=== PATIENT | female | born 1940 | race Caucasian/White ===

== ENCOUNTER → 2020-03-17 15:41 | Outpatient (BNVA) | payer MEDICAID, SELFPAY | PROVIDERS: PCP Internal Medicine; Visit Provider Internal Medicine Gastroenterology ==

== ENCOUNTER 2020-06-11 10:07 | Outpatient (REF) | payer MEDICAID, SELFPAY ==
[2020-06-11 11:15] LABS: MANUAL DIFF FLAG NO
[2020-06-11 11:24] LABS: Basophils Percent Auto 0.3 % (0-2); Eosinophils Absolute Auto 0.1 X10*3/uL (0.0-0.4); Eosinophils Percent Auto 1.6 % (0-4); Hematocrit 31.9 % (37-47); Hemoglobin 9.8 g/dl (12.0-16.0); Imm Gran Abs Auto 0.01 X10*3/uL (0.00-0.03); Imm Gran Pct Auto 0.1 % (0.0-0.4); Lymphocytes Absolute Auto 4.4 X10*3/uL (1.2-4.9); Lymphocytes Percent Auto 49.2 % (20-40); Mean Corpuscular HGB Conc 30.7 g/dl (31.0-35.0); Mean Corpuscular Hemoglobin 23.7 pg (27.0-33.0); Mean Corpuscular Volume 77.1 fL (80-98); Mean Platelet Volume 9.9 fL (9.4-12.3); Monocytes Absolute Auto 0.7 X10*3/uL (0.1-1.2); Monocytes Percent Auto 7.4 % (2-11); Neutrophils Absolute Auto 3.7 X10*3/uL (2.0-8.3); Neutrophils Percent Auto 41.4 % (45-73); Platelet Count 498 X10*3/uL (160-400); Red Blood Count 4.14 X10*6/uL (4.20-5.50); Red Cell Distribution Width 16.4 % (11.0-16.0); White Blood Count 8.9 X10*3/uL (4.8-10.8)
[2020-06-11 11:32] LABS: Estimated Average Glucose 131 mg/dL; Hemoglobin A1c % 6.2 %
[2020-06-11 11:55] LABS: Creatinine Urine 31.32 mg/dL; Microalbum/Creatinine Ratio Ur 44.6 ug/mg cr
[2020-06-11 12:22] LABS: Folate 14.2 ng/mL (> or = 4.0); Vitamin B12 987 pg/mL (200-900)
[2020-06-11 12:26] LABS: Ferritin 4 ng/mL (10-250); TSH reflex Free T4 4.77 uIU/mL (0.32-4.0)
[2020-06-11 12:34] LABS: Anion Gap 15 (12-20); Blood Urea Nitrogen 9 mg/dL (9-16); Calcium 9.9 mg/dL (8.4-10.2); Carbon Dioxide 26 mmol/L (22-29); Chloride 97 mmol/L (96-108); Estimated Glomerular Filt Rate > 60; Glucose Random 138 mg/dL (60-115); Potassium 4.1 mmol/L (3.3-5.1); Sodium 134 mmol/L (135-145)
[2020-06-11 13:21] LABS: Free T4 (Free Thyroxine) 0.89 ng/dL (0.71-1.85)
[2020-06-12 03:11] LABS: LDL Cholesterol Direct 125 mg/dL (<100)
== END 2020-06-11 10:08 | disposition home or self-care (01) ==
LOC: HO.HMGCLDS 10:07
PROVIDERS: Internal Medicine Gastroenterology; PCP Internal Medicine; Visit Provider Internal Medicine
DX: D64.9 Anemia, unspecified (principal); E13.9 Other specified diabetes mellitus without complications; E61.1 Iron deficiency; F41.1 Generalized anxiety disorder; I10 Essential (primary) hypertension; K31.84 Gastroparesis; K59.01 Slow transit constipation; N32.9 Bladder disorder, unspecified; E53.8 Deficiency of other specified B group vitamins
CPT/HCPCS: 36415; 80048; 82043; 82607; 82728; 82746; 83036; 83721; 84439; 84443; 85025

== ENCOUNTER → 2020-07-07 10:46 | Outpatient (BNVA) | payer MEDICAID, SELFPAY | PROVIDERS: Visit Provider Internal Medicine Gastroenterology ==

== ENCOUNTER → 2020-07-09 09:16 | Outpatient (REF) | payer MEDICAID, SELFPAY ==
--- NOTE | 2020-07-09 09:22 | CA_ITS ---
Transthoracic Echocardiogram Patient (Last, First, Middle): Bimal Bower J Gender: Female Date of : 1940 Age: 80 Procedure Date: 07/09/2020 Procedure Type: Transthoracic Echocardiogram Location: OP Height: 165.1 cm Weight: 72.58 kg BSA: 1.80 m2 Heart Rate: bpm BP: 140 / 80 mmHg Systems Qa Analyst: DEISY Ventura MD: Lai Voss MD Tour Escort: Alistair Colin MD Symptoms: Intermittent palpitations. Study Quality: Fair ECG Rhythm: Sinus Conclusions: - 1. Normal LV systolic function with impaired relaxation filling pattern 2. Normal cardiac valvular Doppler 3. Normal RV systolic pressure 4. No pericardial effusion Findings Left Ventricle Normal left ventricular size, thickness, and systolic function. The visually estimated ejection fraction is between 60-65%. Spectral Doppler is indicative of an impaired relaxation filling pattern. E/E prime ratio is between 8 and 15 consistent with indeterminate filling pressures. Calculated peak global longitudinal strain is-16.9% which is marginally reduced Right Ventricle Normal right ventricular cavity size and systolic function. Atria Both atria are normal in size. There is lipomatous hypertrophy of the interatrial septum. There is no evidence of interatrial shunt. Aortic Valve The aortic valve structure and function is likely normal. There is no aortic valve stenosis. There is no aortic valve regurgitation. Mitral Valve Likely normal mitral valve structure and function. There is trace mitral valve regurgitation. There is no mitral valve stenosis. Pulmonic Valve The pulmonic valve was not well visualized. Tricuspid Valve Likely normal tricuspid valve structure and function. There is trace tricuspid valve regurgitation. The right ventricular systolic pressure is normal. The right ventricular systolic pressure is 19 mmHg. Normal right atrial pressure. There is no evidence of pulmonary hypertension. Great Vessels All visible segments of the aorta are normal in size. The pulmonary artery was not well visualized. Venous The inferior vena cava is normal in size and collapses greater than 50% with inspiration. Pericardium/Pleural There is no evidence of pericardial effusion. Prior Study Comparison No significant change compared to prior study dated: 09/06/2017. Measurements 2D Linear Measurements IVSd: 1.12 0.6-0.9/0.6-1.0 cm LVIDd: 3.58 3.9-5.3/4.2-5.9 cm LVIDd Index: 1.99 2.4-3.2/2.2-3.1 cm/m2 LVIDs: 2.75 2.0-3.6 cm LVPWd: 1.12 0.7-1.1 cm Ao Root: 3.10 2.1-3.5 cm LA Diam: 3.30 2.7-3.8/3.0-4.0 cm LAIDs Index: 1.83 1.5-2.3 cm/m2 LV Mass: 157.30 67-162/88-224 g LV Mass Index: 87.39 43-95/49-115 g/m2 LVOT Diam: 2.00 3.0+(-)1.3 cm 2D Systolic Function EF 4C: 63.70 >55% EF 2C: 59.50 >55% EF BiP: 62.20 >55% Mitral Valve MV Pk E: 0.83 MV PK A: 1.13 MV Decel Time: 114.00 E/A: 0.70 E'Lateral: 6.74 E'Medial: 6.96 E/E' Med: 12.00 E/E' Lat: 12.30 PHT: 33.00 MVA PHT: 6.67 Decel Red [place]ow: 7.33 Aortic Valve AoV Pk Toney: 1.46 AoV Mn Toney: 1.02 AoV VTI: 0.30 AoV Pk Grad: 9.00 Aov Mn Grad: 5.00 MARY Cont.VTI: 1.88 LVOT LVOT Pk Toney: 0.78 LVOT Mn Toney: 0.51 LVOT VTI: 0.18 LVOT Pk Grad: 2.00 LVOT Mn Grad: 1.00 LVOT Diam: 2.00 LVOT Area: 3.14 Diastolic Function MV Pk E: 0.83 MV Pk A: 1.13 E/A: 0.70 E'Medial: 6.96 E/E' Med: 12.00 E' Laterial: 6.74 E/E' Lat: 12.30 Tricuspid Valve TR Pk Toney: 2.01 TR Pk Grad: 16.00 RA Press: 3.00 RVSP: 19.00 Great Vessels Aorta Ao Root-2D: 3.10 2.0-3.7 cm Ao Asc: 3.00 2.1-3.4 cm Updated in Other Vendor System with Status of Final Alistair Colin MD electronically signed on 07/09/2020 12:57:43 PM with status of Final
== END ==
LOC: HO.CARD 09:16
PROVIDERS: Visit Provider Internal Medicine Medical Oncology
DX: R00.2 Palpitations (principal); D50.9 Iron deficiency anemia, unspecified
CPT/HCPCS: 93306; 93356

== ENCOUNTER 2020-07-11 13:06 | Outpatient (REF) | payer MEDICAID, SELFPAY | END 2020-07-11 13:07 | disposition home or self-care (01) | LOC: HO.MDS 13:06 | PROVIDERS: PCP Internal Medicine; Visit Provider Internal Medicine Medical Oncology | DX: D50.9 Iron deficiency anemia, unspecified (principal) | CPT/HCPCS: 96365; J1439 ==

== ENCOUNTER 2020-07-18 15:41 | Outpatient (REF) | payer MEDICAID, SELFPAY | END 2020-07-18 15:42 | disposition home or self-care (01) | LOC: HO.MDS 15:41 | PROVIDERS: PCP Internal Medicine; Visit Provider Internal Medicine Medical Oncology | DX: D50.9 Iron deficiency anemia, unspecified (principal) | CPT/HCPCS: 96365; J1439 ==

== ENCOUNTER → 2020-07-24 14:15 | Outpatient (BNVA) | payer MEDICAID, SELFPAY | PROVIDERS: PCP Internal Medicine; Visit Provider Internal Medicine Cardiovascular Disease | DX: R00.2 Palpitations (principal); I10 Essential (primary) hypertension | CPT/HCPCS: 93005; 99212 ==

== ENCOUNTER 2020-08-22 11:49 | Outpatient (REF) | payer MEDICAID, SELFPAY ==
[2020-08-22 14:00] LABS: MANUAL DIFF FLAG NO
[2020-08-22 14:16] LABS: Basophils Percent Auto 0.6 % (0-2); Eosinophils Absolute Auto 0.2 X10*3/uL (0.0-0.4); Eosinophils Percent Auto 2.6 % (0-4); Hematocrit 37.2 % (37-47); Hemoglobin 12.2 g/dl (12.0-16.0); Imm Gran Abs Auto 0.02 X10*3/uL (0.00-0.03); Imm Gran Pct Auto 0.3 % (0.0-0.4); Lymphocytes Absolute Auto 2.8 X10*3/uL (1.2-4.9); Lymphocytes Percent Auto 40.7 % (20-40); Mean Corpuscular HGB Conc 32.8 g/dl (31.0-35.0); Mean Corpuscular Hemoglobin 27.6 pg (27.0-33.0); Mean Corpuscular Volume 84.2 fL (80-98); Mean Platelet Volume 10.7 fL (9.4-12.3); Monocytes Absolute Auto 0.6 X10*3/uL (0.1-1.2); Monocytes Percent Auto 8.5 % (2-11); Neutrophils Absolute Auto 3.2 X10*3/uL (2.0-8.3); Neutrophils Percent Auto 47.3 % (45-73); Platelet Count 402 X10*3/uL (160-400); Red Blood Count 4.42 X10*6/uL (4.20-5.50); Red Cell Distribution Width 20.3 % (11.0-16.0); White Blood Count 6.8 X10*3/uL (4.8-10.8)
[2020-08-22 14:23] LABS: Estimated Average Glucose 126 mg/dL
[2020-08-22 14:27] LABS: Alanine Aminotransferase 12 U/L (0-31); Albumin Level 4.1 g/dL (3.5-5.0); Alkaline Phosphatase 70 U/L (39-117); Anion Gap 17 (12-20); Aspartate Amino Transferase 11 U/L (5-31); Bilirubin Total 0.8 mg/dL (0.0-1.0); Blood Urea Nitrogen 8 mg/dL (9-16); Carbon Dioxide 23 mmol/L (22-29); Chloride 97 mmol/L (96-108); Estimated Glomerular Filt Rate > 60; Glucose Random 195 mg/dL (60-115); Potassium 3.8 mmol/L (3.3-5.1); Sodium 133 mmol/L (135-145); Total Protein 7.9 g/dL (6.5-8.0)
[2020-08-22 14:44] LABS: Ferritin 499 ng/mL (10-250)
[2020-08-22 14:50] LABS: TSH reflex Free T4 2.47 uIU/mL (0.32-4.0)
== END 2020-08-22 11:50 | disposition home or self-care (01) ==
LOC: HO.HMGCLDS 11:49
PROVIDERS: Internal Medicine Gastroenterology; PCP Internal Medicine; Visit Provider Internal Medicine
DX: E13.9 Other specified diabetes mellitus without complications (principal); F41.1 Generalized anxiety disorder; I10 Essential (primary) hypertension; K59.01 Slow transit constipation; N32.9 Bladder disorder, unspecified; E61.1 Iron deficiency
CPT/HCPCS: 36415; 80053; 82728; 83036; 84443; 85025

== ENCOUNTER 2020-10-15 17:49 | Emergency (ER) | payer MEDICAID, SELFPAY | END 2020-10-15 20:07 | disposition left against medical advice (07) | LOC: HO.ED 20:05 | PROVIDERS: Emergency Provider Emergency Medicine; PCP Internal Medicine | DX: R10.9 Unspecified abdominal pain (principal) ==

== ENCOUNTER 2021-01-02 16:02 | Outpatient (REF) | payer MEDICAID, SELFPAY ==
[2021-01-02 16:18] LABS: MANUAL DIFF FLAG NO
[2021-01-02 16:41] LABS: Basophils Percent Auto 0.4 % (0-2); Eosinophils Absolute Auto 0.3 X10*3/uL (0.0-0.4); Eosinophils Percent Auto 3.2 % (0-4); Hematocrit 37.7 % (37.0-47.0); Hemoglobin 12.5 g/dl (12.0-16.0); Imm Gran Abs Auto 0.02 X10*3/uL (0.00-0.03); Imm Gran Pct Auto 0.2 % (0.0-0.4); Lymphocytes Absolute Auto 3.3 X10*3/uL (1.2-4.9); Lymphocytes Percent Auto 35.5 % (20-40); Mean Corpuscular HGB Conc 33.2 g/dl (31.0-35.0); Mean Corpuscular Hemoglobin 29.2 pg (27.0-33.0); Mean Corpuscular Volume 88.1 fL (80.0-98.0); Mean Platelet Volume 10.5 fL (9.4-12.3); Monocytes Absolute Auto 0.8 X10*3/uL (0.1-1.2); Monocytes Percent Auto 8.4 % (2-11); Neutrophils Absolute Auto 4.9 x10*3/uL (2.0-8.3); Neutrophils Percent Auto 52.3 % (45-73); Platelet Count 372 X10*3/uL (160-400); Red Blood Count 4.28 X10*6/uL (4.20-5.50); Red Cell Distribution Width 13.7 % (11.0-16.0); White Blood Count 9.3 X10*3/uL (4.8-10.8)
[2021-01-02 16:43] LABS: Estimated Average Glucose 137 mg/dL; Hemoglobin A1C 148.8286 umol/L; Hemoglobin A1c % 6.4 %
[2021-01-02 17:07] LABS: Alanine Aminotransferase 13 U/L (0-31); Alkaline Phosphatase 69 U/L (39-117); Anion Gap 15 (12-20); Aspartate Amino Transferase 11 U/L (5-31); Blood Urea Nitrogen 9 mg/dL (9-16); Calcium 10.1 mg/dL (8.4-10.2); Carbon Dioxide 26 mmol/L (22-29); Chloride 96 mmol/L (96-108); Estimated Glomerular Filt Rate > 60; Glucose Random 167 mg/dL (60-115); Potassium 4.1 mmol/L (3.3-5.1); Sodium 133 mmol/L (135-145); Total Protein 7.9 g/dL (6.5-8.0)
[2021-01-02 17:30] LABS: Vitamin B12 354 pg/mL (200-900)
[2021-01-02 17:32] LABS: Ferritin 234 ng/mL (10-250); TSH reflex Free T4 3.37 uIU/mL (0.32-4.0)
[2021-01-08 14:11] LABS: Vitamin D 25-OH, D2 <4 ng/mL; Vitamin D 25-OH, D3 43 ng/mL; Vitamin D 25-OH, Total 43 ng/mL (30-100)
== END 2021-01-02 16:03 | disposition home or self-care (01) ==
LOC: HO.LAB 16:02
PROVIDERS: PCP Internal Medicine; Visit Provider Internal Medicine
DX: R26.2 Difficulty in walking, not elsewhere classified (principal); E61.1 Iron deficiency; N32.9 Bladder disorder, unspecified; F41.1 Generalized anxiety disorder; I10 Essential (primary) hypertension; E13.9 Other specified diabetes mellitus without complications; R53.1 Weakness
CPT/HCPCS: 36415; 80053; 82306; 82607; 82728; 83036; 84443; 85025

== ENCOUNTER 2021-05-15 13:07 | Outpatient (REF) | payer MEDICAID, SELFPAY ==
[2021-05-15 13:47] LABS: MANUAL DIFF FLAG NO
[2021-05-15 13:53] LABS: Basophils Percent Auto 0.5 % (0-2); Eosinophils Absolute Auto 0.1 X10*3/uL (0.0-0.4); Eosinophils Percent Auto 1.4 % (0-4); Hematocrit 39.1 % (37.0-47.0); Hemoglobin 12.6 g/dl (12.0-16.0); Imm Gran Abs Auto 0.03 X10*3/uL (0.00-0.03); Imm Gran Pct Auto 0.4 % (0.0-0.4); Mean Corpuscular HGB Conc 32.2 g/dl (31.0-35.0); Mean Corpuscular Hemoglobin 28.3 pg (27.0-33.0); Mean Corpuscular Volume 87.7 fL (80.0-98.0); Mean Platelet Volume 10.5 fL (9.4-12.3); Monocytes Absolute Auto 0.6 X10*3/uL (0.1-1.2); Neutrophils Absolute Auto 4.6 x10*3/uL (2.0-8.3); Neutrophils Percent Auto 54.7 % (45-73); Platelet Count 388 X10*3/uL (160-400); Red Blood Count 4.46 X10*6/uL (4.20-5.50); Red Cell Distribution Width 14.1 % (11.0-16.0); White Blood Count 8.3 X10*3/uL (4.8-10.8)
[2021-05-15 14:06] LABS: Estimated Average Glucose 128 mg/dL; Hemoglobin A1c % 6.1 %
[2021-05-15 14:21] LABS: Alanine Aminotransferase 15 U/L (0-31); Albumin Level 3.9 g/dL (3.5-5.0); Alkaline Phosphatase 60 U/L (39-117); Anion Gap 14 (12-20); Aspartate Amino Transferase 11 U/L (5-31); Bilirubin Total 1.2 mg/dL (0.0-1.0); Blood Urea Nitrogen 10 mg/dL (9-16); Calcium 10.3 mg/dL (8.4-10.2); Carbon Dioxide 28 mmol/L (22-29); Chloride 97 mmol/L (96-108); Estimated Glomerular Filt Rate > 60; Glucose Random 172 mg/dL (60-115); Potassium 4.2 mmol/L (3.3-5.1); Sodium 135 mmol/L (135-145); Total Protein 7.7 g/dL (6.5-8.0)
[2021-05-15 14:41] LABS: TSH reflex Free T4 2.86 uIU/mL (0.32-4.0)
== END 2021-05-15 13:08 | disposition home or self-care (01) ==
LOC: HO.HMGCLDS 13:07
PROVIDERS: Visit Provider Internal Medicine
DX: R79.89 Other specified abnormal findings of blood chemistry (principal); E13.9 Other specified diabetes mellitus without complications; E66.09 Other obesity due to excess calories; F41.1 Generalized anxiety disorder; I10 Essential (primary) hypertension; N32.9 Bladder disorder, unspecified
CPT/HCPCS: 36415; 80053; 83036; 84443; 85025

== ENCOUNTER 2021-10-03 11:57 | Outpatient (REF) | payer MEDICAID, SELFPAY ==
[2021-10-03 14:00] LABS: Basophils Percent Auto 0.5 % (0-2); Eosinophils Absolute Auto 0.2 X10*3/uL (0.0-0.4); Hematocrit 36.9 % (37.0-47.0); Hemoglobin 12.4 g/dl (12.0-16.0); Imm Gran Abs Auto 0.03 X10*3/uL (0.00-0.03); Imm Gran Pct Auto 0.4 % (0.0-0.4); Lymphocytes Percent Auto 36.6 % (20-40); MANUAL DIFF FLAG NO; Mean Corpuscular HGB Conc 33.6 g/dl (31.0-35.0); Mean Corpuscular Hemoglobin 29.4 pg (27.0-33.0); Mean Corpuscular Volume 87.4 fL (80.0-98.0); Mean Platelet Volume 10.9 fL (9.4-12.3); Monocytes Absolute Auto 0.6 X10*3/uL (0.1-1.2); Monocytes Percent Auto 7.1 % (2-11); Neutrophils Absolute Auto 4.4 x10*3/uL (2.0-8.3); Neutrophils Percent Auto 53.4 % (45-73); Platelet Count 353 X10*3/uL (160-400); Red Blood Count 4.22 X10*6/uL (4.20-5.50); Red Cell Distribution Width 13.9 % (11.0-16.0); White Blood Count 8.2 X10*3/uL (4.8-10.8)
[2021-10-03 14:11] LABS: Estimated Average Glucose 131 mg/dL; Hemoglobin A1c % 6.2 %
[2021-10-03 14:13] LABS: Alanine Aminotransferase 12 U/L (0-31); Albumin Level 3.9 g/dL (3.5-5.0); Alkaline Phosphatase 56 U/L (39-117); Anion Gap 16 (12-20); Aspartate Amino Transferase 10 U/L (5-31); Bilirubin Total 1.4 mg/dL (0.0-1.0); Blood Urea Nitrogen 11 mg/dL (9-16); Calcium 9.4 mg/dL (8.4-10.2); Carbon Dioxide 26 mmol/L (22-29); Chloride 97 mmol/L (96-108); Estimated Glomerular Filt Rate > 60; Glucose Random 157 mg/dL (60-115); Potassium 3.6 mmol/L (3.3-5.1); Sodium 135 mmol/L (135-145); Total Protein 7.6 g/dL (6.5-8.0)
[2021-10-03 14:34] LABS: TSH reflex Free T4 2.95 uIU/mL (0.32-4.0)
[2021-10-04 09:02] LABS: LDL Cholesterol Direct 138 mg/dL (<100)
[2021-10-05 08:32] LABS: Vitamin B12 227 pg/mL (200-900)
[2021-10-07 15:17] LABS: Vitamin D 25-OH, D2 <4 ng/mL; Vitamin D 25-OH, D3 38 ng/mL; Vitamin D 25-OH, Total 38 ng/mL (30-100)
== END 2021-10-03 11:58 | disposition home or self-care (01) ==
LOC: HO.HMGCLDS 11:57
PROVIDERS: PCP Internal Medicine; Visit Provider Internal Medicine
DX: D64.9 Anemia, unspecified (principal); E13.9 Other specified diabetes mellitus without complications; E66.09 Other obesity due to excess calories; F41.1 Generalized anxiety disorder; I10 Essential (primary) hypertension; K31.84 Gastroparesis; M17.10 Unilateral primary osteoarthritis, unspecified knee; N32.9 Bladder disorder, unspecified; R29.6 Repeated falls; R53.1 Weakness; R79.89 Other specified abnormal findings of blood chemistry
CPT/HCPCS: 36415; 80053; 82306; 82607; 83036; 83721; 84443; 85025

== ENCOUNTER 2022-06-30 12:27 | Outpatient (REF) | payer MEDICAID, SELFPAY ==
[2022-06-30 14:01] LABS: MANUAL DIFF FLAG NO
[2022-06-30 14:19] LABS: Estimated Average Glucose 146 mg/dL; Hemoglobin A1c % 6.7 %
[2022-06-30 14:26] LABS: Basophils Absolute Auto 0.1 X10*3/uL (0.0-0.2); Basophils Percent Auto 0.8 % (0-2); Eosinophils Absolute Auto 0.2 X10*3/uL (0.0-0.4); Eosinophils Percent Auto 2.8 % (0-4); Hematocrit 36.2 % (37.0-47.0); Hemoglobin 11.4 g/dl (12.0-16.0); Imm Gran Abs Auto 0.02 X10*3/uL (0.00-0.03); Imm Gran Pct Auto 0.3 % (0.0-0.4); Mean Corpuscular HGB Conc 31.5 g/dl (31.0-35.0); Mean Corpuscular Hemoglobin 26.8 pg (27.0-33.0); Mean Platelet Volume 10.9 fL (9.4-12.3); Monocytes Absolute Auto 0.6 X10*3/uL (0.1-1.2); Monocytes Percent Auto 8.2 % (2-11); Neutrophils Absolute Auto 3.4 x10*3/uL (2.0-8.3); Neutrophils Percent Auto 46.9 % (45-73); Platelet Count 412 X10*3/uL (160-400); Red Blood Count 4.26 X10*6/uL (4.20-5.50); Red Cell Distribution Width 15.4 % (11.0-16.0); White Blood Count 7.2 X10*3/uL (4.8-10.8)
[2022-06-30 14:26] LABS: Appearance Urine Clear; Color Urine Yellow; Glucose Urine UA Negative (Negative); Leukocyte Esterase Urine Negative (Negative); Nitrite Urine Negative (Negative); PH 7.5 (5.0-9.0); Specific Gravity - Urine 1.015 (1.005-1.025); Urine Blood Negative (Negative); Urine Ketones Negative (Negative); Urine Protein Negative (Neg-Trace)
[2022-06-30 14:31] LABS: Alanine Aminotransferase 12 U/L (0-31); Albumin Level 3.7 g/dL (3.5-5.0); Alkaline Phosphatase 55 U/L (39-117); Anion Gap 9 (12-20); Aspartate Amino Transferase 11 U/L (5-31); Bilirubin Total 0.9 mg/dL (0.0-1.0); Blood Urea Nitrogen 13 mg/dL (9-16); Calcium 9.9 mg/dL (8.4-10.2); Carbon Dioxide 33 mmol/L (22-29); Chloride 100 mmol/L (96-108); Cholesterol 209 mg/dL; Estimated Glomerular Filt Rate > 60; Glucose Fasting 148 mg/dL (60-99); HDL Cholesterol 48 mg/dL; LDL Cholesterol Calculated 119 mg/dl; Potassium 4.4 mmol/L (3.3-5.1); Sodium 138 mmol/L (135-145); Total Protein 7.2 g/dL (6.5-8.0); Triglycerides 210 mg/dL
[2022-06-30 14:46] LABS: Ferritin 16 ng/mL (10-250); Vitamin B12 575 pg/mL (200-900)
[2022-07-05 15:18] LABS: Vitamin D 25-OH, D2 <4 ng/mL; Vitamin D 25-OH, D3 40 ng/mL; Vitamin D 25-OH, Total 40 ng/mL (30-100)
== END 2022-06-30 12:28 | disposition home or self-care (01) ==
LOC: HO.HMGCLDS 12:27
PROVIDERS: PCP Internal Medicine; Visit Provider Internal Medicine
DX: D64.9 Anemia, unspecified (principal); E13.9 Other specified diabetes mellitus without complications; E66.09 Other obesity due to excess calories; F41.1 Generalized anxiety disorder; I10 Essential (primary) hypertension; K31.84 Gastroparesis; N32.9 Bladder disorder, unspecified; R79.89 Other specified abnormal findings of blood chemistry; R35.89 Other polyuria; R53.1 Weakness
CPT/HCPCS: 36415; 80053; 80061; 81003; 82306; 82607; 82728; 83036; 84443; 85025

== ENCOUNTER 2022-10-20 12:07 | Outpatient (AMB) | payer MEDICAID, SELFPAY ==
[2022-10-20 12:08] VITALS: BP 158/82; PULSE 80; O2SAT 95; BMI 29.3
--- NOTE | 2022-10-20 12:08 | MHC.PC.OV ---
Vital Signs 10/20/22 12:08 Height 5 ft Weight 150 lb 4 oz BMI 29.3 BP 158/82 H Blood Pressure Location Lt brachial Position Sitting Pulse 80 Pulse Source Pulse Oximeter Pulse Oximetry (%) 95 Oxygen Delivery Method Room Air Intake Visit Reasons: HDF ~ Post hospital discharge FU Allergies simvastatin Allergy (Unknown, Verified 10/20/22 12:09) shortness of breath Medication List - Last Reconciled 10/20/22 by Josse Robles MD alprazolam 0.25 mg PO ONCE PRN 30 days aspirin (Adult Aspirin Regimen) 81 mg PO DAILY 90 days atenolol 50 mg PO BID blood sugar diagnostic (FreeStyle Lite Strips) Use to test blood sugar twice daily. cholecalciferol (vitamin D3) 25 mcg PO DAILY clonidine HCl 0.2 mg PO BEDTIME 90 days commode 3-in-1 commode chair cyanocobalamin (vitamin B-12) 1,000 mcg PO DAILY 90 days docusate sodium (DOK) 100 mg PO DAILY PRN 90 days escitalopram oxalate 10 mg PO DAILY 90 days glipizide 5 mg PO BID 90 days levothyroxine 25 mcg PO DAILY 90 days losartan 50 mg PO BID metformin 1,000 mg PO BID 90 days metoclopramide HCl 5 mg PO ONCE PRN omeprazole 20 mg PO DAILY polyethylene glycol 3350 (Miralax) 17 grams PO DAILY sennosides (Natural Senna Laxative) 8.6 mg PO BEDTIME simethicone (Gas Relief (simethicone)) 0.6 mL PO QID PRN 90 days tolterodine ER 2 mg PO DAILY 90 days [tub transfer bench As directed] Tobacco use date assessed: 10/20/22 Fall risk assessment: 2 + Falls in past year Last assessed Fall Risk: 10/20/22 Dental Screening Dental Screen Date: 10/20/22 Did you have a dental visit in the last 12 months?: No Did you have a dental problem in the last 6 months where you did not have access to dental care?: No Was dental information given to patient?: No HPI HDF ~ Post hospital discharge FU HPI Details Patient is 82-year-old female this is a hospital discharge follow-up from October 15 to October 18. Patient presented with increasing shortness of breath up day before patient was seen in urgent care prednisone and antibiotic was started in chest x-ray was ordered Patient presented with increasing shortness of breath up day before patient was seen in urgent care prednisone and antibiotic was started in chest x-ray was ordered But patient never had a chance to do a chest x-ray as she has started having left arm weakness which progressively got worse. Patient have a history of mediastinal mass that she declined workup 12 years ago. In emergency room her left hand strength was 3 x 4 Patient has hypertension and she is taking number of medications to control the hypertension by Nephrology. She is also on Lipitor 40 mg for lipid control She is diabetic and is on glipizide 5 mg and metformin 1 g daily Other medications are omeprazole and bladder medication for overactive bladder. 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 Patient was supposed to be discharged to rehab but family took her home. Left anterior mediastinal mass has been change in size and is now measuring 8.6 x 5.4 cm compared to approximately 5.3 x 4.2 cm on September of 2020 Patient has a visiting nurse come over she is going through physical therapy at home However her Xanax was held because patient was having difficulty with the physical therapy and she got anxious and her blood pressure shot up I have discussed with the family member that we need to make certain decisions at this time whether to keep patient comfortable and give her Xanax and control blood pressure or to try to get her stronger. However considering the findings of MRI and chest x-ray there is increase risk of future strokes. At this point it is highly important for the family to be aware of possibility of recurrent hospitalizations I have discussed the MOLST form with the family member and handed to them they will discuss it further at home with the patient and other family members and make that decision. Patient has appointment early next month we can address that then. [facility] Medical History Anxiety, generalized Bladder disorder Constipation by delayed colonic transit CVA (cerebral vascular accident) Diabetes 1.5, managed as type 2 Gastroparesis Hypertension, essential Iron deficiency Low hemoglobin Surgical History No pertinent past surgical history Family History Father No problems noted. Mother No problems noted. Brother Diabetes Sister Diabetes Social History Household Members: Children Housing: House Are you a primary customer care coordinator to a significant other at home: No Do you presently have visiting nurse or other home services: Yes (physical therapy) Alcohol intake: never Patient Tobacco Use Status: Never used Tobacco e-Cigarette/Vaping Use: Never Used service: No Current occupational status: retired Cognitive needs: No Hearing needs: No Vision needs: Yes Questionnaire Thrive Questionnaire Date Thrive assessed: 06/30/22 AUDIT C Alcohol Use Questionnaire (AUDIT-C) 1. How often do you have a drink containing alcohol?: Never 3. How often do you have six or more drinks on one occasion?: Never Total Score: 0 Score Reviewed/Action Taken: Yes Review of Systems Const Denies chills and Denies fever(s) ENT Denies epistaxis and Denies nasal discharge Card Denies chest pain Resp Denies chest congestion, Denies cough and Denies hemoptysis GI Denies diarrhea and Denies nausea Skin/Breast Denies rash Neuro Reports no additional complaints Psych Reports no additional complaints Endo Reports no additional complaints Physical exam (Primary Care) Vital Signs: Last Vital Signs Pulse 80 10/20/22 12:08 BP 158/82 H 10/20/22 12:08 Pulse Ox 95 10/20/22 12:08 Oxygen Delivery Method Room Air 10/20/22 12:08 BMI result Body Mass Index 29.3 Tobacco/Smoking Status: Tobacco use Status Tobacco use date assessed 10/20/22 10/20/22 12:09 Patient Tobacco Use Status Never used Tobacco 10/20/22 12:09 e-Cigarette/Vaping Use Never Used 10/20/22 12:09 Thrive Assessment: Date of Thrive Assessment Date Thrive assessed 05/03/23 08/23/23 12:09 Forms completed: Health Care Proxy and MOLST Actual minutes spent: 17 Const General: cooperative, comfortable and no acute distress Orientation/consciousness: patient oriented x3 HENMT Head: Yes normocephalic Eyes General: appearance normal, both eyes and all related structures Neck Neck: Yes supple Resp Effort & Inspection: normal respiratory effort, no cough and no stridor Cardio Rhythm: regular rhythm Heart sounds: S1 normal heart sound present and S2 normal heart sound present Skin General skin exam: turgor normal Neuro Other: Wheelchair dependent left hand weaker than right lower extremity strand 4 x 4 left leg 4 x 4 right leg General: patient oriented x3, tone normal and moves all extremities Extrem Right lower extremity: no edema Left lower extremity: no edema Assessment and Plan Assessment & Plan (1) Hospital discharge follow-up: Code(s): Z09 - Encounter for follow-up examination after completed treatment for conditions other than malignant neoplasm (2) Mediastinal mass: Code(s): J98.59 - Other diseases of mediastinum, not elsewhere classified (3) Recurrent strokes: Code(s): I63.9 - Cerebral infarction, unspecified (4) Recurrent falls: Code(s): R29.6 - Repeated falls (5) Uncontrolled hypertension: Code(s): I10 - Essential (primary) hypertension (6) Diabetes 1.5, managed as type 2: Code(s): E13.9 - Other specified diabetes mellitus without complications (7) Anxiety, generalized: Code(s): F41.1 - Generalized anxiety disorder (8) Bladder disorder: Code(s): N32.9 - Bladder disorder, unspecified (9) Gastroparesis: Code(s): K31.84 - Gastroparesis (10) Frail elderly: Code(s): R54 - Age-related physical debility (11) Wheelchair dependence: Code(s): Z99.3 - Dependence on wheelchair Plan Patient is 82-year-old female this is a hospital discharge follow-up from October 15 to October 18. Patient presented with increasing shortness of breath up day before patient was seen in urgent care prednisone and antibiotic was started in chest x-ray was ordered Patient presented with increasing shortness of breath up day before patient was seen in urgent care prednisone and antibiotic was started in chest x-ray was ordered But patient never had a chance to do a chest x-ray as she has started having left arm weakness which progressively got worse. Patient have a history of mediastinal mass that she declined workup 12 years ago. In emergency room her left hand strength was 3 x 4 Patient has hypertension and she is taking number of medications to control the hypertension by Nephrology. She is also on Lipitor 40 mg for lipid control She is diabetic and is on glipizide 5 mg and metformin 1 g daily Other medications are omeprazole and bladder medication for overactive bladder. 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 Patient was supposed to be discharged to rehab but family took her home. Left anterior mediastinal mass has been change in size and is now measuring 8.6 x 5.4 cm compared to approximately 5.3 x 4.2 cm on September of 2020 Patient has a visiting nurse come over she is going through physical therapy at home However her Xanax was held because patient was having difficulty with the physical therapy and she got anxious and her blood pressure shot up I have discussed with the family member that we need to make certain decisions at this time whether to keep patient comfortable and give her Xanax and control blood pressure or to try to get her stronger. However considering the findings of MRI and chest x-ray there is increase risk of future strokes. At this point it is highly important for the family to be aware of possibility of recurrent hospitalizations I have discussed the MOLST form with the family member and handed to them they will discuss it further at home with the patient and other family members and make that decision. Patient has appointment early next month we can address that then. Medications: New sennosides (Natural Senna Laxative) take 1-2 tablets by mouth every night at bedtimes PRN for constipation 8.6 mg PO BEDTIME 90 tabs 0RF omeprazole 20 mg PO DAILY 90 caps 0RF Epigastric pain/dyspepsia Refilled alprazolam 0.25 mg PO ONCE PRN 30 tabs 1RF anxiety 30 days F41.1 - Generalized anxiety disorder aspirin (Adult Aspirin Regimen) 81 mg PO DAILY 90 tabs 3RF 90 days cyanocobalamin (vitamin B-12) 1,000 mcg PO DAILY 90 tabs 3RF 90 days docusate sodium (DOK) 1-2 capsules by mouth every night at bedtimes PRN 100 mg PO DAILY PRN 90 caps 8RF constipation 90 days escitalopram oxalate 10 mg PO DAILY 90 tabs 1RF Anxiety 90 days glipizide 5 mg PO BID 180 tabs 3RF Diabetes 90 days levothyroxine 25 mcg PO DAILY 90 caps 3RF Thyroid 90 days R79.89 - Other specified abnormal findings of blood chemistry metformin 1,000 mg PO BID 180 tabs 1RF Diabetes 90 days metoclopramide HCl 5 mg PO ONCE PRN 90 tabs 0RF for nausea/vomiting tolterodine ER take one tablet by mouth every morning 2 mg PO DAILY 90 caps 3RF Urinary incontinence 90 days Coding Level of Care Code Est Pt Level 5 (72194) Diagnoses Hospital discharge follow-up Z09 Mediastinal mass J98.59 Recurrent strokes I63.9 Recurrent falls R29.6 Uncontrolled hypertension I10 Diabetes 1.5, managed as type 2 E13.9 Anxiety, generalized F41.1 Bladder disorder N32.9 Gastroparesis K31.84 Frail elderly R54 Wheelchair dependence Z99.3 Time Spent (min) 46 Comment hospital notes, discussion with family, coordination of care, charting
== END 2022-10-20 13:04 | disposition home or self-care (01) ==
PROVIDERS: PCP Internal Medicine; Visit Provider Internal Medicine
DX: I10 Essential (primary) hypertension (principal); E13.9 Other specified diabetes mellitus without complications; I63.9 Cerebral infarction, unspecified; Z09 Encounter for follow-up examination after completed treatment for conditions other than malignant neoplasm; J98.59 Other diseases of mediastinum, not elsewhere classified; R29.6 Repeated falls; F41.1 Generalized anxiety disorder; N32.9 Bladder disorder, unspecified; K31.84 Gastroparesis; R54 Age-related physical debility; Z99.3 Dependence on wheelchair
CPT/HCPCS: 99215

== ENCOUNTER 2023-03-14 14:45 | Outpatient (AMB) | payer MEDICAID, SELFPAY ==
--- NOTE | 2023-03-14 14:47 | HO.NEPHOV_ITS ---
HPI HPI Comments History of Present Illness Details Elderly woman with a history of resistant hypertension Recently hospitalized at [facility]. She probably had a TIA. During workup she was found to have a mediastinal mass. According to her son she has had this mass for almost 10-15 years however the recent scan shows an increase in the size. The mediastinal mass measures about 9 cm. The family does not want to proceed with any further workup. FORMERLY [facility], [facility]–1983 Medical History Anxiety, generalized Bladder disorder Constipation by delayed colonic transit CVA (cerebral vascular accident) Diabetes 1.5, managed as type 2 Gastroparesis Hypertension, essential Iron deficiency Low hemoglobin Surgical History No pertinent past surgical history Family History Father No problems noted. Mother No problems noted. Brother Diabetes Sister Diabetes Social History Household Members: Children Housing: House Are you a primary hospice home care coordinator to a significant other at home: No Do you presently have visiting nurse or other home services: Yes (physical therapy) Alcohol intake: never Patient Tobacco Use Status: Never used Tobacco e-Cigarette/Vaping Use: Never Used service: No Current occupational status: retired Cognitive needs: No Hearing needs: No Vision needs: Yes Vital Signs 03/14/23 14:47 03/14/23 14:48 Height 5 ft 5 ft Weight 150 lb 2 oz BMI 29.3 BP 160/82 H Blood Pressure Location Lt brachial Position Sitting Pulse 80 Pulse Source Pulse Oximeter Pulse Oximetry (%) 94 Oxygen Delivery Method Room Air Physical Exam Vital Signs: Last Vital Signs Pulse 80 03/14/23 14:48 BP 160/82 H 03/14/23 14:48 Pulse Ox 94 03/14/23 14:48 Oxygen Delivery Method Room Air 03/14/23 14:48 BMI result Body Mass Index 29.3 Const Other: Appears comfortable. Not in distress neck supple. Lungs are air entry equal. Heart S1-S2 heard no gallop. Abdomen soft nontender. Neuro alert and awake. Extremities trace edema. Assessment & Plan Assessment & Plan (1) Hypertension, essential: Code(s): I10 - Essential (primary) hypertension Plan Elderly woman with resistant hypertension. At present blood pressure has been better controlled with the current regimen. She has not taking the diltiazem for the last few days and office readings elevated today. I will restart the diltiazem along with other medications. We had a lengthy discussion with her son and we will continue to manage her conservatively. Encouraged to stand low-sodium diet. Continue overt nephrotoxic agents and will monitor renal function periodically. Orders: Orders Blood Urea Nitrogen Today I10 - Essential (primary) hypertension Calcium Today I10 - Essential (primary) hypertension Complete Blood Count no Diff Today I10 - Essential (primary) hypertension Electrolytes Today I10 - Essential (primary) hypertension Creatinine Today I10 - Essential (primary) hypertension Medications: New diltiazem HCl 180 mg PO DAILY 30 caps 5RF Coding Level of Care Code Est Pt Level 4 (90728) Diagnoses Hypertension, essential I10 Results Reviewed Nephrology Results: Hgb 11.4 g/dl (12.0-16.0) L 06/30/22 WBC 7.2 X10*3/uL (4.8-10.8) 06/30/22 Plt Count 412 X10*3/uL (160-400) H 06/30/22 Sodium 138 mmol/L (135-145) 06/30/22 Potassium 4.4 mmol/L (3.3-5.1) 06/30/22 Chloride 100 mmol/L (96-108) 06/30/22 Carbon Dioxide 33 mmol/L (22-29) H 06/30/22 BUN 13 mg/dL (9-16) 06/30/22 Creatinine 0.64 mg/dL (0.5-1.4) 06/30/22 Calcium 9.9 mg/dL (8.4-10.2) 06/30/22 Urine Protein Negative mg/dL (Neg-Trace) 06/30/22
[2023-03-14 14:48] VITALS: BP 160/82; PULSE 80; O2SAT 94; BMI 29.3
== END 2023-03-14 15:18 | disposition home or self-care (01) ==
PROVIDERS: PCP Internal Medicine; Visit Provider Internal Medicine Hypertension Specialist
DX: I10 Essential (primary) hypertension (principal)
CPT/HCPCS: 99214

== ENCOUNTER → 2023-03-14 14:45 | Outpatient (BNVA) | payer MEDICAID, SELFPAY | PROVIDERS: PCP Internal Medicine; Visit Provider Internal Medicine Hypertension Specialist | DX: I10 Essential (primary) hypertension (principal) | CPT/HCPCS: 99212 ==

== ENCOUNTER 2023-07-20 12:05 | Outpatient (AMB) | payer MEDICAID, SELFPAY ==
[2023-07-20 12:09] VITALS: BP 164/78; PULSE 86; O2SAT 94
--- NOTE | 2023-07-20 12:09 | MHC.PC.OV ---
Vital Signs 07/20/23 12:09 Height 5 ft BMI Reason not done Patient refused/unable BP 164/78 H Blood Pressure Location Rt brachial Position Sitting Pulse 86 Pulse Source Pulse Oximeter Pulse Oximetry (%) 94 Oxygen Delivery Method Room Air Intake Visit Reasons: HTN fatigue Allergies simvastatin Allergy (Unknown, Verified 07/20/23 12:17) shortness of breath Medication List - Last Reconciled 07/20/23 by Josse Robles MD alprazolam 0.25 mg PO ONCE PRN 30 days aspirin (Adult Aspirin Regimen) 81 mg PO DAILY 90 days atenolol 50 mg PO BID blood sugar diagnostic (FreeStyle Lite Strips) Use to test blood sugar twice daily. cholecalciferol (vitamin D3) 25 mcg PO DAILY clonidine HCl 0.2 mg PO BEDTIME 90 days commode 3-in-1 commode chair cyanocobalamin (vitamin B-12) 1,000 mcg PO DAILY 90 days diltiazem HCl CD 180 mg PO DAILY docusate sodium (DOK) 100 mg PO DAILY PRN 90 days escitalopram oxalate 10 mg PO DAILY PRN glipizide 5 mg PO BID 90 days hydrochlorothiazide 12.5 mg PO DAILY losartan 50 mg PO BID metformin 1,000 mg PO BID 90 days metoclopramide HCl 5 mg PO ONCE PRN omeprazole 20 mg PO DAILY polyethylene glycol 3350 (Miralax) 17 grams PO DAILY sennosides (Natural Senna Laxative) 8.6 mg PO BEDTIME simethicone (Gas Relief (simethicone)) 0.6 mL PO QID PRN 90 days [tub transfer bench As directed] Tobacco use date assessed: 07/20/23 Fall risk assessment: No Falls in past year Last assessed Fall Risk: 07/20/23 Dental Screening Dental Screen Date: 07/20/23 Did you have a dental visit in the last 12 months?: Yes Did you have a dental problem in the last 6 months where you did not have access to dental care?: No Was dental information given to patient?: Patient has dentist HPI HTN fatigue HPI Details Patient is 83-year-old female Patient was last seen September of last year, she had a follow-up appointment in October which she no showed She developed diarrhea for the past few days but now it has subsided Patient is having difficulty with ambulation, at home she is using walker She is requesting physical therapy at home which I have ordered for She has a history of recurrent falls Patient has hypertension blood pressure continued to be high she is seeing Nephrology Last visit was February of this year her blood pressure was high at that time as well all blood pressure medications through Nephrology office She is also on Lipitor 40 mg for lipid control She is diabetic and is on glipizide 5 mg and metformin 1 g daily Other medications are omeprazole and bladder medication for overactive bladder. She have a history of stroke in the past 7 years ago History of mediastinal mass which patient continued to decline the workup when the treatment for, Last year in emergency room she had imaging done which showed, Left anterior mediastinal mass has been change in size and is now measuring 8.6 x 5.4 cm compared to approximately 5.3 x 4.2 cm on September of 2020 Anxiety: Patient take alprazolam as needed, refill sent Medication list reviewed [facility] Medical History CVA (cerebral vascular accident) Iron deficiency Low hemoglobin Constipation by delayed colonic transit Gastroparesis Bladder disorder Anxiety, generalized Hypertension, essential Diabetes 1.5, managed as type 2 Surgical History No pertinent past surgical history Family History Father No problems noted. Mother No problems noted. Brother Diabetes Sister Diabetes Social History Household Members: Children Housing: House Are you a primary healthcare financial analyst to a significant other at home: No Do you presently have visiting nurse or other home services: Yes (physical therapy) Alcohol intake: never Patient Tobacco Use Status: Never used Tobacco e-Cigarette/Vaping Use: Never Used service: No Current occupational status: retired Cognitive needs: No Hearing needs: No Vision needs: Yes Questionnaire Thrive Questionnaire Date Thrive assessed: 06/30/22 AUDIT C Alcohol Use Questionnaire (AUDIT-C) 1. How often do you have a drink containing alcohol?: Never 3. How often do you have six or more drinks on one occasion?: Never Total Score: 0 Score Reviewed/Action Taken: Yes Review of Systems Const Denies chills and Denies fever(s) ENT Denies epistaxis and Denies nasal discharge Card Denies chest pain Resp Denies chest congestion, Denies cough and Denies hemoptysis Skin/Breast Denies rash Neuro Reports no additional complaints Psych Reports no additional complaints Endo Reports no additional complaints Physical exam (Primary Care) Vital Signs: Last Vital Signs Pulse 86 07/20/23 12:09 BP 164/78 H 07/20/23 12:09 Pulse Ox 94 07/20/23 12:09 Oxygen Delivery Method Room Air 07/20/23 12:09 Tobacco/Smoking Status: Tobacco use Status Tobacco use date assessed 07/20/23 07/20/23 12:19 Patient Tobacco Use Status Never used Tobacco 07/20/23 12:19 e-Cigarette/Vaping Use Never Used 07/20/23 12:19 Thrive Assessment: Date of Thrive Assessment Date Thrive assessed 06/30/22 07/20/23 12:19 Const General: cooperative, comfortable and no acute distress Orientation/consciousness: patient oriented x3 HENMT Head: Yes normocephalic Eyes General: appearance normal, both eyes and all related structures Neck Neck: Yes supple Resp Effort & Inspection: normal respiratory effort, no cough and no stridor Cardio Rhythm: regular rhythm Heart sounds: S1 normal heart sound present and S2 normal heart sound present Skin General skin exam: turgor normal Neuro Other: Wheelchair dependent left hand weaker than right lower extremity strand 4 x 4 left leg 4 x 4 right leg General: patient oriented x3, tone normal and moves all extremities Extrem Right lower extremity: no edema Left lower extremity: no edema Assessment and Plan Assessment & Plan (1) Uncontrolled hypertension: Code(s): I10 - Essential (primary) hypertension (2) Recurrent falls: Code(s): R29.6 - Repeated falls (3) Diabetes 1.5, managed as type 2: Code(s): E13.9 - Other specified diabetes mellitus without complications (4) Anxiety, generalized: Code(s): F41.1 - Generalized anxiety disorder (5) Bladder disorder: Code(s): N32.9 - Bladder disorder, unspecified (6) Gastroparesis: Code(s): K31.84 - Gastroparesis (7) Low hemoglobin: Code(s): D64.9 - Anemia, unspecified (8) Microcytic hypochromic anemia: Code(s): D50.9 - Iron deficiency anemia, unspecified (9) Vitamin B12 deficiency: Comment: Vitamin B 12 Deficiency can be due to atrophic gastritis or celiac sprue. Of note celiac ab panel was negative 2 years ago. Code(s): E53.8 - Deficiency of other specified B group vitamins (10) Difficulty walking: Code(s): R26.2 - Difficulty in walking, not elsewhere classified (11) Weakness: Code(s): R53.1 - Weakness (12) Obesity due to excess calories: Code(s): E66.09 - Other obesity due to excess calories Qualifiers: Body mass index: BMI 30.0-30.9 Obesity classification: adult class 1 (BMI 30 - 34.9) Serious obesity comorbidity presence: with serious comorbidity Qualified Code(s): E66.09 - Other obesity due to excess calories; Z68.30 - Body mass index [BMI] 30.0-30.9, adult (13) Mediastinal mass: Code(s): J98.59 - Other diseases of mediastinum, not elsewhere classified (14) Recurrent strokes: Code(s): I63.9 - Cerebral infarction, unspecified (15) Frail elderly: Code(s): R54 - Age-related physical debility (16) Wheelchair dependence: Code(s): Z99.3 - Dependence on wheelchair Plan Patient is 83-year-old female Patient was last seen September of last year, she had a follow-up appointment in October which she no showed She developed diarrhea for the past few days but now it has subsided Patient is having difficulty with ambulation, at home she is using walker She is requesting physical therapy at home which I have ordered for She has a history of recurrent falls Patient has hypertension blood pressure continued to be high she is seeing Nephrology Last visit was February of this year her blood pressure was high at that time as well all blood pressure medications through Nephrology office She is also on Lipitor 40 mg for lipid control She is diabetic and is on glipizide 5 mg and metformin 1 g daily Other medications are omeprazole and bladder medication for overactive bladder. She have a history of stroke in the past 7 years ago History of mediastinal mass which patient continued to decline the workup when the treatment for, Last year in emergency room she had imaging done which showed, Left anterior mediastinal mass has been change in size and is now measuring 8.6 x 5.4 cm compared to approximately 5.3 x 4.2 cm on September of 2020 Anxiety: Patient take alprazolam as needed, refill sent Medication list reviewed 60 minute spent in care of this patient including [id number] with the patient and family member Coordination of care, charting, reviewing notes Orders: Orders Comprehensive Met. Panel Today D50.9 - Iron deficiency anemia, unspecified, D64.9 - Anemia, unspecified, E13.9 - Other specified diabetes mellitus without complications, E53.8 - Deficiency of other specified B group vitamins, E66.09 - Other obesity due to excess calories, F41.1 - Generalized anxiety disorder, I10 - Essential (primary) hypertension, I63.9 - Cerebral infarction, unspecified, J98.59 - Other diseases of mediastinum, not elsewhere classified, K31.84 - Gastroparesis, K59.01 - Slow transit constipation, N32.9 - Bladder disorder, unspecified, R26.2 - Difficulty in walking, not elsewhere classified, R53.1 - Weakness, R54 - Age-related physical debility, R79.89 - Other specified abnormal findings of blood chemistry, Z99.3 - Dependence on wheelchair Microalbumin, Random (w Creat) Today D50.9 - Iron deficiency anemia, unspecified, D64.9 - Anemia, unspecified, E13.9 - Other specified diabetes mellitus without complications, E53.8 - Deficiency of other specified B group vitamins, E66.09 - Other obesity due to excess calories, F41.1 - Generalized anxiety disorder, I10 - Essential (primary) hypertension, I63.9 - Cerebral infarction, unspecified, J98.59 - Other diseases of mediastinum, not elsewhere classified, K31.84 - Gastroparesis, K59.01 - Slow transit constipation, N32.9 - Bladder disorder, unspecified, R26.2 - Difficulty in walking, not elsewhere classified, R53.1 - Weakness, R54 - Age-related physical debility, R79.89 - Other specified abnormal findings of blood chemistry, Z99.3 - Dependence on wheelchair LDL Cholesterol Direct Today D50.9 - Iron deficiency anemia, unspecified, D64.9 - Anemia, unspecified, E13.9 - Other specified diabetes mellitus without complications, E53.8 - Deficiency of other specified B group vitamins, E66.09 - Other obesity due to excess calories, F41.1 - Generalized anxiety disorder, I10 - Essential (primary) hypertension, I63.9 - Cerebral infarction, unspecified, J98.59 - Other diseases of mediastinum, not elsewhere classified, K31.84 - Gastroparesis, K59.01 - Slow transit constipation, N32.9 - Bladder disorder, unspecified, R26.2 - Difficulty in walking, not elsewhere classified, R53.1 - Weakness, R54 - Age-related physical debility, R79.89 - Other specified abnormal findings of blood chemistry, Z99.3 - Dependence on wheelchair Vitamin B12 Today D50.9 - Iron deficiency anemia, unspecified, D64.9 - Anemia, unspecified, E13.9 - Other specified diabetes mellitus without complications, E53.8 - Deficiency of other specified B group vitamins, E66.09 - Other obesity due to excess calories, F41.1 - Generalized anxiety disorder, I10 - Essential (primary) hypertension, I63.9 - Cerebral infarction, unspecified, J98.59 - Other diseases of mediastinum, not elsewhere classified, K31.84 - Gastroparesis, K59.01 - Slow transit constipation, N32.9 - Bladder disorder, unspecified, R26.2 - Difficulty in walking, not elsewhere classified, R53.1 - Weakness, R54 - Age-related physical debility, R79.89 - Other specified abnormal findings of blood chemistry, Z99.3 - Dependence on wheelchair Complete Blood Count Auto Diff Today D50.9 - Iron deficiency anemia, unspecified, D64.9 - Anemia, unspecified, E13.9 - Other specified diabetes mellitus without complications, E53.8 - Deficiency of other specified B group vitamins, E66.09 - Other obesity due to excess calories, F41.1 - Generalized anxiety disorder, I10 - Essential (primary) hypertension, I63.9 - Cerebral infarction, unspecified, J98.59 - Other diseases of mediastinum, not elsewhere classified, K31.84 - Gastroparesis, K59.01 - Slow transit constipation, N32.9 - Bladder disorder, unspecified, R26.2 - Difficulty in walking, not elsewhere classified, R53.1 - Weakness, R54 - Age-related physical debility, R79.89 - Other specified abnormal findings of blood chemistry, Z99.3 - Dependence on wheelchair Hemoglobin A1c Today D50.9 - Iron deficiency anemia, unspecified, D64.9 - Anemia, unspecified, E13.9 - Other specified diabetes mellitus without complications, E53.8 - Deficiency of other specified B group vitamins, E66.09 - Other obesity due to excess calories, F41.1 - Generalized anxiety disorder, I10 - Essential (primary) hypertension, I63.9 - Cerebral infarction, unspecified, J98.59 - Other diseases of mediastinum, not elsewhere classified, K31.84 - Gastroparesis, K59.01 - Slow transit constipation, N32.9 - Bladder disorder, unspecified, R26.2 - Difficulty in walking, not elsewhere classified, R53.1 - Weakness, R54 - Age-related physical debility, R79.89 - Other specified abnormal findings of blood chemistry, Z99.3 - Dependence on wheelchair TSH reflex Free T4 Today D50.9 - Iron deficiency anemia, unspecified, D64.9 - Anemia, unspecified, E13.9 - Other specified diabetes mellitus without complications, E53.8 - Deficiency of other specified B group vitamins, E66.09 - Other obesity due to excess calories, F41.1 - Generalized anxiety disorder, I10 - Essential (primary) hypertension, I63.9 - Cerebral infarction, unspecified, J98.59 - Other diseases of mediastinum, not elsewhere classified, K31.84 - Gastroparesis, K59.01 - Slow transit constipation, N32.9 - Bladder disorder, unspecified, R26.2 - Difficulty in walking, not elsewhere classified, R53.1 - Weakness, R54 - Age-related physical debility, R79.89 - Other specified abnormal findings of blood chemistry, Z99.3 - Dependence on wheelchair Vitamin D 25-OH (D2 and D3) Today D50.9 - Iron deficiency anemia, unspecified, D64.9 - Anemia, unspecified, E13.9 - Other specified diabetes mellitus without complications, E53.8 - Deficiency of other specified B group vitamins, E66.09 - Other obesity due to excess calories, F41.1 - Generalized anxiety disorder, I10 - Essential (primary) hypertension, I63.9 - Cerebral infarction, unspecified, J98.59 - Other diseases of mediastinum, not elsewhere classified, K31.84 - Gastroparesis, K59.01 - Slow transit constipation, N32.9 - Bladder disorder, unspecified, R26.2 - Difficulty in walking, not elsewhere classified, R53.1 - Weakness, R54 - Age-related physical debility, R79.89 - Other specified abnormal findings of blood chemistry, Z99.3 - Dependence on wheelchair [facility]errals [facility] Referral I63.9 - Cerebral infarction, unspecified, 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, unspecified knee, R26.2 - Difficulty in walking, not elsewhere classified, R54 - Age-related physical debility, Z99.3 - Dependence on wheelchair Medications: Changed From simethicone (Gas Relief (simethicone)) 0.6 mL PO QID 90 days PRN 30 mL 3RF Gas To simethicone 0.6 mL PO QID PRN 30 mL 3RF Gas 90 days Refilled alprazolam 0.25 mg PO ONCE PRN 30 tabs 2RF anxiety 30 days F41.1 - Generalized anxiety disorder cyanocobalamin (vitamin B-12) 1,000 mcg PO DAILY 90 tabs 3RF 90 days aspirin (Adult Aspirin Regimen) 81 mg PO DAILY 90 tabs 3RF 90 days cholecalciferol (vitamin D3) 25 mcg PO DAILY 90 caps 3RF glipizide 5 mg PO BID 180 tabs 3RF Diabetes 90 days metformin 1,000 mg PO BID 180 tabs 1RF Diabetes 90 days metoclopramide HCl 5 mg PO ONCE PRN 90 tabs 3RF for nausea/vomiting omeprazole 20 mg PO DAILY 90 caps 3RF Epigastric pain/dyspepsia sennosides (Natural Senna Laxative) take 1-2 tablets by mouth every night at bedtimes PRN for constipation 8.6 mg PO BEDTIME 90 tabs 3RF Coding Level of Care Code Est Pt Level 5 (64167) Diagnoses Uncontrolled hypertension I10 Recurrent falls R29.6 Diabetes 1.5, managed as type 2 E13.9 Anxiety, generalized F41.1 Bladder disorder N32.9 Gastroparesis K31.84 Low hemoglobin D64.9 Microcytic hypochromic anemia D50.9 Vitamin B12 deficiency E53.8 Difficulty walking R26.2 Weakness R53.1 Class 1 obesity due to excess calories with serious comorbidity and body mass index (BMI) of 30.0 to 30.9 in adult E66.09; Z68.30 Body mass index: BMI 30.0-30.9 Obesity classification: adult class 1 (BMI 30 - 34.9) Serious obesity comorbidity presence: with serious comorbidity Mediastinal mass J98.59 Recurrent strokes I63.9 Frail elderly R54 Wheelchair dependence Z99.3
== END 2023-07-20 12:41 | disposition home or self-care (01) ==
PROVIDERS: PCP Internal Medicine; Visit Provider Internal Medicine
DX: I10 Essential (primary) hypertension (principal); E13.9 Other specified diabetes mellitus without complications; Z86.73 Personal history of transient ischemic attack (TIA), and cerebral infarction without residual deficits; R29.6 Repeated falls; F41.1 Generalized anxiety disorder; N32.9 Bladder disorder, unspecified; K31.84 Gastroparesis; D64.9 Anemia, unspecified; D50.9 Iron deficiency anemia, unspecified; E53.8 Deficiency of other specified B group vitamins; R26.2 Difficulty in walking, not elsewhere classified; Z99.3 Dependence on wheelchair
CPT/HCPCS: 99215; 99417

== ENCOUNTER 2023-07-20 12:36 | Outpatient (REF) | payer MEDICAID, SELFPAY ==
[2023-07-20 16:21] LABS: MANUAL DIFF FLAG NO
[2023-07-20 18:03] LABS: Basophils Absolute Auto 0.1 X10*3/uL (0.0-0.2); Basophils Percent Auto 0.7 % (0-2); Eosinophils Absolute Auto 0.1 X10*3/uL (0.0-0.4); Eosinophils Percent Auto 1.4 % (0-4); Hematocrit 32.7 % (37.0-47.0); Hemoglobin 10.2 g/dl (12.0-16.0); Imm Gran Abs Auto 0.01 X10*3/uL (0.00-0.03); Imm Gran Pct Auto 0.1 % (0.0-0.4); Lymphocytes Absolute Auto 2.2 X10*3/uL (1.2-4.9); Mean Corpuscular HGB Conc 31.2 g/dl (31.0-35.0); Mean Corpuscular Hemoglobin 24.2 pg (27.0-33.0); Mean Corpuscular Volume 77.5 fL (80.0-98.0); Mean Platelet Volume 10.1 fL (9.4-12.3); Monocytes Absolute Auto 0.6 X10*3/uL (0.1-1.2); Monocytes Percent Auto 7.8 % (2-11); Neutrophils Absolute Auto 4.3 x10*3/uL (2.0-8.3); Platelet Count 491 X10*3/uL (160-400); Red Blood Count 4.22 X10*6/uL (4.20-5.50); Red Cell Distribution Width 16.6 % (11.0-16.0); White Blood Count 7.2 X10*3/uL (4.8-10.8)
[2023-07-20 18:55] LABS: Estimated Average Glucose 140 mg/dL; Hemoglobin A1c % 6.5 % (<6.0)
[2023-07-20 18:56] LABS: Creatinine Urine 24.18 mg/dL; Microalbum/Creatinine Ratio Ur 264.6 ug/mg cr (<30)
[2023-07-20 19:06] LABS: Alanine Aminotransferase 9 U/L (0-31); Albumin Level 3.7 g/dL (3.5-5.0); Alkaline Phosphatase 60 U/L (39-117); Anion Gap 20 (12-20); Aspartate Amino Transferase 11 U/L (5-31); Bilirubin Total 0.8 mg/dL (0.0-1.0); Blood Urea Nitrogen 10 mg/dL (9-16); Calcium 9.9 mg/dL (8.4-10.2); Carbon Dioxide 22 mmol/L (22-29); Chloride 96 mmol/L (96-108); Estimated Glomerular Filt Rate > 60; Glucose Random 242 mg/dL (60-115); Potassium 3.8 mmol/L (3.3-5.1); Sodium 134 mmol/L (135-145); Total Protein 7.8 g/dL (6.5-8.0)
[2023-07-20 19:12] LABS: TSH reflex Free T4 1.17 uIU/mL (0.32-4.0)
[2023-07-20 19:26] LABS: Vitamin B12 > 2000 pg/mL (200-900)
[2023-07-21 14:24] LABS: LDL Cholesterol Direct 131 mg/dL (<100)
[2023-07-24 16:09] LABS: Vitamin D 25-OH, D2 <4 ng/mL; Vitamin D 25-OH, D3 47 ng/mL; Vitamin D 25-OH, Total 47 ng/mL (30-100)
== END 2023-07-20 12:37 | disposition home or self-care (01) ==
LOC: HO.HMGCLDS 12:36
PROVIDERS: PCP Internal Medicine; Visit Provider Internal Medicine
DX: E13.9 Other specified diabetes mellitus without complications (principal); I10 Essential (primary) hypertension; F41.1 Generalized anxiety disorder; N32.9 Bladder disorder, unspecified; K31.84 Gastroparesis; K59.01 Slow transit constipation; D64.9 Anemia, unspecified; D50.9 Iron deficiency anemia, unspecified; R79.89 Other specified abnormal findings of blood chemistry; E53.8 Deficiency of other specified B group vitamins; R26.2 Difficulty in walking, not elsewhere classified; R53.1 Weakness; E66.09 Other obesity due to excess calories; J98.59 Other diseases of mediastinum, not elsewhere classified; I63.9 Cerebral infarction, unspecified; Z99.3 Dependence on wheelchair
CPT/HCPCS: 36415; 80053; 82043; 82306; 82570; 82607; 83036; 83721; 84443; 85025

== ENCOUNTER 2023-07-28 07:35 | Outpatient (AMB) | payer MEDICAID, SELFPAY ==
--- NOTE | 2023-07-28 08:58 | MHC.PC.OV ---
Intake Visit Reasons: Discuss Results~ [phone] Allergies simvastatin Allergy (Unknown, Verified 07/28/23 08:59) shortness of breath Medication List - Last Reconciled 07/28/23 by Josse Robles MD alprazolam 0.25 mg PO ONCE PRN 30 days aspirin (Adult Aspirin Regimen) 81 mg PO DAILY 90 days atenolol 50 mg PO BID blood sugar diagnostic (FreeStyle Lite Strips) Use to test blood sugar twice daily. cholecalciferol (vitamin D3) 25 mcg PO DAILY clonidine HCl 0.2 mg PO BEDTIME 90 days commode 3-in-1 commode chair cyanocobalamin (vitamin B-12) 1,000 mcg PO DAILY 90 days diltiazem HCl CD 180 mg PO DAILY docusate sodium (DOK) 100 mg PO DAILY PRN 90 days escitalopram oxalate 10 mg PO DAILY PRN glipizide 5 mg PO BID 90 days hydrochlorothiazide 12.5 mg PO DAILY losartan 50 mg PO BID metformin 1,000 mg PO BID 90 days metoclopramide HCl 5 mg PO ONCE PRN omeprazole 20 mg PO DAILY polyethylene glycol 3350 (Miralax) 17 grams PO DAILY sennosides (Natural Senna Laxative) 8.6 mg PO BEDTIME simethicone 0.6 mL PO QID PRN 90 days [tub transfer bench As directed] Tobacco use date assessed: 07/28/23 Fall risk assessment: No Falls in past year Last assessed Fall Risk: 07/28/23 Dental Screening Dental Screen Date: 07/28/23 Did you have a dental visit in the last 12 months?: No Did you have a dental problem in the last 6 months where you did not have access to dental care?: No Was dental information given to patient?: No HPI Discuss Results~ [phone] HPI Details This is a telemedicine visit to go over lab report Patient had hemoglobin of 11.4 last year at this time and now it is 10.2 With microcytic indices, patient says that she has difficulty tolerating iron supplement as it causes bloating sensation I have told family to get [id number] iron drops that we give it to pediatric patients and see if she can tolerate that. B12 level came back very high, we will need to hold B12 vitamin for now. Patient is diabetic as well, hemoglobin A1c is 6.5 Kidney functions are intact liver functions are intact. PFSH Medical History CVA (cerebral vascular accident) Iron deficiency Low hemoglobin Constipation by delayed colonic transit Gastroparesis Bladder disorder Anxiety, generalized Hypertension, essential Diabetes 1.5, managed as type 2 Surgical History No pertinent past surgical history Family History Father No problems noted. Mother No problems noted. Brother Diabetes Sister Diabetes Social History Household Members: Children Housing: House Are you a primary child care centre manager to a significant other at home: No Do you presently have visiting nurse or other home services: Yes (physical therapy) Alcohol intake: never Patient Tobacco Use Status: Never used Tobacco e-Cigarette/Vaping Use: Never Used service: No Current occupational status: retired Cognitive needs: No Hearing needs: No Vision needs: Yes Questionnaire Thrive Questionnaire Date Thrive assessed: 06/30/22 AUDIT C Alcohol Use Questionnaire (AUDIT-C) 1. How often do you have a drink containing alcohol?: Never 3. How often do you have six or more drinks on one occasion?: Never Total Score: 0 Score Reviewed/Action Taken: Yes Review of Systems Const Denies chills and Denies fever(s) ENT Denies epistaxis and Denies nasal discharge Card Denies chest pain Resp Denies chest congestion, Denies cough and Denies hemoptysis GI Denies diarrhea Skin/Breast Denies rash Neuro Reports no additional complaints Psych Reports no additional complaints Endo Reports no additional complaints Physical exam (Primary Care) Tobacco/Smoking Status: Tobacco use Status Tobacco use date assessed 07/28/23 07/28/23 08:59 Patient Tobacco Use Status Never used Tobacco 07/28/23 08:59 e-Cigarette/Vaping Use Never Used 07/28/23 08:59 Thrive Assessment: Date of Thrive Assessment Date Thrive assessed 06/30/22 07/28/23 08:59 Telehealth Telehealth Telehealth Platform: [facility] Location of provider rendering services: practice address Location of patient: address on file Patient Identification confirmed using: Name, : Yes Telehealth method: voice only Patient verbally consented to treatment: Yes Patient verbally consented to billing insurance company: Yes Patient informed of any privacy concerns related to visit: Yes Minutes spent on Phone/Video with Pt.: 13 Assessment and Plan Assessment & Plan (1) Iron deficiency: Comment: Taking ferrous sulfate once daily Code(s): E61.1 - Iron deficiency (2) Low hemoglobin: Code(s): D64.9 - Anemia, unspecified (3) Diabetes 1.5, managed as type 2: Code(s): E13.9 - Other specified diabetes mellitus without complications Plan This is a telemedicine visit to go over lab report Patient had hemoglobin of 11.4 last year at this time and now it is 10.2 With microcytic indices, patient says that she has difficulty tolerating iron supplement as it causes bloating sensation I have told family to get [id number]-axygvee iron drops that we give it to pediatric patients and see if she can tolerate that. B12 level came back very high, we will need to hold B12 vitamin for now. Patient is diabetic as well, hemoglobin A1c is 6.5 Kidney functions are intact liver functions are intact. Orders: Orders Complete Blood Count Auto Diff 2 Months D64.9 - Anemia, unspecified, E13.9 - Other specified diabetes mellitus without complications, E61.1 - Iron deficiency Ferritin 2 Months D64.9 - Anemia, unspecified, E13.9 - Other specified diabetes mellitus without complications, E61.1 - Iron deficiency Vitamin B12 2 Months D64.9 - Anemia, unspecified, E13.9 - Other specified diabetes mellitus without complications, E61.1 - Iron deficiency Comprehensive Met. Panel 2 Months D64.9 - Anemia, unspecified, E13.9 - Other specified diabetes mellitus without complications, E61.1 - Iron deficiency Medications: On Hold cyanocobalamin (vitamin B-12) Hold Comment: Doctor's Order 1,000 mcg PO DAILY 90 days 90 tabs 3RF Coding Level of Care Code Tele Est Pt Level 3 (68761) Diagnoses Iron deficiency E61.1 Low hemoglobin D64.9 Diabetes 1.5, managed as type 2 E13.9
== END 2023-07-28 10:40 | disposition home or self-care (01) ==
PROVIDERS: PCP Internal Medicine; Visit Provider Internal Medicine
DX: E61.1 Iron deficiency (principal); D64.9 Anemia, unspecified; E13.9 Other specified diabetes mellitus without complications
CPT/HCPCS: 99213

== ENCOUNTER 2023-10-20 13:59 | Outpatient (AMB) | payer MEDICAID, SELFPAY ==
[2023-10-20 14:02] VITALS: BMI 26.4
--- NOTE | 2023-10-20 14:02 | HO.NEPHOV ---
Vital Signs 10/20/23 14:02 Height 5 ft Weight 135 lb BMI 26.4 Intake Visit Reasons: HTN 6 mo fu/ Conf Radiosonde Operator Required: Yes Radiosonde Operator Name: Son is shoshana Bob Accompanied by: Son Allergies simvastatin Allergy (Unknown, Verified 10/20/23 14:03) shortness of breath Medication List - Last Reconciled 10/20/23 by Darius Alexander MD alprazolam 0.25 mg PO ONCE PRN 30 days aspirin (Adult Aspirin Regimen) 81 mg PO DAILY 90 days atenolol 50 mg PO BID [bed rails as ordered As directed] blood sugar diagnostic (FreeStyle Lite Strips) Use to test blood sugar twice daily. cholecalciferol (vitamin D3) 25 mcg PO DAILY clonidine HCl 0.1 mg PO BID commode (bedside commode) Extra large bedside commode use As directed commode 3-in-1 commode chair cyanocobalamin (vitamin B-12) 1,000 mcg PO DAILY 90 days diaper,brief,adult,disposable (Select Disposable Briefs) Uses 3 per day As directed, Extra Large diltiazem HCl CD 180 mg PO DAILY [Disposable bed pads-uses 3/day As directed] [disposable body wipes Use As directed] disposable gloves Use As directed docusate sodium (DOK) 100 mg PO DAILY PRN 90 days escitalopram oxalate 10 mg PO DAILY PRN ezetimibe 10 mg PO DAILY glipizide 5 mg PO BID 90 days hydrochlorothiazide 12.5 mg PO DAILY losartan 50 mg PO BID metformin 1,000 mg PO BID 90 days metoclopramide HCl 5 mg PO DAILY omeprazole 20 mg PO DAILY polyethylene glycol 3350 (Miralax) 17 grams PO DAILY sennosides (Natural Senna Laxative) 8.6 mg PO BEDTIME simethicone 0.6 mL PO QID PRN 90 days [standard wheelchair-extra Lg Use As directed] [tub transfer bench As directed] HPI Comments Details: 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 She probably had a TIA. During workup she was found to have a mediastinal mass. According to her son she has had this mass for almost 10-15 years however the recent scan shows an increase in the size. The mediastinal mass measures about 9 cm. The family does not want to proceed with any further workup. 10/20/2023. Recently had a stroke. Antihypertensive medication has been readjusted. Spoke to her son in detail [facility] Medical History CVA (cerebral vascular accident) Iron deficiency Low hemoglobin Constipation by delayed colonic transit Gastroparesis Bladder disorder Anxiety, generalized Hypertension, essential Diabetes 1.5, managed as type 2 Surgical History No pertinent past surgical history Family History Father No problems noted. Mother No problems noted. Brother Diabetes Sister Diabetes Social History Household Members: Children Housing: House Are you a primary pharmacy care coordinator to a significant other at home: No Do you presently have visiting nurse or other home services: Yes (physical therapy) Alcohol intake: never Patient Tobacco Use Status: Never used Tobacco e-Cigarette/Vaping Use: Never Used service: No Current occupational status: retired Cognitive needs: No Hearing needs: No Vision needs: Yes Physical Exam Vital Signs: BMI result Body Mass Index 26.4 Telehealth Telehealth Telehealth Platform: Telephone Telehealth method: voice only Patient verbally consented to billing insurance company: Yes Patient informed of any privacy concerns related to visit: Yes Minutes spent on Phone/Video with Pt.: 15 Results Reviewed Nephrology Results: Hgb 10.2 g/dl (12.0-16.0) L 07/20/23 WBC 7.2 X10*3/uL (4.8-10.8) 07/20/23 Plt Count 491 X10*3/uL (160-400) H 07/20/23 Sodium 134 mmol/L (135-145) L 07/20/23 Potassium 3.8 mmol/L (3.3-5.1) 07/20/23 Chloride 96 mmol/L (96-108) 07/20/23 Carbon Dioxide 22 mmol/L (22-29) 07/20/23 BUN 10 mg/dL (9-16) 07/20/23 Creatinine 0.64 mg/dL (0.5-1.4) 07/20/23 Calcium 9.9 mg/dL (8.4-10.2) 07/20/23 Urine Protein Negative mg/dL (Neg-Trace) 06/30/22 Urine Creatinine 24.18 mg/dL 07/20/23 Assessment & Plan Assessment & Plan (1) Uncontrolled hypertension: Code(s): I10 - Essential (primary) hypertension Category: Medical (2) Hypertension, essential: Code(s): I10 - Essential (primary) hypertension Category: Medical Plan Elderly woman with resistant hypertension. Recent CVA. We will keep her on current regimen. Avoid hypotensive episodes. For now I would be happy to maintain systolic blood pressure between 130 and 150 mm Hg. Coding Level of Care Code Tele Est Pt Level 3 (24919) Diagnoses Uncontrolled hypertension I10 Hypertension, essential I10
== END 2023-10-20 14:53 | disposition home or self-care (01) ==
LOC: HO.HKA 13:59
PROVIDERS: PCP Internal Medicine; Visit Provider Internal Medicine Hypertension Specialist
DX: I10 Essential (primary) hypertension (principal)
CPT/HCPCS: 99213

== ENCOUNTER → 2023-10-20 13:59 | Outpatient (BNVA) | payer MEDICAID, SELFPAY | PROVIDERS: PCP Internal Medicine; Visit Provider Internal Medicine Hypertension Specialist ==

== ENCOUNTER → 2023-10-27 14:37 | Outpatient (RCR) | payer MEDICAID, SELFPAY ==
--- NOTE | 2020-07-08 | ECG_ITS ---
Test Reason : PALPITATIONS Blood Pressure : / mmHG Vent. Rate : 081 BPM Atrial Rate : 081 BPM P-R Int : 204 ms QRS Dur : 098 ms QT Int : 390 ms P-R-T Axes : -02 010 051 degrees QTc Int : 453 ms Normal sinus rhythm Normal ECG When compared with ECG of 09-JUL-2013 14:31, No significant change was found Referred By: Lai Voss Electronically Signed By:Humphrey Carcamo
[2020-07-08 10:09] VITALS: BP 159/74; PULSE 86; RESP 12; TEMP 36.4; O2SAT 96; BMI 28.5
--- NOTE | 2020-07-08 10:23 | PM.HEMONCCN ---
Subjective - Subjective Chief complaint: Consultation for microcytic anemia. Patient: new to practice Consult date: 07/08/20 Requesting Physician: Travsi. Primary Care Provider: Josse Robles MD Medical Summary: DIAGNOSIS: MICROCYTIC ANEMIA. HPI - Consult Narrative Reason for consult: Consult for: Microcytic anemia. Narrative: Bimal Bower is a pleasant 80 year old lady, who has been noted to be anemic. Her CBC from 06/11/2020: WBC 8.9, HGB 9.8, HCT 31.9, MCV 77, PLT 498. Her ferritin was: 4. B12 987. Folate 14.2. ROS: Lately she has been very fatigued and weak. She denies fever nor chills. Appetite is not that good. She has lost weight. She complains of headaches but no dizziness. She complains of palpitations if she walks a distance she gets short of breath. She complains of swelling of her abdomen with gas. She denies heartburn but does get nauseous at times. She gets these episodes where she develops palpitations. Subsequently she has a lot of belching. She gets GI upset. She denies diarrhea. She gets constipated on occasion. She denies any gross blood in the stools. Sometimes the urine is difficult to pass in the morning. She has bilateral knee pain. She had a stroke 5 years ago. She still has residual left-sided weakness. She still has difficulty with swallowing. Sometimes she coughs at night. Sometimes she gets choked on her food. She does feel rather depressed. Denies rashes nor pruritus. Family history: This no known family history of a blood disorder nor cancer. Social history: She does not work. 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 She had 7 children. Four girls 3 boys. She denies smoking nor alcohol use. Review of Systems - Constitutional Reports no additional constitutional complaints, Reports lack of energy, Reports weight loss - Eyes Reports no additional eye complaints - ENT Reports no additional ear, nose, mouth, and throat complaints - Cardiovascular Reports no additional cardiovascular complaints, Reports shortness of breath Comments: Palpitations. - Respiratory Reports no additional respiratory complaints - Gastrointestinal Reports no additional gastrointestinal complaints, Reports belching, Reports bloating, Reports change in bowel habits, Reports constipation, Reports nausea - Genitourinary Reports no additional female genitourinary complaints - Musculoskeletal Reports no additional musculoskeletal complaints, Reports joint pain - Integumentary/Breasts Skin/Breast: Reports no additional skin complaints - Neurologic Reports no additional neurologic complaints, Reports weakness Comments: Left leg weakness. Intermittent Dysphagia. - Psychiatric Reports no additional psychiatric complaints - Endocrine Reports no additional endocrine complaints - Hematologic/Lymphatic Reports no additional hematologic/lymphatic complaints - Allergic/Immunologic Reports no additional allergic/immunologic complaints [facility] Medical History: Medical History (Last Reviewed 07/08/20 @ 10:14 by Jyoti Byrd) Anxiety, generalized Bladder disorder Constipation by delayed colonic transit CVA (cerebral vascular accident) Diabetes 1.5, managed as type 2 Gastroparesis Hypertension, essential Iron deficiency Low hemoglobin Family History: Family History (Last Updated 07/08/20 @ 10:15 by Jyoti Byrd) Father No problems noted. Mother No problems noted. Brother Diabetes Sister Diabetes Surgical History: Surgical History (Last Reviewed 07/08/20 @ 10:14 by Jyoti Byrd) No pertinent past surgical history Social History: Social History (Last Updated 07/08/20 @ 10:16 by Jyoti Byrd) Living Situation History: Household Members: Children Housing: House Are you a primary care connector to a significant other at home: No Do you presently have visiting nurse or other home services: Yes Do you presently have visiting nurse or other home services comment: physical therapy Alcohol History: Alcohol intake: never Alcohol History Details: Alcohol intake frequency: does not drink Tobacco History: Smoking Status: Never smoker Smoking status: Never smoker Home Medications and Allergies Home Medications Medication Instructions Recorded Confirmed Type acetaminophen 650 mg 650 mg PO ONCE tab 01/02/20 07/08/20 History tablet,extended release amlodipine 10 mg tablet 10 mg PO DAILY 01/02/20 07/08/20 History atenolol 50 mg tablet 50 mg PO BID 01/02/20 07/08/20 History ferrous sulfate 325 mg (65 mg 325 mg PO DAILY 01/02/20 07/08/20 History iron) tablet glipizide 5 mg tablet 5 mg PO BID 01/02/20 07/08/20 History losartan 50 mg tablet 50 mg PO BID 01/02/20 07/08/20 History omeprazole 20 mg capsule,delayed 20 mg PO DAILY 01/02/20 07/08/20 History release ondansetron HCl 8 mg tablet 8 mg PO DAILY tab 01/02/20 07/08/20 History polyethylene glycol 3350 17 gram 17 g PO DAILY 01/02/20 07/08/20 History oral powder packet sennosides 8.6 mg tablet 8.6 mg PO BEDTIME 01/02/20 07/08/20 History simethicone 40 mg/0.6 mL oral 0.6 ml PO QID PRN ml 01/02/20 07/08/20 History drops,suspension tolterodine 2 mg capsule,extended 2 mg PO DAILY 01/02/20 07/08/20 History release 24 hr Allergies Allergy/AdvReac Type Severity Reaction Status Date / Time simvastatin Allergy Unknown shortness Verified 07/07/20 10:47 of breath Physical Exam Vital signs: Vital Signs Temp 97.6 F 07/08/20 10:09 Pulse 86 07/08/20 10:09 Resp 12 07/08/20 10:09 BP 159/74 H 07/08/20 10:09 Pulse Ox 96 07/08/20 10:09 Intake & Output 07/07/20 07/08/20 07/08/20 18:59 06:59 18:59 Other: Weight 66.3 kg [place] Weight in Grams 93848 Weight 66.3 kg Hem/Onc Consult Result - Labs CBC & Chem 7: 07/08/20 10:53 07/08/20 10:53 Assessment and Plan (1) Microcytic hypochromic anemia Status: Acute CMP: LFTs: 0.9//12/10. Coleman 10.1. Alb 3.9 This is a pleasant 80-year-old lady with a previous history of stroke. Lately she has been noted to be rather Anemic. Iron studies from today: 85/4 for . She has tried oral iron however she is not able to tolerated. She gets GI affect nausea and can not digest it. DIFFERENTIAL DIAGNOSIS: 1. IRON DEFICIENCY ANEMIA: Her iron profile is consistent with it. This could also be related to celiac disease. She has had low B12 in the past. However she is not able to tolerate oral iron. 2. ACD: Is in the differential given her host of medical issues. 3. HEMOLYTIC ANEMIA: doubt. PLAN: Will proceed with further evaluation. Will check transgluteal IgA to look for celiac disease. Will arrange for IV iron. Injectofer 750 mg IV x2, 1 week apart. She will be referred to GI on account of her intermittent choking/ dysphagia, gas nausea and constipation. She has not had a colonoscopy in the past. She has not agree to it previously. Given her palpitations, an EKG was done. That showed normal sinus rhythm. With heart rate of 80. Will arrange for an echocardiogram. Will refer to Cardiology for event monitoring. All her and her son's questions were answered to their satisfaction. She will return in 3 months for a follow-up visit. Thank you, CC: Dr. Robles. Dr. Carcamo. Dr. Walls.
[2020-07-08 10:57] LABS: MANUAL DIFF FLAG NO
[2020-07-08 11:01] LABS: Basophils Absolute Auto 0.1 X10*3/uL (0.0-0.2); Basophils Percent Auto 0.8 % (0-2); Eosinophils Absolute Auto 0.3 X10*3/uL (0.0-0.4); Eosinophils Percent Auto 3.1 % (0-4); Hematocrit 33.4 % (37-47); Hemoglobin 10.4 g/dl (12.0-16.0); Imm Gran Abs Auto 0.02 X10*3/uL (0.00-0.03); Imm Gran Pct Auto 0.3 % (0.0-0.4); Lymphocytes Absolute Auto 3.2 X10*3/uL (1.2-4.9); Lymphocytes Percent Auto 40.1 % (20-40); Mean Corpuscular HGB Conc 31.1 g/dl (31.0-35.0); Mean Corpuscular Hemoglobin 24.4 pg (27.0-33.0); Mean Corpuscular Volume 78.2 fL (80-98); Mean Platelet Volume 9.5 fL (9.4-12.3); Monocytes Absolute Auto 0.7 X10*3/uL (0.1-1.2); Monocytes Percent Auto 9.1 % (2-11); Neutrophils Absolute Auto 3.7 X10*3/uL (2.0-8.3); Neutrophils Percent Auto 46.6 % (45-73); Platelet Count 457 X10*3/uL (160-400); Red Blood Count 4.27 X10*6/uL (4.20-5.50); Red Cell Distribution Width 18.5 % (11.0-16.0)
[2020-07-08 11:25] LABS: Alanine Aminotransferase 13 U/L (0-31); Albumin Level 3.9 g/dL (3.5-5.0); Alkaline Phosphatase 61 U/L (39-117); Anion Gap 14 (12-20); Aspartate Amino Transferase 10 U/L (5-31); Bilirubin Total 0.9 mg/dL (0.0-1.0); Blood Urea Nitrogen 14 mg/dL (9-16); Calcium 10.1 mg/dL (8.4-10.2); Carbon Dioxide 28 mmol/L (22-29); Chloride 94 mmol/L (96-108); Creatinine Clr Calc Pharmacy 58.6; Estimated Glomerular Filt Rate > 60; Glucose Random 219 mg/dL (60-115); Iron 85 mcg/dL (30-160); Percent Iron Saturation 19 % (15-50); Potassium 4.3 mmol/L (3.3-5.1); Sodium 132 mmol/L (135-145); Total Iron Binding Capacity 444 mcg/dL (228-428); Total Protein 7.8 g/dL (6.5-8.0); Unsaturated Iron Binding 359 ug/dL
[2020-07-08 11:46] LABS: Ferritin 8 ng/mL (10-250)
--- NOTE | 2020-07-08 12:18 | MHC.HEMONCMA ---
Addendum entered by Jyoti Byrd 07/08/20 14:28: Cardiology appt was made but not convenient for pt so they will call and reschedule. Original Note: Pt presents for consult on anemia. History reviewed with son. Referral to notch grinder. Pt scheduled for injectofer on 07/11/20 @ 1pm. Pt to return in 3 months.
[2020-07-09 10:52] LABS: OBS2 NEGATIVE (NEGATIVE)
[2020-07-09 10:53] LABS: OBS Int Ctl Valid YES; OBS3 NEGATIVE (NEGATIVE)
[2020-07-09 10:54] LABS: OBS1 NEGATIVE (NEGATIVE)
[2020-07-10 23:27] LABS: Transglutaminase IgA 1 U/mL
== END | disposition home or self-care (01) ==
LOC: HO.ONC 07-08 10:06
PROVIDERS: Internal Medicine Gastroenterology; PCP Internal Medicine; Visit Provider Internal Medicine Medical Oncology
DX: D50.9 Iron deficiency anemia, unspecified (principal); R13.10 Dysphagia, unspecified; K59.00 Constipation, unspecified; R00.2 Palpitations; Z86.73 Personal history of transient ischemic attack (TIA), and cerebral infarction without residual deficits
CPT/HCPCS: 36415; 80053; 82270; 82728; 83516; 83540; 85025; 93005; 99204

== ENCOUNTER 2023-11-03 08:19 | Outpatient (AMB) | payer MEDICAID, SELFPAY ==
--- NOTE | 2023-11-03 08:34 | MHC.PC.OV ---
Intake Visit Reasons: Missed appt/ F/u Allergies simvastatin Allergy (Unknown, Verified 11/03/23 08:34) shortness of breath Medication List - Last Reconciled 11/03/23 by Josse Robles MD alprazolam 0.25 mg PO ONCE PRN 30 days aspirin (Adult Aspirin Regimen) 81 mg PO DAILY 90 days atenolol 50 mg PO BID [bed rails as ordered As directed] blood sugar diagnostic (FreeStyle Lite Strips) Use to test blood sugar twice daily. cholecalciferol (vitamin D3) 25 mcg PO DAILY clonidine HCl 0.1 mg PO BID commode (bedside commode) Extra large bedside commode use As directed commode 3-in-1 commode chair cyanocobalamin (vitamin B-12) 1,000 mcg PO DAILY 90 days diaper,brief,adult,disposable (Select Disposable Briefs) Uses 3 per day As directed, Extra Large diltiazem HCl CD 180 mg PO DAILY [Disposable bed pads-uses 3/day As directed] [disposable body wipes Use As directed] disposable gloves Use As directed docusate sodium (DOK) 100 mg PO DAILY PRN 90 days escitalopram oxalate 10 mg PO DAILY PRN ezetimibe 10 mg PO DAILY glipizide 5 mg PO BID 90 days hospital bed Full electric hospital bed with bilateral half rails hydrochlorothiazide 12.5 mg PO DAILY losartan 50 mg PO BID metformin 1,000 mg PO BID 90 days metoclopramide HCl 5 mg PO DAILY omeprazole 20 mg PO DAILY polyethylene glycol 3350 (Miralax) 17 grams PO DAILY sennosides (Natural Senna Laxative) 8.6 mg PO BEDTIME simethicone 0.6 mL PO QID PRN 90 days [standard wheelchair-extra Lg Use As directed] [tub transfer bench As directed] Tobacco use date assessed: 11/03/23 Fall risk assessment: No Falls in past year Last assessed Fall Risk: 11/03/23 Dental Screening Dental Screen Date: 11/03/23 Did you have a dental visit in the last 12 months?: No Did you have a dental problem in the last 6 months where you did not have access to dental care?: No Was dental information given to patient?: No HPI Missed appt/ F/u HPI Details This is a telemedicine hospital discharge follow-up Patient is 83-year-old female she was admitted in [facility] September 29 2023 Patient have a previous history of stroke with residual left-sided weakness Patient was brought in by family through ambulance with chief complaint of possible stroke In emergency room examination revealed slurred speech slight left nasolabial fold flattening, diminished light touch sensation over left upper and lower extremity, 4/5 strength in upper extremity and 3 x 5 strength in lower extremity Magnesium was low at 1.4 which was repleted Chest x-ray revealed increase in the size of anterior mediastinal mass since 09/16/2022, and poor inspiratory effort. CT head revealed severe chronic white matter changes and previous lacunar and right superior thalamic infarcts, posterior limb of right internal capsule. CTA head and neck showed moderate to severe stenosis of the supraclinoid right ICA and moderate to severe stenosis of the supraclinoid left ICA. New moderate stenosis of the origin of the right middle cerebral artery. Severe stenosis of the proximal right MCA branch No new hemodynamically significant stenosis of the extracranial internal carotid and vertebral arteries Anterior mediastinal mass which is incompletely within the field of view After workup and management patient was discharged home She was brought back again next day with the same complaint of altered mental status and severe weakness In emergency room she was found to have a clonidine patch on and the family has been giving her oral clonidine as well Not aware that patient is having a patch on. That dropped her blood pressure and changed her mental status There were no new other findings, other than difficulty swallowing liquids EKG showed no ischemic changes, heart rate of 57 normal sinus rhythm, with first-degree AV block She was supposed to go to rehab facility, but family refused and took her home. No family is struggling with the care of the patient even though patient has VNA coming over through [facility] And physical therapy at home is also continued Most of the history taken by the patient's son Who verbalize that patient is not able to even change her position in the bed She is also complaining of leg cramps, family is able to transfer her to so for and wheelchair during the day Patient is having difficulty sleeping at night Also having difficulty with the bowel movements Difficulty swallowing liquids and for that reason she is been given Thick-it to thicken the liquids Medications are being crushed and mixed with applesauce or pudding. Some of the medications are very better so patient usually end up throwing them up like Tylenol Her discharge medications are Clonidine 0.3 mg b.i.d. But family is giving her half a tablet b.i.d. Hydralazine 25 mg 2 tablets t.i.d. but family is not giving it to her as they feel patient's blood pressure drops Zetia discontinue Aldactone 100 QT which is also on hold Losartan 50 mg b.i.d. Diltiazem 180 mg Q a.m. Glipizide 5 mg q.d. Metformin b.i.d. Family says that the blood pressure is running around 140 systolic which is normal for the patient so they have held some medications Her blood pressure is managed through Nephrology they will communicate with them For the difficulty of bowel movement patient is already on Senokot S and MiraLax, family was instructed to use fleets enema as needed We are already working on a hospital bed to facilitate family care of patient Difficulty sleeping will be addressed with Xanax 0.5 mg rather than 0.25 at night. I have changed Tylenol told he quit She is having speech therapy at home as well Patient already have a bedside commode at home We will set up another telephone visit in 2 weeks 60 minutes spent in care of this patient [facility] Medical History CVA (cerebral vascular accident) Iron deficiency Low hemoglobin Constipation by delayed colonic transit Gastroparesis Bladder disorder Anxiety, generalized Hypertension, essential Diabetes 1.5, managed as type 2 Surgical History No pertinent past surgical history Family History Father No problems noted. Mother No problems noted. Brother Diabetes Sister Diabetes Social History Household Members: Children Housing: House Are you a primary personal care service provider to a significant other at home: No Do you presently have visiting nurse or other home services: Yes (physical therapy) Alcohol intake: never Patient Tobacco Use Status: Never used Tobacco e-Cigarette/Vaping Use: Never Used service: No Current occupational status: retired Cognitive needs: No Hearing needs: No Vision needs: Yes Questionnaire PHQ-9 Over the last 2 weeks, how often have you been bothered by any of the following problems? 1. Little interest or pleasure in doing things: not at all 2. Feeling down, depressed, or hopeless: not at all 3. Trouble falling or staying asleep, or sleeping too much: not at all 4. Feeling tired or having little energy: not at all 5. Poor appetite or overeating: not at all 6. Feeling bad about yourself - or that you are a failure or have let yourself or your family down: not at all 7. Trouble concentrating on things, such as reading the newspaper or watching television: not at all 8. Moving or speaking so slowly that other people could have noticed. Or the opposite - being so fidgety or restless that you have been moving around a lot more than usual: not at all 9. Thoughts that you would be better off or of hurting yourself in some way: not at all Total score: 0 Depression Screening Interpretation: Negative Depression Screening Done: Yes 25220 - PHQ-9 Billing: Yes Source: Developed by Drs. Familia Weaver, Sheri Munoz, Medhat Loza and colleagues, with an educational kyung from [employer]. Thrive Questionnaire Date Thrive assessed: 11/03/23 I am a: Patient What is your living situation today?: I have a steady place to live Within the past 12 months, did the food you bought not last and you didn't have the money to get more?: Never true Within the past 12 months, did you worry whether your food would run out before you got money to buy more?: Never true Do you have trouble paying for medicines?: No Do you have trouble getting transportation to medical appointments?: No Do you have trouble paying your heating and electricity bill?: No Do you have trouble taking care of your child, family member or friend?: No Do you have trouble with day-to-day activities such as bathing, preparing meals, shopping, managing finances, etc.?: No Are you currently unemployed and looking for a job?: No Are you interested in more education?: No Please select the resources that you would like help with: None Currently or been in a relationship where the following occur: No concerns reported THRIVE Score: 0 AUDIT C Alcohol Use Questionnaire (AUDIT-C) 1. How often do you have a drink containing alcohol?: Never 3. How often do you have six or more drinks on one occasion?: Never Total Score: 0 Score Reviewed/Action Taken: Yes RICHARD-7 AMB Questionnaire RICHARD-7 Date RICHARD - 7 assessed: 11/03/23 Feeling nervous, anxious, or on edge: 0 = Not at all Not being able to stop or control worryin = Not at all Worrying too much about different things: 0 = Not at all Trouble relaxin = Not at all Being so restless that it is hard to sit still: 0 = Not at all Becoming easily annoyed or irritable: 0 = Not at all Feeling afraid as if something awful might happen: 0 = Not at all Total RICHARD-7 score (0-4 normal; 5-9 mild; 10-14 moderate; 15-21 severe): 0 Source: Developed by Drs. Familia Weaver, Sheri Munoz, Medhat Loza and colleagues, with an educational kyung from [employer]. RICHARD-7 Assessment Billing RICHARD-7 Assessment Tool: RICHARD-7 Assessment 33356 Review of Systems Const Denies chills and Denies fever(s) ENT Denies epistaxis and Denies nasal discharge Card Denies chest pain Resp Denies hemoptysis GI Denies diarrhea and Denies nausea Skin/Breast Denies rash Neuro Reports no additional complaints Psych Reports no additional complaints Endo Reports no additional complaints Physical exam (Primary Care) Tobacco/Smoking Status: Tobacco use Status Tobacco use date assessed 11/03/23 11/03/23 08:36 Patient Tobacco Use Status Never used Tobacco 11/03/23 08:36 e-Cigarette/Vaping Use Never Used 11/03/23 08:36 PHQ-9: PHQ-9 Score PHQ-9: Total score 0 11/03/23 10:20 Depression Screening Interpretation: Negative Thrive Assessment: Date of Thrive Assessment Date Thrive assessed 11/03/23 11/03/23 08:36 Currently or been in a relationship where the following occur: No concerns reported Telehealth Telehealth Telehealth Platform: D[employer] Location of provider rendering services: practice address Location of patient: address on file Patient Identification confirmed using: Name, : Yes Telehealth method: video Patient verbally consented to treatment: Yes Patient verbally consented to billing insurance company: Yes Patient informed of any privacy concerns related to visit: Yes Assessment and Plan Assessment & Plan (1) Hospital discharge follow-up: Code(s): Z09 - Encounter for follow-up examination after completed treatment for conditions other than malignant neoplasm (2) Acute stroke due to ischemia: Code(s): I63.9 - Cerebral infarction, unspecified (3) Bedridden: Code(s): Z74.01 - Bed confinement status (4) Difficulty swallowing pills: Code(s): R13.10 - Dysphagia, unspecified (5) Slurred speech: Code(s): R47.81 - Slurred speech (6) Leg cramps: Code(s): R25.2 - Cramp and spasm (7) Constipation by delayed colonic transit: Comment: Continue Colace daily and add MiraLax 2 to 3 times a week Code(s): K59.01 - Slow transit constipation (8) Anxiety, generalized: Code(s): F41.1 - Generalized anxiety disorder (9) Diabetes 1.5, managed as type 2: Code(s): E13.9 - Other specified diabetes mellitus without complications (10) Hypertension, essential: Code(s): I10 - Essential (primary) hypertension (11) Low hemoglobin: Code(s): D64.9 - Anemia, unspecified (12) Wheelchair dependence: Code(s): Z99.3 - Dependence on wheelchair Plan This is a telemedicine hospital discharge follow-up Patient is 83-year-old female she was admitted in [facility] September 29 2023 Patient have a previous history of stroke with residual left-sided weakness Patient was brought in by family through ambulance with chief complaint of possible stroke In emergency room examination revealed slurred speech slight left nasolabial fold flattening, diminished light touch sensation over left upper and lower extremity, 4/5 strength in upper extremity and 3 x 5 strength in lower extremity Magnesium was low at 1.4 which was repleted Chest x-ray revealed increase in the size of anterior mediastinal mass since 09/16/2022, and poor inspiratory effort. CT head revealed severe chronic white matter changes and previous lacunar and right superior thalamic infarcts, posterior limb of right internal capsule. CTA head and neck showed moderate to severe stenosis of the supraclinoid right ICA and moderate to severe stenosis of the supraclinoid left ICA. New moderate stenosis of the origin of the right middle cerebral artery. Severe stenosis of the proximal right MCA branch No new hemodynamically significant stenosis of the extracranial internal carotid and vertebral arteries Anterior mediastinal mass which is incompletely within the field of view After workup and management patient was discharged home She was brought back again next day with the same complaint of altered mental status and severe weakness In emergency room she was found to have a clonidine patch on and the family has been giving her oral clonidine as well Not aware that patient is having a patch on. That dropped her blood pressure and changed her mental status There were no new other findings, other than difficulty swallowing liquids EKG showed no ischemic changes, heart rate of 57 normal sinus rhythm, with first-degree AV block She was supposed to go to rehab facility, but family refused and took her home. No family is struggling with the care of the patient even though patient has VNA coming over through [facility] And physical therapy at home is also continued Most of the history taken by the patient's son Who verbalize that patient is not able to even change her position in the bed She is also complaining of leg cramps, family is able to transfer her to so for and wheelchair during the day Patient is having difficulty sleeping at night Also having difficulty with the bowel movements Difficulty swallowing liquids and for that reason she is been given Thick-it to thicken the liquids Medications are being crushed and mixed with applesauce or pudding. Some of the medications are very better so patient usually end up throwing them up like Tylenol Her discharge medications are Clonidine 0.3 mg b.i.d. But family is giving her half a tablet b.i.d. Hydralazine 25 mg 2 tablets t.i.d. but family is not giving it to her as they feel patient's blood pressure drops Zetia discontinue Aldactone 100 QT which is also on hold Losartan 50 mg b.i.d. Diltiazem 180 mg Q a.m. Glipizide 5 mg q.d. Metformin b.i.d. Family says that the blood pressure is running around 140 systolic which is normal for the patient so they have held some medications Her blood pressure is managed through Nephrology they will communicate with them For the difficulty of bowel movement patient is already on Senokot S and MiraLax, family was instructed to use fleets enema as needed We are already working on a hospital bed to facilitate family care of patient Difficulty sleeping will be addressed with Xanax 0.5 mg rather than 0.25 at night. I have changed Tylenol told he quit She is having speech therapy at home as well Patient already have a bedside commode at home We will set up another telephone visit in 2 weeks 60 minutes spent in care of this patient Medications: New [Thickit] use as directed 3 packets 3RF acetaminophen 650 mg (20.3 mL) PO TID 30 days PRN 609 mL 2RF pain Changed From alprazolam 0.25 mg PO ONCE 30 days PRN 30 tabs 2RF anxiety F41.1 - Generalized anxiety disorder To alprazolam 0.5 mg PO ONCE 30 days PRN 30 tabs 2RF anxiety F41.1 - Generalized anxiety disorder On Hold metoclopramide HCl Hold Comment: Doctor's Order 5 mg PO DAILY 90 tabs 3RF for nausea/vomiting E53.8 - Deficiency of other specified B group vitamins Coding Level of Care Code Tele Est Pt Level 5 (93645) Diagnoses Hospital discharge follow-up Z09 Acute stroke due to ischemia I63.9 Bedridden Z74.01 Difficulty swallowing pills R13.10 Slurred speech R47.81 Leg cramps R25.2 Constipation by delayed colonic transit K59.01 Anxiety, generalized F41.1 Diabetes 1.5, managed as type 2 E13.9 Hypertension, essential I10 Low hemoglobin D64.9 Wheelchair dependence Z99.3 Additional Codes RICHARD-7 Assessment Billing - RICHARD-7 Assessment Tool: RICHARD-7 Assessment [id number] ([id number])
== END 2023-11-03 10:31 | disposition home or self-care (01) ==
LOC: HO.HMGC 08:19
PROVIDERS: PCP Internal Medicine; Visit Provider Internal Medicine
DX: E13.9 Other specified diabetes mellitus without complications (principal); R13.10 Dysphagia, unspecified; Z74.01 Bed confinement status; R25.2 Cramp and spasm; Z09 Encounter for follow-up examination after completed treatment for conditions other than malignant neoplasm; K59.01 Slow transit constipation; F41.1 Generalized anxiety disorder; I10 Essential (primary) hypertension; D64.9 Anemia, unspecified; R47.81 Slurred speech; Z99.3 Dependence on wheelchair
CPT/HCPCS: 99215

== ENCOUNTER 2023-11-15 13:55 | Outpatient (AMB) | payer MEDICAID, SELFPAY ==
--- NOTE | 2023-11-15 13:51 | HO.NEPHOV ---
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 cholecalciferol (vitamin D3) 25 mcg PO DAILY clonidine HCl 0.1 mg PO BID commode (bedside commode) Extra large bedside commode use As directed commode 3-in-1 commode chair cyanocobalamin (vitamin B-12) 1,000 mcg PO DAILY 90 days diaper,brief,adult,disposable (Select Disposable Briefs) Uses 3 per day As directed, Extra Large diltiazem HCl CD 180 mg PO DAILY [Disposable bed pads-uses 3/day As directed] [disposable body wipes Use As directed] disposable gloves Use As directed docusate sodium (DOK) 100 mg PO DAILY PRN 90 days escitalopram oxalate 10 mg PO DAILY PRN ezetimibe 10 mg PO DAILY glipizide 5 mg PO BID 90 days hospital bed Full electric hospital bed with bilateral half rails hydralazine 50 mg PO TID hydrochlorothiazide 12.5 mg PO DAILY losartan 50 mg PO BID metformin 1,000 mg PO BID 90 days metoclopramide HCl 5 mg PO DAILY omeprazole 20 mg PO DAILY polyethylene glycol 3350 (Miralax) 17 grams PO DAILY sennosides (Natural Senna Laxative) 8.6 mg PO BEDTIME simethicone 0.6 mL PO QID PRN 90 days [standard wheelchair-extra Lg Use As directed] [Thickit use as directed] [tub transfer bench As directed] HPI Comments Details: 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 She probably had a TIA. During workup she was found to have a mediastinal mass. According to her son she has had this mass for almost 10-15 years however the recent scan shows an increase in the size. The mediastinal mass measures about 9 cm. The family does not want to proceed with any further workup. 10/20/2023. Recently had a stroke. Antihypertensive medication has been readjusted. Spoke to her son in detail 11/15/23 Home BP is creeping up Meds reviewed [facility] Medical History CVA (cerebral vascular accident) Iron deficiency Low hemoglobin Constipation by delayed colonic transit Gastroparesis Bladder disorder Anxiety, generalized Hypertension, essential Diabetes 1.5, managed as type 2 Surgical History No pertinent past surgical history Family History Father No problems noted. Mother No problems noted. Brother Diabetes Sister Diabetes Social History Household Members: Children Housing: House Are you a primary assistant child care teacher to a significant other at home: No Do you presently have visiting nurse or other home services: Yes (physical therapy) Alcohol intake: never Patient Tobacco Use Status: Never used Tobacco e-Cigarette/Vaping Use: Never Used service: No Current occupational status: retired Cognitive needs: No Hearing needs: No Vision needs: Yes Telehealth Telehealth Telehealth Platform: Telephone Location of provider rendering services: practice address Location of patient: address on file Patient Identification confirmed using: Name, : Yes Telehealth method: voice only Patient verbally consented to treatment: Yes Patient verbally consented to billing insurance company: Yes Patient informed of any privacy concerns related to visit: Yes Results Reviewed Nephrology Results: Hgb 10.2 g/dl (12.0-16.0) L 07/20/23 WBC 7.2 X10*3/uL (4.8-10.8) 07/20/23 Plt Count 491 X10*3/uL (160-400) H 07/20/23 Sodium 134 mmol/L (135-145) L 07/20/23 Potassium 3.8 mmol/L (3.3-5.1) 07/20/23 Chloride 96 mmol/L (96-108) 07/20/23 Carbon Dioxide 22 mmol/L (22-29) 07/20/23 BUN 10 mg/dL (9-16) 07/20/23 Creatinine 0.64 mg/dL (0.5-1.4) 07/20/23 Calcium 9.9 mg/dL (8.4-10.2) 07/20/23 Urine Creatinine 24.18 mg/dL 07/20/23 Assessment & Plan Assessment & Plan (1) Uncontrolled hypertension: Code(s): I10 - Essential (primary) hypertension Category: Medical (2) Hypertension, essential: Code(s): I10 - Essential (primary) hypertension Category: Medical Plan Elderly woman with resistant hypertension. Recent CVA. We will keep her on current regimen. Avoid hypotensive episodes. For now I would be happy to maintain systolic blood pressure between 130 and 150 mm Hg. Increase Hydralazine 50 mg TID Continue Atenolol BID and other meds Discussed in detail with son Medications: New hydralazine 50 mg PO TID Coding Level of Care Code Tele New Pt Level 3 (59099) Diagnoses Uncontrolled hypertension I10 Hypertension, essential I10
== END 2023-11-15 15:42 | disposition home or self-care (01) ==
PROVIDERS: PCP Internal Medicine; Visit Provider Internal Medicine Hypertension Specialist
DX: I1A.0 Resistant hypertension (principal)
CPT/HCPCS: 99213

== ENCOUNTER → 2023-11-15 13:55 | Outpatient (BNVA) | payer MEDICAID, SELFPAY | PROVIDERS: PCP Internal Medicine; Visit Provider Internal Medicine Hypertension Specialist ==

== ENCOUNTER 2023-11-18 12:42 | Outpatient (AMB) | payer MEDICAID, SELFPAY ==
[2023-11-18 12:49] VITALS: BP 130/76; PULSE 88; O2SAT 96
--- NOTE | 2023-11-18 12:49 | MHC.PC.OV ---
Vital Signs 11/18/23 12:49 Height 5 ft BMI Reason not done Patient refused/unable BP 130/76 Blood Pressure Location Lt brachial Position Sitting Pulse 88 Pulse Source Pulse Oximeter Pulse Oximetry (%) 96 Oxygen Delivery Method Room Air Intake Visit Reasons: Leg Pain below knee both legs Allergies simvastatin Allergy (Unknown, Verified 11/18/23 12:52) shortness of breath Medication List - Last Reconciled 11/18/23 by Josse Robles MD acetaminophen 650 mg (20.3 mL) PO TID PRN 30 days alprazolam 0.5 mg PO ONCE PRN 30 days aspirin (Adult Aspirin Regimen) 81 mg PO DAILY 90 days atenolol 50 mg PO BID [bed rails as ordered As directed] blood sugar diagnostic (FreeStyle Lite Strips) Use to test blood sugar twice daily. cholecalciferol (vitamin D3) 25 mcg PO DAILY clonidine HCl 0.1 mg PO BID commode (bedside commode) Extra large bedside commode use As directed commode 3-in-1 commode chair cyanocobalamin (vitamin B-12) 1,000 mcg PO DAILY 90 days diaper,brief,adult,disposable (Select Disposable Briefs) Uses 3 per day As directed, Extra Large diltiazem HCl CD 180 mg PO DAILY [Disposable bed pads-uses 3/day As directed] [disposable body wipes Use As directed] disposable gloves Use As directed docusate sodium (DOK) 100 mg PO DAILY PRN 90 days escitalopram oxalate 10 mg PO DAILY PRN ezetimibe 10 mg PO DAILY glipizide 5 mg PO BID 90 days hospital bed Full electric hospital bed with bilateral half rails hydralazine 50 mg PO TID hydrochlorothiazide 12.5 mg PO DAILY losartan 50 mg PO BID metformin 1,000 mg PO BID 90 days metoclopramide HCl 5 mg PO DAILY omeprazole 20 mg PO DAILY polyethylene glycol 3350 (Miralax) 17 grams PO DAILY sennosides (Natural Senna Laxative) 8.6 mg PO BEDTIME simethicone 0.6 mL PO QID PRN 90 days [standard wheelchair-extra Lg Use As directed] [Thickit use as directed] [tub transfer bench As directed] Tobacco use date assessed: 11/18/23 Dental Screening Dental Screen Date: 11/03/23 HPI Leg Pain below knee both legs HPI Details Patient came in today with the family with a chief complaint of pain left leg Which is causing excruciating discomfort especially at night and she is not able to sleep Xanax is also not working for the patient she continued to feel anxious She has appointment coming up with a neurologist I have advised family to talk about sleeping difficulty with the Neurology Meanwhile I am changing his Xanax to lorazepam 0.5 mg once a day at night Constipation is better, however patient is now having frequent bowel movements Family was not able to give her fleets enema In the like neurology appointment set up with Dr. Chung, referral placed Continued to have bloating sensation and phlegm after eating Patient have chronic GERD Patient is on 3 medication for abdominal discomfort Simethicone, omeprazole and metoclopramide Family has not been giving her omeprazole, I would recommend to start doing that. Blood pressure is stable today, patient son was not giving her a lot of blood pressure medications at last visit And her blood pressure shot up, they had appointment with Nephrology and medications were restarted again After recent stroke patient is having increasing weakness in her left arm and leg She has a very limited range of motion in her left arm which is also slightly swollen compared to right due not been able to use [facility] Medical History CVA (cerebral vascular accident) Iron deficiency Low hemoglobin Constipation by delayed colonic transit Gastroparesis Bladder disorder Anxiety, generalized Hypertension, essential Diabetes 1.5, managed as type 2 Surgical History No pertinent past surgical history Family History Father No problems noted. Mother No problems noted. Brother Diabetes Sister Diabetes Social History Household Members: Children Housing: House Are you a primary health care coordinator to a significant other at home: No Do you presently have visiting nurse or other home services: Yes (physical therapy) Alcohol intake: never Patient Tobacco Use Status: Never used Tobacco e-Cigarette/Vaping Use: Never Used service: No Current occupational status: retired Cognitive needs: No Hearing needs: No Vision needs: Yes Questionnaire PHQ-9 Over the last 2 weeks, how often have you been bothered by any of the following problems? 1. Little interest or pleasure in doing things: several days 2. Feeling down, depressed, or hopeless: several days 3. Trouble falling or staying asleep, or sleeping too much: several days 4. Feeling tired or having little energy: nearly every day 5. Poor appetite or overeating: more than half the days 6. Feeling bad about yourself - or that you are a failure or have let yourself or your family down: not at all 7. Trouble concentrating on things, such as reading the newspaper or watching television: nearly every day 8. Moving or speaking so slowly that other people could have noticed. Or the opposite - being so fidgety or restless that you have been moving around a lot more than usual: nearly every day 9. Thoughts that you would be better off or of hurting yourself in some way: not at all Total score: 14 Depression Screening Interpretation: Positive Depression Screening Follow-up: Existing condition and In treatment Depression Screening Done: Yes 72251 - PHQ-9 Billing: Yes Source: Developed by Drs. Familia Weaevr, Sheri Munoz, Medhat Loza and colleagues, with an educational kyung from [employer]. Thrive Questionnaire Date Thrive assessed: 11/03/23 I am a: Parent/Caregiver What is your living situation today?: I have a steady place to live Within the past 12 months, did the food you bought not last and you didn't have the money to get more?: Never true Within the past 12 months, did you worry whether your food would run out before you got money to buy more?: Never true Do you have trouble paying for medicines?: No Do you have trouble getting transportation to medical appointments?: I choose not to answer this question Do you have trouble paying your heating and electricity bill?: No Do you have trouble taking care of your child, family member or friend?: No Do you have trouble with day-to-day activities such as bathing, preparing meals, shopping, managing finances, etc.?: Yes Are you interested in more education?: No Please select the resources that you would like help with: Transportation and Care for elder or disabled Currently or been in a relationship where the following occur: I choose not to answer THRIVE Score: 0 AUDIT C Alcohol Use Questionnaire (AUDIT-C) 1. How often do you have a drink containing alcohol?: Never Total Score: 0 RICHARD-7 AMB Questionnaire RICHARD-7 Date RICHARD - 7 assessed: 11/03/23 Feeling nervous, anxious, or on edge: 1 = Several days Not being able to stop or control worryin = Several days Worrying too much about different things: 1 = Several days Trouble relaxin = More than half the days Being so restless that it is hard to sit still: 1 = Several days Becoming easily annoyed or irritable: 2 = More than half the days Feeling afraid as if something awful might happen: 0 = Not at all Total RICHARD-7 score (0-4 normal; 5-9 mild; 10-14 moderate; 15-21 severe): 8 Source: Developed by Drs. Familia Weaver, Sheri Munoz, Medhat Loza and colleagues, with an educational kyung from [employer]. Review of Systems Const Denies chills and Denies fever(s) ENT Denies epistaxis and Denies nasal discharge Card Denies chest pain Resp Denies hemoptysis GI Denies diarrhea and Denies nausea Skin/Breast Denies rash Neuro Reports no additional complaints Psych Reports no additional complaints Endo Reports no additional complaints Physical exam (Primary Care) Vital Signs: Last Vital Signs Pulse 88 11/18/23 12:49 BP 130/76 11/18/23 12:49 Pulse Ox 96 11/18/23 12:49 Oxygen Delivery Method Room Air 11/18/23 12:49 Tobacco/Smoking Status: Tobacco use Status Tobacco use date assessed 11/18/23 11/18/23 12:53 Patient Tobacco Use Status Never used Tobacco 11/18/23 12:53 e-Cigarette/Vaping Use Never Used 11/18/23 12:53 PHQ-9: PHQ-9 Score PHQ-9: Total score 14 11/18/23 13:47 Depression Screening Interpretation: Positive Depression Screening Follow-up: Existing condition and In treatment Thrive Assessment: Date of Thrive Assessment Date Thrive assessed 11/03/23 11/18/23 12:53 Currently or been in a relationship where the following occur: I choose not to answer Const Other: Elderly female sitting in a wheelchair, speech is slurred General: cooperative, comfortable and no acute distress Orientation/consciousness: patient oriented x3 HENMT Head: Yes normocephalic Eyes General: appearance normal, both eyes and all related structures Neck Neck: Yes supple Resp Effort & Inspection: normal respiratory effort, no cough and no stridor Cardio Rhythm: regular rhythm Heart sounds: S1 normal heart sound present and S2 normal heart sound present Skin General skin exam: turgor normal Neuro General: patient oriented x3 and tone normal Extrem Right lower extremity: no edema Left lower extremity: no edema Assessment and Plan Assessment & Plan (1) Pain in left lower leg: Code(s): M79.662 - Pain in left lower leg (2) Acute stroke due to ischemia: Code(s): I63.9 - Cerebral infarction, unspecified (3) Left hemiparesis: Code(s): G81.94 - Hemiplegia, unspecified affecting left nondominant side Plan Patient came in today with the family with a chief complaint of pain left leg Which is causing excruciating discomfort especially at night and she is not able to sleep Xanax is also not working for the patient she continued to feel anxious She has appointment coming up with a neurologist I have advised family to talk about sleeping difficulty with the Neurology Meanwhile I am changing his Xanax to lorazepam 0.5 mg once a day at night Constipation is better, however patient is now having frequent bowel movements Family was not able to give her fleets enema Family would like to have neurology appointment set up with Dr. Chung, referral placed Continued to have bloating sensation and phlegm after eating Patient have chronic GERD Patient is on 3 medication for abdominal discomfort Simethicone, omeprazole and metoclopramide Family has not been giving her omeprazole, I would recommend to start doing that. Blood pressure is stable today, patient son was not giving her a lot of blood pressure medications at last visit And her blood pressure shot up, they had appointment with Nephrology and medications were restarted again After recent stroke patient is having increasing weakness in her left arm and leg She has a very limited range of motion in her left arm which is also slightly swollen compared to right due not been able to use Stat ultrasound of left lower extremity was ordered to rule out DVT as a source of pain Orders: Orders US venous duplex LE LT Today M79.662 - Pain in left lower leg Referrals Neurology Referral G81.94 - Hemiplegia, unspecified affecting left nondominant side, I63.9 - Cerebral infarction, unspecified Medications: New lorazepam 0.5 mg PO BEDTIME PRN 30 tabs 0RF anxiety Discontinued alprazolam Discontinued Reason: Doctor's Order 0.5 mg PO ONCE 30 days PRN 30 tabs 2RF anxiety F41.1 - Generalized anxiety disorder Coding Level of Care Code Est Pt Level 4 (76058) Complex EM visit Add On G2211 Diagnoses Pain in left lower leg M79.662 Acute stroke due to ischemia I63.9 Left hemiparesis G81.94
== END 2023-11-18 13:46 | disposition home or self-care (01) ==
PROVIDERS: PCP Internal Medicine; Visit Provider Internal Medicine
DX: M79.662 Pain in left lower leg (principal); I63.9 Cerebral infarction, unspecified; G81.94 Hemiplegia, unspecified affecting left nondominant side

== ENCOUNTER → 2023-11-18 12:42 | Outpatient (BNVA) | payer MEDICAID, SELFPAY | PROVIDERS: PCP Internal Medicine; Visit Provider Internal Medicine ==

== ENCOUNTER 2023-11-18 13:23 | Outpatient (REF) | payer MEDICAID, SELFPAY ==
--- NOTE | ~2023-11-18 | US_ITS ---
EXAMINATION: US TRIPLEX LOWER EXTREMITY, LEFT CLINICAL INFORMATION: Left leg pain. COMPARISON: None available. TECHNIQUE: Color-flow triplex imaging with spectral analysis and compression Doppler were performed on the left lower extremity. FINDINGS: Respiratory variation, normal compression and augmented flow are noted throughout the left lower extremity. The visualized common femoral vein, superficial femoral vein, profunda femoral vein, popliteal vein and midcalf peroneal and posterior tibial venous segments show no evidence of deep venous thrombosis. There is no Fernandes's cyst. US/US venous duplex LE LT IMPRESSION: No evidence of deep venous thrombosis involving the left lower extremity. Electronically signed by: Peter Cano MD 11/18/2023 03:25 PM EDT
== END 2023-11-18 13:24 | disposition home or self-care (01) ==
LOC: HO.HMGCX 13:23
PROVIDERS: PCP Internal Medicine; Visit Provider Internal Medicine
DX: M79.662 Pain in left lower leg (principal)
CPT/HCPCS: 93971; 99212

== ENCOUNTER 2023-12-01 08:44 | Outpatient (AMB) | payer MEDICAID, SELFPAY ==
--- NOTE | 2023-12-01 09:17 | MHC.PC.OV ---
Intake Visit Reasons: Discuss Medication~ [phone] Allergies simvastatin Allergy (Unknown, Verified 12/01/23 09:17) shortness of breath Medication List - Last Reconciled 12/01/23 by Josse Robles MD acetaminophen 650 mg (20.3 mL) PO TID PRN 30 days aspirin (Adult Aspirin Regimen) 81 mg PO DAILY 90 days atenolol 50 mg PO BID [bed rails as ordered As directed] blood sugar diagnostic (FreeStyle Lite Strips) Use to test blood sugar twice daily. cholecalciferol (vitamin D3) 25 mcg PO DAILY clonidine HCl 0.1 mg PO BID commode (bedside commode) Extra large bedside commode use As directed commode 3-in-1 commode chair cyanocobalamin (vitamin B-12) 1,000 mcg PO DAILY 90 days diaper,brief,adult,disposable (Select Disposable Briefs) Uses 3 per day As directed, Extra Large diltiazem HCl CD 180 mg PO DAILY [Disposable bed pads-uses 3/day As directed] [disposable body wipes Use As directed] disposable gloves Use As directed docusate sodium (DOK) 100 mg PO DAILY PRN 90 days escitalopram oxalate 10 mg PO DAILY PRN glipizide 5 mg PO BID 90 days hospital bed Full electric hospital bed with bilateral half rails hydralazine 50 mg PO TID hydrochlorothiazide 12.5 mg PO DAILY lorazepam 0.5 mg PO BEDTIME PRN losartan 50 mg PO BID metformin 1,000 mg PO BID 90 days metoclopramide HCl 5 mg PO DAILY omeprazole 20 mg PO DAILY polyethylene glycol 3350 (Miralax) 17 grams PO DAILY sennosides (Natural Senna Laxative) 8.6 mg PO BEDTIME simethicone 0.6 mL PO QID PRN 90 days [standard wheelchair-extra Lg Use As directed] [Thickit use as directed] [tub transfer bench As directed] Tobacco use date assessed: 12/01/23 Fall risk assessment: No Falls in past year Last assessed Fall Risk: 12/01/23 Dental Screening Dental Screen Date: 12/01/23 Did you have a dental visit in the last 12 months?: Yes Did you have a dental problem in the last 6 months where you did not have access to dental care?: No Was dental information given to patient?: Patient has dentist HPI Discuss Medication~ [phone] HPI Details Patient was evaluated by Neuro trazodon was recommeded for sleep spoke to family, we need to stop Lorazepam as per Neuro instructions if Trazodon to be started I have sent 30 tabs of Trazodone , family is to get back to me in a week to update me patient continue to complain of bloating and pain in left leg, after the stroke she has seen Gastro in 2020, EGD was recommended which patient declined she has apt for rehab Dec 20, Occupational therapy and speach therapy need to ordered as well family is now checking her sugar three times a day and is requesting more strips [facility] Medical History CVA (cerebral vascular accident) Iron deficiency Low hemoglobin Constipation by delayed colonic transit Gastroparesis Bladder disorder Anxiety, generalized Hypertension, essential Diabetes 1.5, managed as type 2 Surgical History No pertinent past surgical history Family History Father No problems noted. Mother No problems noted. Brother Diabetes Sister Diabetes Social History Household Members: Children Housing: House Are you a primary residential child care counselor to a significant other at home: No Do you presently have visiting nurse or other home services: Yes (physical therapy) Alcohol intake: never Patient Tobacco Use Status: Never used Tobacco e-Cigarette/Vaping Use: Never Used service: No Current occupational status: retired Cognitive needs: No Hearing needs: No Vision needs: Yes Questionnaire Thrive Questionnaire Date Thrive assessed: 11/03/23 AUDIT C Alcohol Use Questionnaire (AUDIT-C) 1. How often do you have a drink containing alcohol?: Never 3. How often do you have six or more drinks on one occasion?: Never Total Score: 0 Score Reviewed/Action Taken: Yes RICHARD-7 AMB Questionnaire RICHARD-7 Date RICHARD - 7 assessed: 11/03/23 Source: Developed by Drs. Familia Weaver, Sheri Munoz, Medhat Loza and colleagues, with an educational kyung from [employer]. Review of Systems Const Denies chills and Denies fever(s) ENT Denies epistaxis and Denies nasal discharge Card Denies chest pain Resp Denies hemoptysis GI Denies diarrhea Skin/Breast Denies rash Neuro Reports no additional complaints Psych Reports no additional complaints Endo Reports no additional complaints Physical exam (Primary Care) Tobacco/Smoking Status: Tobacco use Status Tobacco use date assessed 12/01/23 12/01/23 09:18 Patient Tobacco Use Status Never used Tobacco 12/01/23 09:18 e-Cigarette/Vaping Use Never Used 12/01/23 09:18 Thrive Assessment: Date of Thrive Assessment Date Thrive assessed 11/03/23 12/01/23 09:18 Telehealth Telehealth Telehealth Platform: [employer] Location of provider rendering services: practice address Location of patient: address on file Patient Identification confirmed using: Name, : Yes Telehealth method: voice only Patient verbally consented to treatment: Yes Patient verbally consented to billing insurance company: Yes Patient informed of any privacy concerns related to visit: Yes Minutes spent on Phone/Video with Pt.: 16 Coding Level of Care Code Tele Est Pt Level 4 (63558) Diagnoses Difficulty sleeping G47.9 Pain in left lower leg M79.662 Leg cramps R25.2 Slurred speech R47.81 Difficulty swallowing pills R13.10 Diabetes 1.5, 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 elderly R54 Difficulty walking R26.2 Assessment & Plan Assessment & Plan (1) Difficulty sleeping: Code(s): G47.9 - Sleep disorder, unspecified Category: Medical (2) Pain in left lower leg: Code(s): M79.662 - Pain in left lower leg Category: Medical (3) Leg cramps: Code(s): R25.2 - Cramp and spasm Category: Medical (4) Slurred speech: Code(s): R47.81 - Slurred speech Category: Medical (5) Difficulty swallowing pills: Code(s): R13.10 - Dysphagia, unspecified Category: Medical (6) Diabetes 1.5, managed as type 2: Code(s): E13.9 - Other specified diabetes mellitus without complications Category: Medical (7) Wheelchair dependence: Code(s): Z99.3 - Dependence on wheelchair Category: Medical (8) Frail elderly: Code(s): R54 - Age-related physical debility Category: Medical (9) Difficulty walking: Code(s): R26.2 - Difficulty in walking, not elsewhere classified Category: Medical Plan Patient was evaluated by Neuro trazodon was recommeded for sleep spoke to family, we need to stop Lorazepam as per Neuro instructions if Trazodon to be started I have sent 30 tabs of Trazodone , family is to get back to me in a week to update me patient continue to complain of bloating and pain in left leg, after the stroke she has seen Gastro in 2020, EGD was recommended which patient declined she has apt for rehab Dec 20, Occupational therapy and speach therapy need to ordered as well family is now checking her sugar three times a day and is requesting more strips 30 min spent in care of this patient Orders: Orders OT Evaluation and Treatment Today R26.2 - Difficulty in walking, not elsewhere classified, Z99.3 - Dependence on wheelchair Referrals Speech and Hearing Referral R13.10 - Dysphagia, unspecified, R47.81 - Slurred speech Medications: New trazodone 50 mg PO BEDTIME PRN 30 tabs 0RF sleep 30 days Changed From blood sugar diagnostic (FreeStyle Lite Strips) Use to test blood sugar twice daily. 100 ea 3RF E13.9 - Other specified diabetes mellitus without complications To blood sugar diagnostic (FreeStyle Lite Strips) test blood sugar three times a day 200 ea 3RF E13.9 - Other specified diabetes mellitus without complications Discontinued lorazepam Discontinued Reason: Doctor's Order 0.5 mg PO BEDTIME PRN 30 tabs 0RF anxiety
== END 2023-12-01 11:41 | disposition home or self-care (01) ==
LOC: HO.HMCC 08:44
PROVIDERS: PCP Internal Medicine; Visit Provider Internal Medicine
DX: G47.9 Sleep disorder, unspecified (principal); E13.9 Other specified diabetes mellitus without complications; M79.662 Pain in left lower leg; R25.2 Cramp and spasm; R47.81 Slurred speech; R13.10 Dysphagia, unspecified; Z99.3 Dependence on wheelchair; R54 Age-related physical debility; R26.2 Difficulty in walking, not elsewhere classified

== ENCOUNTER → 2023-12-01 08:44 | Outpatient (BNVA) | payer MEDICAID, SELFPAY | PROVIDERS: PCP Internal Medicine; Visit Provider Internal Medicine ==

== ENCOUNTER 2024-01-11 12:18 | Outpatient (AMB) | payer MEDICAID, SELFPAY ==
[2024-01-11 12:17] VITALS: BP 174/82; PULSE 84; O2SAT 96
--- NOTE | 2024-01-11 12:17 | HO.NEPHOV ---
Vital Signs 01/11/24 12:17 Height 5 ft BP 174/82 H Blood Pressure Location Lt brachial Position Sitting Pulse 84 Pulse Source Pulse Oximeter Pulse Oximetry (%) 96 Oxygen Delivery Method Room Air Intake Visit Reasons: Hypertension/ [phone]/ Conf Deicer Inspector Electric Required: No Accompanied by: Family/Other Allergies simvastatin Allergy (Unknown, Verified 01/11/24 12:18) shortness of breath Medication List - Last Reconciled 01/11/24 by Darius Alexander MD acetaminophen 650 mg (20.3 mL) PO TID PRN 30 days aspirin (Adult Aspirin Regimen) 81 mg PO DAILY 90 days atenolol 50 mg PO BID [bed rails as ordered As directed] blood sugar diagnostic (FreeStyle Lite Strips) test blood sugar three times a day cholecalciferol (vitamin D3) 25 mcg PO DAILY clonidine HCl 0.1 mg PO BID commode (bedside commode) Extra large bedside commode use As directed commode 3-in-1 commode chair cyanocobalamin (vitamin B-12) 1,000 mcg PO DAILY 90 days diaper,brief,adult,disposable (Select Disposable Briefs) Uses 3 per day As directed, Extra Large diltiazem HCl CD 180 mg PO DAILY [Disposable bed pads-uses 3/day As directed] [disposable body wipes Use As directed] disposable gloves Use As directed docusate sodium (DOK) 100 mg PO DAILY PRN 90 days escitalopram oxalate 10 mg PO DAILY PRN glipizide 5 mg PO BID 90 days hospital bed Full electric hospital bed with bilateral half rails hydralazine 50 mg (2 x 25 mg) PO TID 90 days losartan 50 mg PO BID metformin 1,000 mg PO BID 90 days metoclopramide HCl 5 mg PO DAILY omeprazole 20 mg PO DAILY polyethylene glycol 3350 (Miralax) 17 grams PO DAILY sennosides (Natural Senna Laxative) 8.6 mg PO BEDTIME simethicone 0.6 mL PO QID PRN 90 days spironolacton-hydrochlorothiaz 25-25 mg 0.5 tabs PO DAILY [standard wheelchair-extra Lg Use As directed] [Thickit use as directed] trazodone 50 mg PO BEDTIME PRN 30 days [tub transfer bench As directed] HPI Comments Details: Elderly woman with a history of resistant hypertension Recently hospitalized at [facility]. She probably had a TIA. During workup she was found to have a mediastinal mass. According to her son she has had this mass for almost 10-15 years however the recent scan shows an increase in the size. The mediastinal mass measures about 9 cm. The family does not want to proceed with any further workup. 01/11/2024. Here for follow-up. Accompanied by family members. Home blood pressure readings have been elevated. [facility] Medical History CVA (cerebral vascular accident) Iron deficiency Low hemoglobin Constipation by delayed colonic transit Gastroparesis Bladder disorder Anxiety, generalized Hypertension, essential Diabetes 1.5, managed as type 2 Surgical History No pertinent past surgical history Family History Father No problems noted. Mother No problems noted. Brother Diabetes Sister Diabetes Social History Household Members: Children Housing: House Are you a primary career and technology education teacher to a significant other at home: No Do you presently have visiting nurse or other home services: Yes (physical therapy) Alcohol intake: never Patient Tobacco Use Status: Never used Tobacco e-Cigarette/Vaping Use: Never Used service: No Current occupational status: retired Cognitive needs: No Hearing needs: No Vision needs: Yes Physical Exam Vital Signs: Last Vital Signs Pulse 84 01/11/24 12:17 BP 174/82 H 01/11/24 12:17 Pulse Ox 96 01/11/24 12:17 Oxygen Delivery Method Room Air 01/11/24 12:17 Neck Neck: Yes supple Resp Auscultation: clear to auscultation bilaterally Cardio Palpation: no palpable S3 Heart sounds: no rubs GI Palpation (GI): Soft to palpation Auscultation: normal bowel sounds Neuro Motor exam (neuro): no asterixis Results Reviewed Nephrology Results: No Data to Display Assessment & Plan Assessment & Plan (1) Hypertension, essential: Code(s): I10 - Essential (primary) hypertension Category: Medical (2) Uncontrolled hypertension: Code(s): I10 - Essential (primary) hypertension Category: Medical Plan Elderly woman with resistant hypertension. h/o Recent CVA. We will keep her on current regimen. Avoid hypotensive episodes. Keep current medications. Add Aldactazide 25/25 half tablet today and watch blood pressure. Can increase dosage based on home blood pressure readings. For now I would be happy to maintain systolic blood pressure between 130 and 150 mm Hg. I will check renal function and electrolytes along with hemoglobin prior to next visit. Orders: Orders Basic Metabolic Panel 2 Weeks Darius Alexander MD I10 - Essential (primary) hypertension Complete Blood Count no Diff 2 Weeks Darius Alexander MD I10 - Essential (primary) hypertension Medications: New spironolacton-hydrochlorothiaz 25-25 mg 0.5 tabs PO DAILY 90 tabs 0RF Darius Alexander MD Changed From clonidine HCl 0.3 mg (3 x 0.1 mg) PO BID 30 days 180 tabs 3RF To clonidine HCl 0.1 mg PO BID Tray Wood MD Coding Level of Care Code Est Pt Level 5 (91538) Diagnoses Hypertension, essential I10 Uncontrolled hypertension I10
== END 2024-01-11 12:41 | disposition home or self-care (01) ==
PROVIDERS: PCP Internal Medicine; Visit Provider Internal Medicine Hypertension Specialist
DX: I10 Essential (primary) hypertension (principal)
CPT/HCPCS: 99214

== ENCOUNTER → 2024-01-11 12:18 | Outpatient (BNVA) | payer MEDICAID, SELFPAY | PROVIDERS: PCP Internal Medicine; Visit Provider Internal Medicine Hypertension Specialist | DX: I1A.0 Resistant hypertension (principal); Z86.73 Personal history of transient ischemic attack (TIA), and cerebral infarction without residual deficits | CPT/HCPCS: 99212 ==

== ENCOUNTER 2024-03-01 09:05 | Outpatient (AMB) | payer MEDICAID, SELFPAY ==
--- NOTE | 2024-03-01 09:06 | MHC.PC.OV ---
Intake Visit Reasons: PT Allergies simvastatin Allergy (Unknown, Verified 01/11/24 12:18) shortness of breath Medication List - Last Reconciled 03/01/24 by Josse Robles MD acetaminophen 650 mg (20.3 mL) PO TID PRN 30 days aspirin (Adult Aspirin Regimen) 81 mg PO DAILY 90 days atenolol 50 mg PO BID [bed rails as ordered As directed] blood sugar diagnostic (FreeStyle Lite Strips) test blood sugar three times a day cholecalciferol (vitamin D3) 25 mcg PO DAILY clonidine HCl 0.1 mg PO BID commode (bedside commode) Extra large bedside commode use As directed commode 3-in-1 commode chair cyanocobalamin (vitamin B-12) 1,000 mcg PO DAILY 90 days diaper,brief,adult,disposable (Select Disposable Briefs) Uses 3 per day As directed, Extra Large diltiazem HCl CD 180 mg PO DAILY [Disposable bed pads-uses 3/day As directed] [disposable body wipes Use As directed] disposable gloves Use As directed docusate sodium (DOK) 100 mg PO DAILY PRN 90 days escitalopram oxalate 10 mg PO DAILY PRN glipizide 5 mg PO BID 90 days hospital bed Full electric hospital bed with bilateral half rails hydralazine 50 mg (2 x 25 mg) PO TID 90 days losartan 50 mg PO BID metformin 1,000 mg PO BID 90 days metoclopramide HCl 5 mg PO DAILY omeprazole 20 mg PO DAILY polyethylene glycol 3350 (Miralax) 17 grams PO DAILY sennosides (Natural Senna Laxative) 8.6 mg PO BEDTIME simethicone 0.6 mL PO QID PRN 90 days spironolacton-hydrochlorothiaz 25-25 mg 0.5 tabs PO DAILY [standard wheelchair-extra Lg Use As directed] [Thickit use as directed] trazodone 50 mg PO BEDTIME PRN 90 days [tub transfer bench As directed] Tobacco use date assessed: 12/01/23 Dental Screening Dental Screen Date: 12/01/23 HPI PT HPI Details History of Present Illness - The patient is an 83-year-old female presenting with generalized weakness. - Reports persisting weakness with recent rehabilitation for stroke. - Continuation of leg weakness impacting ambulation despite prior therapy. - Occasional abdominal discomfort noted, previously frequent but now improved. - Management for GERD includes Omeprazole. - She experiences disrupted sleep with prolonged wakefulness after plow and boring machine tender awakenings. - Daytime napping might affect night-time sleep patterns. Review of Systems - Neurological: Reports sleep disturbances with night awakenings. - Gastrointestinal: Reports occasional abdominal discomfort. Plan I will prescribe in-home physiotherapy to help address the patient's generalized weakness, with emphasis on functional and gait training. This home therapy is expected to somewhat assist with her mobility issues, especially during the winter. Omeprazole is being reordered to manage her GERD symptoms effectively. Attention to her sleep patterns was discussed, including the impact of daytime napping on night-time sleep quality. Fasting blood glucose levels are within target range, continuing monitoring is recommended. Patient was informed and verbally consented to the use of an ambient scribe for clinic note documentation during this visit. Discussion Notes In discussion with the patient, I explained the potential benefits and limitations of in-home physiotherapy, emphasizing that while beneficial, it might not provide the same level of improvement as therapy conducted in a rehab center due to resource limitations. I confirmed the reorder of Omeprazole for her GERD management and clarified general inquiries about her prescription refills and pharmacy options. Sleep disturbances were reviewed, noting that addressing daytime activity and routine could improve her sleep quality at night. We renewed the current management discussion about monitoring blood glucose levels, and reinforced lifestyle adjustments relevant to managing her condition. Patient Instructions - Begin in-home physiotherapy sessions for strength training and mobility. - Continue Omeprazole as prescribed for GERD management. - Monitor fasting blood sugar levels regularly. - Try to limit daytime napping to improve nighttime sleep quality. - Report any significant changes or worsening of symptoms. [facility] Medical History CVA (cerebral vascular accident) Iron deficiency Low hemoglobin Constipation by delayed colonic transit Gastroparesis Bladder disorder Anxiety, generalized Hypertension, essential Diabetes 1.5, managed as type 2 Surgical History No pertinent past surgical history Family History Father No problems noted. Mother No problems noted. Brother Diabetes Sister Diabetes Social History Household Members: Children Housing: House Are you a primary healthcare corporate account director to a significant other at home: No Do you presently have visiting nurse or other home services: Yes (physical therapy) Alcohol intake: never Patient Tobacco Use Status: Never used Tobacco e-Cigarette/Vaping Use: Never Used service: No Current occupational status: retired Cognitive needs: No Hearing needs: No Vision needs: Yes Questionnaire Thrive Questionnaire Date Thrive assessed: 11/18/23 RICHARD-7 AMB Questionnaire RICHARD-7 Date RICHARD - 7 assessed: 11/03/23 Source: Developed by Drs. Familia Weaver, Sheri Munoz, Medhat Loza and colleagues, with an educational kyung from [employer]. Physical exam (Primary Care) Tobacco/Smoking Status: Tobacco use Status Tobacco use date assessed 12/01/23 03/01/24 09:06 Patient Tobacco Use Status Never used Tobacco 03/01/24 09:06 e-Cigarette/Vaping Use Never Used 03/01/24 09:06 Thrive Assessment: Date of Thrive Assessment Date Thrive assessed 11/18/23 03/01/24 09:06 Telehealth Telehealth Telehealth Platform: [facility] Location of provider rendering services: practice address Location of patient: address on file Patient Identification confirmed using: Name, : Yes Telehealth method: video Patient verbally consented to treatment: Yes Patient verbally consented to billing insurance company: Yes Patient informed of any privacy concerns related to visit: Yes Minutes spent on Phone/Video with Pt.: 17 Coding Level of Care Code Tele Est Pt Level 3 (41560) Diagnoses Left hemiparesis G81.94 Bedridden Z74.01 Wheelchair dependence Z99.3 Frail elderly R54 Arthritis of knee M17.10 Weakness R53.1 Difficulty walking R26.2 Assessment & Plan Assessment & Plan (1) Left hemiparesis: Code(s): G81.94 - Hemiplegia, unspecified affecting left nondominant side Category: Medical (2) Bedridden: Code(s): Z74.01 - Bed confinement status Category: Medical (3) Wheelchair dependence: Code(s): Z99.3 - Dependence on wheelchair Category: Medical (4) Frail elderly: Code(s): R54 - Age-related physical debility Category: Medical (5) Arthritis of knee: Code(s): 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, unspecified knee Category: Medical (6) Weakness: Code(s): R53.1 - Weakness Category: Medical (7) Difficulty walking: Code(s): R26.2 - Difficulty in walking, not elsewhere classified Category: Medical Plan History of Present Illness - The patient is an 83-year-old female presenting with generalized weakness. - Reports persisting weakness with recent rehabilitation for stroke. - Continuation of leg weakness impacting ambulation despite prior therapy. - Occasional abdominal discomfort noted, previously frequent but now improved. - Management for GERD includes Omeprazole. - She experiences disrupted sleep with prolonged wakefulness after plow and boring machine tender awakenings. - Daytime napping might affect night-time sleep patterns. Review of Systems - Neurological: Reports sleep disturbances with night awakenings. - Gastrointestinal: Reports occasional abdominal discomfort. Plan I will prescribe in-home physiotherapy to help address the patient's generalized weakness, with emphasis on functional and gait training. This home therapy is expected to somewhat assist with her mobility issues, especially during the winter. Omeprazole is being reordered to manage her GERD symptoms effectively. Attention to her sleep patterns was discussed, including the impact of daytime napping on night-time sleep quality. Fasting blood glucose levels are within target range, continuing monitoring is recommended. Patient was informed and verbally consented to the use of an ambient scribe for clinic note documentation during this visit. Discussion Notes In discussion with the patient, I explained the potential benefits and limitations of in-home physiotherapy, emphasizing that while beneficial, it might not provide the same level of improvement as therapy conducted in a rehab center due to resource limitations. I confirmed the reorder of Omeprazole for her GERD management and clarified general inquiries about her prescription refills and pharmacy options. Sleep disturbances were reviewed, noting that addressing daytime activity and routine could improve her sleep quality at night. We renewed the current management discussion about monitoring blood glucose levels, and reinforced lifestyle adjustments relevant to managing her condition. Patient Instructions - Begin in-home physiotherapy sessions for strength training and mobility. - Continue Omeprazole as prescribed for GERD management. - Monitor fasting blood sugar levels regularly. - Try to limit daytime napping to improve nighttime sleep quality. - Report any significant changes or worsening of symptoms. Orders: Referrals [facility] Referral G81.94 - Hemiplegia, unspecified affecting left nondominant side, 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, unspecified knee, R26.2 - Difficulty in walking, not elsewhere classified, R53.1 - Weakness, R54 - Age-related physical debility, Z74.01 - Bed confinement status, Z99.3 - Dependence on wheelchair Medications: Refilled omeprazole 20 mg PO DAILY 90 caps 3RF Epigastric pain/dyspepsia blood sugar diagnostic (FreeStyle Lite Strips) test blood sugar three times a day 200 ea 3RF E13.9 - Other specified diabetes mellitus without complications
== END 2024-03-01 10:24 | disposition home or self-care (01) ==
LOC: HO.HMCC 09:05
PROVIDERS: PCP Internal Medicine; Visit Provider Internal Medicine
DX: G81.94 Hemiplegia, unspecified affecting left nondominant side (principal); Z74.01 Bed confinement status; Z99.3 Dependence on wheelchair; M17.0 Bilateral primary osteoarthritis of knee

== ENCOUNTER 2024-03-27 14:00 | Outpatient (REF) | payer MEDICAID, SELFPAY ==
--- OUTSIDE RECORDS SUMMARY | 2024-03-27 16:09 | XMS_ITS | Encounter Summary ---
Author Organization [facility] Address [address] [place] [address] Phone Care Team Providers Care Corporate Attorney Name Role Phone Josse Robles MD Primary Care Provider [phone] Encounter Details Date Type Department Care Team (Late st Contact Info) Description 04/20/2021 Telephone [facility] [address] [place] [address] Darius Alexander MD Social History Tobacco Use Types Packs/Day Years Used Date Smoking Tobacco: Never Smokeless Tobacco: Never Alcohol Use Standard Drinks/Week Comments No 0 (1 standard drink = 0.6 oz pur e alcohol) Comments Unknown Sex and Gender Information Value Date Recorded Sex Assigned at Not on file Legal Sex Female 5:01 PM EST Gender Identity Not on file Sexual Orientation Not on file documented as of this encounter Miscellaneous Notes * Telephone Encounter - Aidee Davenport - 04/20/2021 11:40 AM EST Refill send to provider for approval * Telephone Encounter - Lupe Francisco - 04/20/2021 11:20 AM EST Pts son called, she needs a refill for atenolol. Please send to [facility] on [address] Thank you documented in this encounter Plan of Treatment Not on file documented as of this encounter Visit Diagnoses Not on filedocumented in this encounter Care Teams Corporate Attorney Relationship Specialty Start Date End Date Josse Robles MD [address] [place] [id number] PCP - General 03/10/20 documented as of this encounter
--- OUTSIDE RECORDS SUMMARY | 2024-03-27 16:09 | XMS_ITS | Clinical Summary ---
Author Organization [facility] Address [address] [facility] [address] [place] [address] Phone Care Team Providers Care Dye Stand Loader Name Role Phone Josse Robles MD Primary Care Provider [phone] Allergies No known active allergies Medications aspirin (ST FARZANA) 81 MG EC tablet Take 1 tablet by mouth 1 (one) time each day Active glipiZIDE (GLUCOTROL) 5 MG tablet Take 1 tablet by mouth 2 (two) times a day Active metFORMIN (GLUCOPHAGE) 1000 MG tablet Take 1 tablet by mouth 2 (two) times a day Active omeprazole OTC (PriLOSEC OTC) 20 MG EC tablet Take 1 tablet by mouth 1 (one) time each day Active D3-1000 25 MCG (1000 UT) capsule Take 1,000 Units by mouth 1 (one) time each day 1 Active Cyanocobalamin 1000 MCG/ML kit 1,000 mcg 7 Active amLODIPine (NORVASC) 10 MG tablet Take 10 mg by mouth 1 (one) time each day 1 Active tolterodine (DETROL) 2 MG tablet Take 1 tablet (2 mg total) by mouth in the morning and 1 tablet (2 mg total) in the evening. 60 tablet 2 2 Active dilTIAZem CD (CARDIZEM CD) 180 MG 24 hr capsule TAKE 1 CAPSULE BY MOUTH EVERY DAY 90 capsule 3 2 Active hydroCHLOROthiazi de 12.5 MG tablet Take 1 tablet (12.5 mg total) by mouth 1 (one) time each day 30 tablet 11 2 Active losartan (COZAAR) 50 MG tablet TAKE 1 TABLET(50 MG) BY MOUTH IN THE MORNING AND IN THE EVENING 180 tablet 3 3 Active docusate sodium (COLACE) 100 MG capsule Take 1 capsule (100 mg total) by mouth 1 (one) time each day 90 capsule 2 3 Active cloNIDine (CATAPRES) 0.2 MG tablet TAKE 1 TABLET(0.2 MG) BY MOUTH EVERY DAY 30 tablet 3 3 Active atenolol (TENORMIN) 50 MG tabletIndications :Essential hypertension TAKE 1 TABLET(50 MG) BY MOUTH IN THE MORNING AND IN THE EVENING 60 tablet 5 3 Active Active Problems Problem Noted Date Diagnosed Date Anxiety 03/24/2021 Hypercholesterolemia 03/24/2021 Mediastinal mass 03/24/2021 Osteoarthritis 03/24/2021 Diabetes mellitus 01/14/2021 Chronic kidney disease stage 1 04/23/2020 Essential hypertension 04/23/2020 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/23/2020 Proteinuria 04/23/2020 Osteoarthritis of right knee joint 02/27/2010 Immunizations Name Administration Dates Next Due Pneumococcal Conjugate 13-Valent 03/21/2016 Family History Relation Status Comments Father Unknown Mother Unknown Social History Tobacco Use Types Packs/Day Years Used Date Smoking Tobacco: Never Smokeless Tobacco: Never Alcohol Use Standard Drinks/Week Comments No 0 (1 standard drink = 0.6 oz pur e alcohol) Comments Unknown Sex and Gender Information Value Date Recorded Sex Assigned at Not on file Legal Sex Female 5:01 PM EST Gender Identity Not on file Sexual Orientation Not on file Last Filed Vital Signs Vital Sign Reading Time Taken Comments Blood Pressure 130/60 06/10/2022 3:52 PM EDT Pulse 71 06/10/2022 3:52 PM EDT Temperature - - Respiratory Rate - - Oxygen Saturation 96% 06/10/2022 3:52 PM EDT Inhaled Oxygen Concentration - - Weight 67.6 kg (149 lb) 06/10/2022 3:52 PM EDT Height 160 cm (5' 3 ) 06/10/2022 3:52 PM EDT Body Mass Index 26.39 06/10/2022 3:52 PM EDT Plan of Treatment Health Maintenance Due Date Last Done Comments Pneumococcal Vaccine: 65+ Ye ars (2 of 2 - PPSV23 or PCV20) 05/16/2016 03/21/2016 Diabetes: Hemoglobin A1C 01/13/2021 Diabetes: Ophthalmology Exam 01/13/2021 Diabetes: Pedal Pulse Checked 01/13/2021 Diabetes: Sensory Foot Exam 01/13/2021 Diabetes: Visual Foot Exam 01/13/2021 Influenza Vaccine (#1) 2023 Hepatitis B Vaccine Aged Out No longe r eligible based on patient's age to complete this topic Insurance [place] Care Teams Dye Stand Loader Relationship Specialty Start Date End Date Josse Robles MD [address] [place] [id number] PCP - General 03/10/20
[2024-03-27 16:18] LABS: Appearance Urine Turbid; Color Urine Yellow; Glucose Urine UA Negative (Negative); Leukocyte Esterase Urine Large (3+) (Negative); Nitrite Urine Negative (Negative); PH 5.5 (5.0-9.0); Specific Gravity - Urine 1.015 (1.005-1.025); UMIC TRIGGER UACC YES; Urine Blood Negative (Negative); Urine Ketones Negative (Negative); Urine Protein 30 (1+) mg/dL (Neg-Trace)
[2024-03-27 16:41] LABS: Bacteria Urine 4+ (None Seen); Hyaline Casts Urine 0-2 /LPF (0-2); RBC Urine 0-2 /HPF (0-2); UACC Culture Trigger YES; WBC Urine >50 /HPF (0-5)
== END 2024-03-27 14:01 | disposition home or self-care (01) ==
LOC: HO.HMGCLNP 14:00
PROVIDERS: PCP Internal Medicine; Visit Provider Internal Medicine
DX: R82.90 Unspecified abnormal findings in urine (principal); R34 Anuria and oliguria
CPT/HCPCS: 81001; 87086; 87088; 87186

== ENCOUNTER 2024-05-14 14:12 | Outpatient (REF) | payer MEDICAID, SELFPAY ==
[2024-05-14 14:32] LABS: Hemoglobin 8.7 g/dl (12.0-16.0); Mean Corpuscular HGB Conc 31.1 g/dl (31.0-35.0); Mean Corpuscular Hemoglobin 22.4 pg (27.0-33.0); Mean Corpuscular Volume 72.2 fL (80.0-98.0); Mean Platelet Volume 8.9 fL (9.4-12.3); Platelet Count 511 X10*3/uL (160-400); Red Blood Count 3.88 X10*6/uL (4.20-5.50); Red Cell Distribution Width 17.8 % (11.0-16.0); White Blood Count 6.5 X10*3/uL (4.8-10.8)
[2024-05-14 14:58] LABS: Anion Gap 14 (12-20); Blood Urea Nitrogen 11 mg/dL (9-16); Calcium 9.9 mg/dL (8.4-10.2); Carbon Dioxide 24 mmol/L (22-29); Chloride 101 mmol/L (96-108); Estimated Glomerular Filt Rate > 60; Glucose Random 160 mg/dL (60-115); Sodium 135 mmol/L (135-145)
== END 2024-05-14 14:13 | disposition home or self-care (01) ==
LOC: HO.LAB 14:12
PROVIDERS: Absent Provider Internal Medicine; PCP Internal Medicine; Visit Provider Internal Medicine Hypertension Specialist
DX: I10 Essential (primary) hypertension (principal)
CPT/HCPCS: 36415; 80048; 85027

== ENCOUNTER 2024-05-16 12:00 | Outpatient (AMB) | payer MEDICAID, SELFPAY ==
[2024-05-16 12:09] VITALS: BP 150/68; PULSE 79; O2SAT 96
--- NOTE | 2024-05-16 12:09 | HO.NEPHOV ---
Vital Signs 05/16/24 12:09 Height 5 ft BP 150/68 H Blood Pressure Location Rt brachial Position Sitting Pulse 79 Pulse Source Pulse Oximeter Pulse Oximetry (%) 96 Oxygen Delivery Method Room Air Intake Visit Reasons: 4 mo follow up/ LVM Pulmonology Technician Required: No Accompanied by: Son Allergies simvastatin Allergy (Unknown, Verified 05/16/24 12:10) shortness of breath Medication List - Last Reconciled 05/16/24 by Darius Alexander MD acetaminophen 650 mg (20.3 mL) PO TID PRN 30 days Alcohol Prep Pads (alcohol swabs) 1 pad topical TID NS alprazolam (Xanax) 0.5 mg PO BEDTIME aspirin (Adult Aspirin Regimen) 81 mg PO DAILY 90 days atenolol 50 mg PO BID [bed rails as ordered As directed] blood sugar diagnostic (FreeStyle Lite Strips) test blood sugar three times a day cholecalciferol (vitamin D3) 25 mcg PO DAILY clonidine HCl 0.1 mg PO BID commode (bedside commode) Extra large bedside commode use As directed commode 3-in-1 commode chair cyanocobalamin (vitamin B-12) 1,000 mcg PO DAILY 90 days diaper,brief,adult,disposable (Select Disposable Briefs) Uses 3 per day As directed, Extra Large diltiazem HCl CD 180 mg PO DAILY [Disposable bed pads-uses 3/day As directed] [disposable body wipes Use As directed] disposable gloves Use As directed docusate sodium (DOK) 100 mg PO DAILY PRN 90 days escitalopram oxalate 10 mg PO DAILY PRN glipizide 5 mg PO BID 90 days hospital bed Full electric hospital bed with bilateral half rails hydralazine 50 mg (2 x 25 mg) PO TID 90 days lancets (FreeStyle Lancets) check blood sugar 3 times daily as directed losartan 50 mg PO BID metformin 1,000 mg PO BID 90 days metoclopramide HCl 5 mg PO DAILY nitrofurantoin monohyd/m-cryst 100 mg (Macrobid) 100 mg PO Q12H 7 days omeprazole 20 mg PO DAILY polyethylene glycol 3350 (Miralax) 17 grams PO DAILY sennosides (Natural Senna Laxative) 8.6 mg PO BEDTIME simethicone 0.6 mL PO QID PRN 90 days spironolacton-hydrochlorothiaz 25-25 mg 0.5 tabs PO DAILY [standard wheelchair-extra Lg Use As directed] [Thickit use as directed] trazodone 50 mg PO BEDTIME PRN 90 days [tub transfer bench As directed] HPI Comments Details: Elderly woman with a history of resistant hypertension Recently hospitalized at [facility]. She probably had a TIA. During workup she was found to have a mediastinal mass. According to her son she has had this mass for almost 10-15 years however the recent scan shows an increase in the size. The mediastinal mass measures about 9 cm. The family does not want to proceed with any further workup. 01/11/2024. Here for follow-up. Accompanied by family members. Home blood pressure readings have been elevated. 05/16/24 Home BP fluctuates Minimal use of Clonidine due to sleepiness Has constipation on and off. [facility] Medical History CVA (cerebral vascular accident) Iron deficiency Low hemoglobin Constipation by delayed colonic transit Gastroparesis Bladder disorder Anxiety, generalized Hypertension, essential Diabetes 1.5, managed as type 2 Surgical History No pertinent past surgical history Family History Father No problems noted. Mother No problems noted. Brother Diabetes Sister Diabetes Social History Household Members: Children Housing: House Are you a primary district manager primary care sales to a significant other at home: No Do you presently have visiting nurse or other home services: Yes (physical therapy) Alcohol intake: never Patient Tobacco Use Status: Never used Tobacco e-Cigarette/Vaping Use: Never Used service: No Current occupational status: retired Cognitive needs: No Hearing needs: No Vision needs: Yes Physical Exam Vital Signs: Last Vital Signs Pulse 79 05/16/24 12:09 BP 150/68 H 05/16/24 12:09 Pulse Ox 96 05/16/24 12:09 Oxygen Delivery Method Room Air 05/16/24 12:09 Neck Neck: Yes supple Resp Auscultation: clear to auscultation bilaterally Cardio Palpation: no palpable S3 Heart sounds: no rubs GI Palpation (GI): Soft to palpation Auscultation: normal bowel sounds Neuro Motor exam (neuro): no asterixis Results Reviewed Nephrology Results: Hgb 8.7 g/dl (12.0-16.0) L 05/14/24 WBC 6.5 X10*3/uL (4.8-10.8) 05/14/24 Plt Count 511 X10*3/uL (160-400) H 05/14/24 Sodium 135 mmol/L (135-145) 05/14/24 Potassium 4.0 mmol/L (3.3-5.1) 05/14/24 Chloride 101 mmol/L (96-108) 05/14/24 Carbon Dioxide 24 mmol/L (22-29) 05/14/24 BUN 11 mg/dL (9-16) 05/14/24 Creatinine 0.62 mg/dL (0.5-1.4) 05/14/24 Calcium 9.9 mg/dL (8.4-10.2) 05/14/24 Urine Protein 30 (1+) mg/dL (Neg-Trace) H 03/27/24 Assessment & Plan Assessment & Plan (1) Iron deficiency: Comment: Taking ferrous sulfate once daily Code(s): E61.1 - Iron deficiency Category: Medical (2) Hypertension, essential: Code(s): I10 - Essential (primary) hypertension Category: Medical (3) Uncontrolled hypertension: Code(s): I10 - Essential (primary) hypertension Category: Medical (4) Microcytic hypochromic anemia: Code(s): D50.9 - Iron deficiency anemia, unspecified Category: Medical Plan Elderly woman with resistant hypertension. History of CVA Avoid hypotensive episodes. All medications reviewed. Unable to take clonidine due to increased sleepiness. Increase hydralazine up to 75 mg 3 times a day. Use clonidine 0.1 mg p.r.n. if systolic blood pressure more than 160 mm Hg. Significant anemia. In the past she had iron-deficiency. Unable to tolerate oral iron tablets. I will arrange for intravenous iron Orders: Orders Vitamin B12 and Folate 05/16/24 E61.1 - Iron deficiency Ferritin 05/16/24 E61.1 - Iron deficiency IRON PROFILE 05/16/24 E61.1 - Iron deficiency Referrals Infusion Center Notification E61.1 - Iron deficiency Infusion Center Notification E61.1 - Iron deficiency Medications: Changed From hydralazine 50 mg (2 x 25 mg) PO TID 90 days 540 tabs 1RF To hydralazine 75 mg (3 x 25 mg) PO TID 810 tabs 1RF 90 days Refilled losartan 50 mg PO BID 180 tabs 1RF Coding Level of Care Code Est Pt Level 4 (96179) Diagnoses Iron deficiency E61.1 Hypertension, essential I10 Uncontrolled hypertension I10 Microcytic hypochromic anemia D50.9
== END 2024-05-16 13:41 | disposition home or self-care (01) ==
LOC: HO.HKAS 12:01
PROVIDERS: PCP Internal Medicine; Visit Provider Internal Medicine Hypertension Specialist
DX: E61.1 Iron deficiency (principal); I10 Essential (primary) hypertension
CPT/HCPCS: 99214

== ENCOUNTER → 2024-05-16 12:00 | Outpatient (BNVA) | payer MEDICAID, SELFPAY | PROVIDERS: PCP Internal Medicine; Visit Provider Internal Medicine Hypertension Specialist | DX: I1A.0 Resistant hypertension (principal); D50.9 Iron deficiency anemia, unspecified | CPT/HCPCS: 99212 ==

== ENCOUNTER 2024-05-25 12:17 | Outpatient (AMB) | payer MEDICAID, SELFPAY ==
[2024-05-25 12:30] VITALS: BP 132/70; PULSE 79; O2SAT 97
--- NOTE | 2024-05-25 12:30 | A.OFFPC_ITS ---
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 Required: No Accompanied by: Self / Same As Patient Allergies simvastatin Allergy (Unknown, Verified 05/25/24 12:30) shortness of breath Medication List - Last Reconciled 05/25/24 by Josse Robles MD acetaminophen 650 mg (20.3 mL) PO TID PRN 30 days Alcohol Prep Pads (alcohol swabs) 1 pad topical TID NS alprazolam (Xanax) 0.5 mg PO BEDTIME aspirin (Adult Aspirin Regimen) 81 mg PO DAILY 90 days atenolol 50 mg PO BID [bed rails as ordered As directed] blood sugar diagnostic (FreeStyle Lite Strips) test blood sugar three times a day cholecalciferol (vitamin D3) 25 mcg PO DAILY clonidine HCl 0.1 mg PO BID commode (bedside commode) Extra large bedside commode use As directed commode 3-in-1 commode chair cyanocobalamin (vitamin B-12) 1,000 mcg PO DAILY 90 days diaper,brief,adult,disposable (Select Disposable Briefs) Uses 3 per day As directed, Extra Large diltiazem HCl CD 180 mg PO DAILY [Disposable bed pads-uses 3/day As directed] [disposable body wipes Use As directed] disposable gloves Use As directed docusate sodium (DOK) 100 mg PO DAILY PRN 90 days escitalopram oxalate 10 mg PO DAILY PRN glipizide 5 mg PO BID 90 days hospital bed Full electric hospital bed with bilateral half rails hydralazine 75 mg (3 x 25 mg) PO TID 90 days lancets (FreeStyle Lancets) check blood sugar 3 times daily as directed losartan 50 mg PO BID metformin 1,000 mg PO BID 90 days metoclopramide HCl 5 mg PO DAILY nitrofurantoin monohyd/m-cryst 100 mg (Macrobid) 100 mg PO Q12H 7 days omeprazole 20 mg PO DAILY polyethylene glycol 3350 (Miralax) 17 grams PO DAILY sennosides (Natural Senna Laxative) 8.6 mg PO BEDTIME simethicone 0.6 mL PO QID PRN 90 days spironolacton-hydrochlorothiaz 25-25 mg 0.5 tabs PO DAILY [standard wheelchair-extra Lg Use As directed] [Thickit use as directed] trazodone 50 mg PO BEDTIME PRN 90 days [tub transfer bench As directed] Tobacco use date assessed: 05/25/24 Fall risk assessment: No Falls in past year Last assessed Fall Risk: 05/25/24 Dental Screening Dental Screen Date: 05/25/24 Did you have a dental visit in the last 12 months?: Yes Did you have a dental problem in the last 6 months where you did not have access to dental care?: No Was dental information given to patient?: Patient has dentist HPI F/U HPI Details The patient is an 83-year-old female with a history of recurrent strokes, hypertension, obesity, weakness, chronic cough, chronic GERD, anxiety, hypertension, established with Nephrology Vitamin-D deficiency, urine incontinence, anxiety, diabetes, chronic stomach pains due to gas, chronic constipation, difficulty sleeping came in today for her regular follow-up appointment Patient have left hemiparesis and slurred speech she is totally dependent on family for care, wheelchair dependent she also have a mediastinal mass that she does not want to pursue workup for Patient has also declined endoscopy and colonoscopy in the past Patient has chronic cough, and there is difficulty with phlegm expulsion due to potential muscle weakness. - Pulmonary therapy is discussed as a po ssible aid for this condition, but patient declined . - Iron deficiency anemia continues to be a concern despite past interventions, with recent follow-ups bringing no issues. Iron infusion ordered by Nephrology - The patient's past evaluations reveale d elevated Vitamin B12 levels, but current control measures are not presently employed. - The patient is avoiding vitamin D supp lementation due to stress, with no current interventions agreed upon . - Blood tests show normal kidney functio ns were stable at the previous evaluation. Patient Instructions - Consider pulmonary physical therapy to help with clearing phlegm if interested. - Monitor any changes in your health or how you are feeling and report any signi ficant issues. - wait for iron infusion therapy appoint ment, patient has seen Dr. Voss in the past and has gotten iron infusion she can not take oral iron due to stomach pains - Continue to monitor stress levels and consider discussing the barriers to taking vitamin D supplementation with supportive individuals. - Consider avoiding cough syrups unless advised by healthcare, to prevent discomfort. Review of Systems - General: No fever no chills - Neurological: No headaches no dizziness - Ear nose throat: No sore throat no hearing difficulty no ear pain - Cardiovascular: No syncope, no chest pain, no palpitations - Gastrointestinal: No nausea vomiting or diarrhea Physical Exam General: No acute distress, elderly female sitting on wheelchair with slurred speech but family is able to understand her she is here with her 2 daughter in laws HEENT: No acute findings Neck: Supple Respiratory system: Lungs sound clear, clear and good Cardiovascular: S1-S2 regular in rate and rhythm Gastrointestinal: No pain bowel sounds positive Extremities: No new findings, no edema APPEALS SPECIALIST: Alert awake oriented x3 overall muscle weakness but able to move all extremities Skin: Normal turgor, PFSH Medical History CVA (cerebral vascular accident) Iron deficiency Low hemoglobin Constipation by delayed colonic transit Gastroparesis Bladder disorder Anxiety, generalized Hypertension, essential Diabetes 1.5, managed as type 2 Surgical History No pertinent past surgical history Family History Father No problems noted. Mother No problems noted. Brother Diabetes Sister Diabetes Social History Household Members: Children Housing: House Are you a primary critical care technician to a significant other at home: No Do you presently have visiting nurse or other home services: Yes (physical therapy) Alcohol intake: never Patient Tobacco Use Status: Never used Tobacco e-Cigarette/Vaping Use: Never Used service: No Current occupational status: retired Cognitive needs: No Hearing needs: No Vision needs: Yes Questionnaire PHQ-9 Over the last 2 weeks, how often have you been bothered by any of the following problems? 1. Little interest or pleasure in doing things: more than half the days 2. Feeling down, depressed, or hopeless: more than half the days 3. Trouble falling or staying asleep, or sleeping too much: not at all 4. Feeling tired or having little energy: nearly every day 5. Poor appetite or overeating: not at all 6. Feeling bad about yourself - or that you are a failure or have let yourself or your family down: not at all 7. Trouble concentrating on things, such as reading the newspaper or watching television: nearly every day 8. Moving or speaking so slowly that other people could have noticed. Or the opposite - being so fidgety or restless that you have been moving around a lot more than usual: nearly every day 9. Thoughts that you would be better off or of hurting yourself in some way: not at all Total score: 13 Depression Screening Interpretation: Positive Depression Screening Follow-up: Existing condition and In treatment Depression Screening Done: Yes 92536 - PHQ-9 Billing: Yes Source: Developed by Drs. Familia Weaver, Sheri Munoz, Medhat Loza and colleagues, with an educational kyung from [employer]. Thrive Questionnaire Date Thrive assessed: 05/25/24 I am a: Parent/Caregiver What is your living situation today?: I have a steady place to live Within the past 12 months, did the food you bought not last and you didn't have the money to get more?: Never true Within the past 12 months, did you worry whether your food would run out before you got money to buy more?: Never true Do you have trouble paying for medicines?: No Do you have trouble getting transportation to medical appointments?: No Do you have trouble paying your heating and electricity bill?: No Do you have trouble taking care of your child, family member or friend?: I choose not to answer this question Do you have trouble with day-to-day activities such as bathing, preparing meals, shopping, managing finances, etc.?: I choose not to answer this question Are you currently unemployed and looking for a job?: I choose not to answer this question Are you interested in more education?: I choose not to answer this question Please select the resources that you would like help with: None Currently or been in a relationship where the following occur: I choose not to answer THRIVE Score: 0 AUDIT C Alcohol Use Questionnaire (AUDIT-C) 1. How often do you have a drink containing alcohol?: Never 3. How often do you have six or more drinks on one occasion?: Never Total Score: 0 Score Reviewed/Action Taken: Yes RICHARD-7 AMB Questionnaire RICHARD-7 Date RICHARD - 7 assessed: 05/25/24 Feeling nervous, anxious, or on edge: 1 = Several days Not being able to stop or control worryin = Nearly every day Worrying too much about different things: 1 = Several days Trouble relaxin = More than half the days Being so restless that it is hard to sit still: 0 = Not at all Becoming easily annoyed or irritable: 2 = More than half the days Feeling afraid as if something awful might happen: 0 = Not at all Total RICHARD-7 score (0-4 normal; 5-9 mild; 10-14 moderate; 15-21 severe): 9 Source: Developed by Drs. Familia Weaver, Sheri Munoz, Medhat Loza and colleagues, with an educational kyung from [employer]. RICHARD-7 Assessment Billing RICHARD-7 Assessment Tool: RICHARD-7 Assessment 33781 Physical exam (Primary Care) Vital Signs: Last Vital Signs Pulse 79 05/25/24 12:30 BP 132/70 05/25/24 12:30 Pulse Ox 97 05/25/24 12:30 Oxygen Delivery Method Room Air 05/25/24 12:30 Tobacco/Smoking Status: Tobacco use Status Tobacco use date assessed 05/25/24 05/25/24 12:35 Patient Tobacco Use Status Never used Tobacco 05/25/24 12:35 e-Cigarette/Vaping Use Never Used 05/25/24 12:35 PHQ-9: PHQ-9 Score PHQ-9: Total score 13 05/25/24 13:05 Depression Screening Interpretation: Positive Depression Screening Follow-up: Existing condition and In treatment Thrive Assessment: Date of Thrive Assessment Date Thrive assessed 05/25/24 05/25/24 12:35 Currently or been in a relationship where the following occur: I choose not to answer Coding Level of Care Code Est Pt Level 5 (41799) Complex EM visit Add On G2211 Diagnoses Diabetes 1.5, managed as type 2 E13.9 Hypertension, essential I10 Anxiety, generalized F41.1 Bladder disorder N32.9 Iron deficiency E61.1 Low hemoglobin D64.9 Microcytic hypochromic anemia D50.9 Elevated TSH R79.89 Vitamin B12 deficiency E53.8 Recurrent strokes I63.9 Left hemiparesis G81.94 Slurred speech R47.81 Wheelchair dependence Z99.3 Frail elderly R54 Mediastinal mass J98.59 Weakness R53.1 Gastroparesis K31.84 Constipation by delayed colonic transit K59.01 Additional Codes RICHARD-7 Assessment Billing - RICHARD-7 Assessment Tool: RICHARD-7 Assessment 76827 ([id number]) PHQ-9 - 41748 - PHQ-9 Billing: Yes ([id number]) Time Spent (min) 40 Assessment & Plan Assessment & Plan (1) Diabetes 1.5, managed as type 2: Code(s): E13.9 - Other specified diabetes mellitus without complications Category: Medical (2) Hypertension, essential: Code(s): I10 - Essential (primary) hypertension Category: Medical (3) Anxiety, generalized: Code(s): F41.1 - Generalized anxiety disorder Category: Medical (4) Bladder disorder: Code(s): N32.9 - Bladder disorder, unspecified Category: Medical (5) Iron deficiency: Comment: Taking ferrous sulfate once daily Code(s): E61.1 - Iron deficiency Category: Medical (6) Low hemoglobin: Code(s): D64.9 - Anemia, unspecified Category: Medical (7) Microcytic hypochromic anemia: Code(s): D50.9 - Iron deficiency anemia, unspecified Category: Medical (8) Elevated TSH: Code(s): R79.89 - Other specified abnormal findings of blood chemistry Category: Medical (9) Vitamin B12 deficiency: Comment: Vitamin B 12 Deficiency can be due to atrophic gastritis or celiac sprue. Of note celiac ab panel was negative 2 years ago. Code(s): E53.8 - Deficiency of other specified B group vitamins Category: Medical (10) Recurrent strokes: Code(s): I63.9 - Cerebral infarction, unspecified Category: Medical (11) Left hemiparesis: Code(s): G81.94 - Hemiplegia, unspecified affecting left nondominant side Category: Medical (12) Slurred speech: Code(s): R47.81 - Slurred speech Category: Medical (13) Wheelchair dependence: Code(s): Z99.3 - Dependence on wheelchair Category: Medical (14) Frail elderly: Code(s): R54 - Age-related physical debility Category: Medical (15) Mediastinal mass: Code(s): J98.59 - Other diseases of mediastinum, not elsewhere classified Category: Medical (16) Weakness: Code(s): R53.1 - Weakness Category: Medical (17) Gastroparesis: Code(s): K31.84 - Gastroparesis Category: Medical (18) Constipation by delayed colonic transit: Comment: Continue Colace daily and add MiraLax 2 to 3 times a week Code(s): K59.01 - Slow transit constipation Category: Medical Plan The patient is an 83-year-old female with a history of recurrent strokes, hypertension, obesity, weakness, chronic cough, chronic GERD, anxiety, hypertension, established with Nephrology Vitamin-D deficiency, urine incontinence, anxiety, diabetes, chronic stomach pains due to gas, chronic constipation, difficulty sleeping, gastroparesis came in today for her regular follow-up appointment Patient have left hemiparesis and slurred speech she is totally dependent on family for care, wheelchair dependent she also have a mediastinal mass that she does not want to pursue workup for Patient has also declined endoscopy and colonoscopy in the past Patient has chronic cough, and there is difficulty with phlegm expulsion due to potential muscle weakness. - Pulmonary therapy is discussed as a possible aid for this condition, but patient declined . - Iron deficiency anemia continues to be a concern despite past interventions, with recent follow-ups bringing no issues. Iron infusion ordered by Nephrology - The patient's past evaluations revealed elevated Vitamin B12 levels, but current control measures are not presently employed. - The patient is avoiding vitamin D supplementation due to stress, with no current interventions agreed upon . - Blood tests show normal kidney functions were stable at the previous evaluation. Patient Instructions - Consider pulmonary physical therapy to help with clearing phlegm if interested. - Monitor any changes in your health or how you are feeling and report any significant issues. - wait for iron infusion therapy appointment, patient has seen Dr. Voss in the past and has gotten iron infusion she can not take oral iron due to stomach pains - Continue to monitor stress levels and consider discussing the barriers to taking vitamin D supplementation with supportive individuals. - Consider avoiding cough syrups unless advised by healthcare, to prevent discomfort. Orders: Orders Hemoglobin A1c Today D50.9 - Iron deficiency anemia, unspecified, D64.9 - Anemia, unspecified, E13.9 - Other specified diabetes mellitus without complications, E53.8 - Deficiency of other specified B group vitamins, E61.1 - Iron deficiency, F41.1 - Generalized anxiety disorder, I10 - Essential (primary) hypertension, I63.9 - Cerebral infarction, unspecified, N32.9 - Bladder disorder, unspecified, R79.89 - Other specified abnormal findings of blood chemistry Comprehensive Met. Panel Today D50.9 - Iron deficiency anemia, unspecified, D64.9 - Anemia, unspecified, E13.9 - Other specified diabetes mellitus without complications, E53.8 - Deficiency of other specified B group vitamins, E61.1 - Iron deficiency, F41.1 - Generalized anxiety disorder, I10 - Essential (primary) hypertension, I63.9 - Cerebral infarction, unspecified, N32.9 - Bladder disorder, unspecified, R79.89 - Other specified abnormal findings of blood chemistry LDL Cholesterol Direct Today D50.9 - Iron deficiency anemia, unspecified, D64.9 - Anemia, unspecified, E13.9 - Other specified diabetes mellitus without complications, E53.8 - Deficiency of other specified B group vitamins, E61.1 - Iron deficiency, F41.1 - Generalized anxiety disorder, I10 - Essential (primary) hypertension, I63.9 - Cerebral infarction, unspecified, N32.9 - Bladder disorder, unspecified, R79.89 - Other specified abnormal findings of blood chemistry Vitamin D 25-OH (D2 and D3) Today D50.9 - Iron deficiency anemia, unspecified, D64.9 - Anemia, unspecified, E13.9 - Other specified diabetes mellitus without complications, E53.8 - Deficiency of other specified B group vitamins, E61.1 - Iron deficiency, F41.1 - Generalized anxiety disorder, I10 - Essential (primary) hypertension, I63.9 - Cerebral infarction, unspecified, N32.9 - Bladder disorder, unspecified, R79.89 - Other specified abnormal findings of blood chemistry Complete Blood Count Auto Diff Today D50.9 - Iron deficiency anemia, unspecified, D64.9 - Anemia, unspecified, E13.9 - Other specified diabetes mellitus without complications, E53.8 - Deficiency of other specified B group vitamins, E61.1 - Iron deficiency, F41.1 - Generalized anxiety disorder, I10 - Essential (primary) hypertension, I63.9 - Cerebral infarction, unspecified, N32.9 - Bladder disorder, unspecified, R79.89 - Other specified abnormal findings of blood chemistry Vitamin B12 Today D50.9 - Iron deficiency anemia, unspecified, D64.9 - Anemia, unspecified, E13.9 - Other specified diabetes mellitus without complications, E53.8 - Deficiency of other specified B group vitamins, E61.1 - Iron deficiency, F41.1 - Generalized anxiety disorder, I10 - Essential (primary) hypertension, I63.9 - Cerebral infarction, unspecified, N32.9 - Bladder disorder, unspecified, R79.89 - Other specified abnormal findings of blood chemistry TSH reflex Free T4 Today D50.9 - Iron deficiency anemia, unspecified, D64.9 - Anemia, unspecified, E13.9 - Other specified diabetes mellitus without complications, E53.8 - Deficiency of other specified B group vitamins, E61.1 - Iron deficiency, F41.1 - Generalized anxiety disorder, I10 - Essential (primary) hypertension, I63.9 - Cerebral infarction, unspecified, N32.9 - Bladder disorder, unspecified, R79.89 - Other specified abnormal findings of blood chemistry Ferritin Today D50.9 - Iron deficiency anemia, unspecified, D64.9 - Anemia, unspecified, E13.9 - Other specified diabetes mellitus without complications, E53.8 - Deficiency of other specified B group vitamins, E61.1 - Iron deficiency, F41.1 - Generalized anxiety disorder, I10 - Essential (primary) hypertension, I63.9 - Cerebral infarction, unspecified, N32.9 - Bladder disorder, unspecified, R79.89 - Other specified abnormal findings of blood chemistry Medications: New pantoprazole 40 mg PO DAILY 90 tabs 3RF Discontinued omeprazole Discontinued Reason: Doctor's Order 20 mg PO DAILY 90 caps 3RF Epigastric pain/dyspepsia
== END 2024-05-25 13:02 | disposition home or self-care (01) ==
LOC: HO.HMCC 12:18
PROVIDERS: PCP Internal Medicine; Visit Provider Internal Medicine
DX: I10 Essential (primary) hypertension (principal); E13.9 Other specified diabetes mellitus without complications; I63.9 Cerebral infarction, unspecified; G81.94 Hemiplegia, unspecified affecting left nondominant side; N32.9 Bladder disorder, unspecified; F41.1 Generalized anxiety disorder; E61.1 Iron deficiency; D64.9 Anemia, unspecified; D50.9 Iron deficiency anemia, unspecified; R79.89 Other specified abnormal findings of blood chemistry; E53.8 Deficiency of other specified B group vitamins; R47.81 Slurred speech

== ENCOUNTER 2024-05-25 12:17 | Outpatient (REF) | payer MEDICAID, SELFPAY ==
[2024-05-25 16:23] LABS: MANUAL DIFF FLAG NO
[2024-05-25 16:30] LABS: Basophils Percent Auto 0.6 % (0-2); Eosinophils Absolute Auto 0.2 X10*3/uL (0.0-0.4); Eosinophils Percent Auto 2.3 % (0-4); Hematocrit 28.4 % (37.0-47.0); Hemoglobin 8.7 g/dl (12.0-16.0); Imm Gran Abs Auto 0.02 X10*3/uL (0.00-0.03); Imm Gran Pct Auto 0.3 % (0.0-0.4); Lymphocytes Absolute Auto 2.5 X10*3/uL (1.2-4.9); Lymphocytes Percent Auto 36.7 % (20-40); Mean Corpuscular HGB Conc 30.6 g/dl (31.0-35.0); Mean Corpuscular Hemoglobin 22.3 pg (27.0-33.0); Mean Corpuscular Volume 72.8 fL (80.0-98.0); Mean Platelet Volume 9.5 fL (9.4-12.3); Monocytes Absolute Auto 0.6 X10*3/uL (0.1-1.2); Monocytes Percent Auto 8.7 % (2-11); Neutrophils Absolute Auto 3.5 x10*3/uL (2.0-8.3); Neutrophils Percent Auto 51.4 % (45-73); Platelet Count 567 X10*3/uL (160-400); Red Cell Distribution Width 17.5 % (11.0-16.0); White Blood Count 6.9 X10*3/uL (4.8-10.8)
[2024-05-25 16:54] LABS: Estimated Average Glucose 123 mg/dL; Hemoglobin A1c % 5.9 % (<6.0)
[2024-05-25 17:25] LABS: Alanine Aminotransferase 6 U/L (0-31); Albumin Level 3.7 g/dL (3.5-5.0); Anion Gap 14 (12-20); Aspartate Amino Transferase 17 U/L (5-31); Bilirubin Total 0.7 mg/dL (0.0-1.0); Blood Urea Nitrogen 12 mg/dL (9-16); Calcium 9.9 mg/dL (8.4-10.2); Carbon Dioxide 24 mmol/L (22-29); Chloride 99 mmol/L (96-108); Estimated Glomerular Filt Rate > 60; Glucose Random 130 mg/dL (60-115); Potassium 4.4 mmol/L (3.3-5.1); Sodium 133 mmol/L (135-145); Total Protein 7.5 g/dL (6.5-8.0)
[2024-05-25 17:30] LABS: Vitamin B12 1094 pg/mL (200-900)
[2024-05-25 17:46] LABS: Alkaline Phosphatase 57 U/L (39-117); Ferritin 10 ng/mL (10-250); TSH reflex Free T4 1.82 uIU/mL (0.32-4.0)
[2024-05-26 08:28] LABS: LDL Cholesterol Direct 114 mg/dL (<100)
[2024-05-30 23:13] LABS: Vitamin D 25-OH, D2 <4 ng/mL; Vitamin D 25-OH, D3 50 ng/mL; Vitamin D 25-OH, Total 50 ng/mL (30-100)
== END 2024-05-25 12:18 | disposition home or self-care (01) ==
LOC: HO.HMGCLDS 12:17
PROVIDERS: PCP Internal Medicine; Visit Provider Internal Medicine
DX: E13.9 Other specified diabetes mellitus without complications (principal); I10 Essential (primary) hypertension; F41.1 Generalized anxiety disorder; N32.9 Bladder disorder, unspecified; D50.9 Iron deficiency anemia, unspecified; R79.89 Other specified abnormal findings of blood chemistry; E53.8 Deficiency of other specified B group vitamins; G81.94 Hemiplegia, unspecified affecting left nondominant side; R47.81 Slurred speech; R54 Age-related physical debility; J98.59 Other diseases of mediastinum, not elsewhere classified; R53.1 Weakness; K31.84 Gastroparesis; K59.01 Slow transit constipation; Z86.73 Personal history of transient ischemic attack (TIA), and cerebral infarction without residual deficits; Z79.899 Other long term (current) drug therapy; Z99.3 Dependence on wheelchair
CPT/HCPCS: 36415; 80053; 82306; 82607; 82728; 83036; 83721; 84443; 85025; 96127; 99212

== ENCOUNTER 2024-06-05 12:45 | Outpatient (RCR) | payer MEDICAID, SELFPAY ==
[2024-05-29 11:54] VITALS: BP 139/63; PULSE 78; RESP 18; TEMP 37.1; O2SAT 96
[2024-05-29] MEDS: Ferric Carboxymaltose 750 MG in 0.9 % Sodium Chloride 250 ML 265 MG IV (12:14)
[2024-05-29] MEDS: 0.9 % Sodium Chloride Flush 10 ML SYRINGE 5 ML IVFLUSH (13:22)
[2024-06-05 13:05] VITALS: BP 174/80; PULSE 72; RESP 14; TEMP 36.9
[2024-06-05] MEDS: Ferric Carboxymaltose 750 MG in 0.9 % Sodium Chloride 250 ML 265 MG IV (13:16)
[2024-06-05] MEDS: 0.9 % Sodium Chloride Flush 10 ML SYRINGE 5 ML IVFLUSH (14:26)
== END 2024-06-05 14:31 | disposition home or self-care (01) ==
LOC: HO.INF 12:45
PROVIDERS: Visit Provider Internal Medicine Hypertension Specialist
DX: E61.1 Iron deficiency (principal)
CPT/HCPCS: 96365; J1439

== ENCOUNTER 2024-06-21 16:52 | Outpatient (REF) | payer MEDICAID, SELFPAY ==
[2024-06-21 17:02] LABS: Appearance Urine Clear; Color Urine Yellow; Glucose Urine UA Negative (Negative); Leukocyte Esterase Urine Negative (Negative); Nitrite Urine Negative (Negative); PH 6.5 (5.0-9.0); Specific Gravity - Urine <= 1.005 (1.005-1.025); Urine Blood Negative (Negative); Urine Ketones Negative (Negative); Urine Protein Trace mg/dL (Neg-Trace)
--- OUTSIDE RECORDS SUMMARY | 2024-06-21 18:52 | XMS_ITS | Clinical Summary ---
Author Organization [facility] Address [address] [facility] [address] [place] [address] Phone Care Team Providers Care Machine Compositor Name Role Phone Josse Robles MD Primary Care Provider [phone] Allergies No known active allergies Medications aspirin [...] Osteoarthritis of right knee joint 02/27/2010 Immunizations Immunization Administration Dates Next Due Pneumococcal Conjugate 13-Valent [...] Due Date Last Done Comments Pneumococcal Vaccine: 50+ Ye ars (2 of 2 - PPSV23) 05/16/2016 03/21/2016 Diabetes: Hemoglobin A1C 01/13/2021 Diabetes: Ophthalmology Exam 01/13/2021 Diabetes: Pedal Pulse Checked 01/13/2021 Diabetes: Sensory Foot Exam 01/13/2021 Diabetes: Visual Foot Exam 01/13/2021 Influenza Vaccine (Season Ended) 2024 Pneumococcal Vaccine: Peds ( 0 to 5 Years) and At-Risk Patients (6 to 49 Years) Discontinued 03/21/2016 Hepatitis B Vaccine Aged Out No longe r eligible based on patient's age to complete this topic Insurance Medicaid [place] Member Subscriber Plan / Payer (Ef fective 2020-Present) Name:Bimal Bower Relation to Subscriber:Self Name:Bimal Bower Payer ID:Not on file Group ID:Not on file Type:Not on file Address: [address] Medicaid [place] Member Subscriber Plan / Payer (Ef fective 2020-Present) Name:Bimal Bower Relation to Subscriber:Self Name:Bimal Bower Payer ID:Not on file Group ID:Not on file Type:Not on file Address: [place] [id number] Care Teams Machine Compositor Relationship Specialty Start Date End Date Josse Robles MD [address] [place] [id number] [facility] - General 03/10/20
--- OUTSIDE RECORDS SUMMARY | 2024-06-21 18:52 | XMS_ITS | Encounter Summary ---
Author Organization [facility] Address [address] [place] [address] Phone Care Team Providers Care Cloth Bleaching Range Back Tender Name Role Phone Josse Robles MD Primary Care Provider [phone] Encounter Details Date Type Department Care Team (Late st Contact Info) Description 04/20/2021 Telephone [facility] [address] [place] [address] Darius Alexander MD Social History [...] a refill for atenolol. Please send to [facility] on [address] Thank you documented in this encounter Plan of Treatment Not on file documented as of this encounter Visit Diagnoses Not on filedocumented in this encounter Care Teams Cloth Bleaching Range Back Tender Relationship Specialty Start Date End Date Josse Robles MD [address] [place] [id number] PCP - General 03/10/20 documented as of this encounter
== END 2024-06-21 16:53 | disposition home or self-care (01) ==
LOC: HO.LNP 16:52
PROVIDERS: Visit Provider Internal Medicine
DX: R34 Anuria and oliguria (principal)
CPT/HCPCS: 81003

== ENCOUNTER 2024-08-24 15:11 | Outpatient (AMB) | payer MEDICAID, SELFPAY ==
--- NOTE | 2024-08-24 15:17 | A.OFFPC_ITS ---
Vital Signs 08/24/24 15:18 Height 5 ft BMI Reason not done Patient refused/unable BP 120/78 Blood Pressure Location Lt brachial Position Sitting Pulse 71 Pulse Source Pulse Oximeter Temp 97.8 F Temp Source Temporal Artery Scan Pulse Oximetry (%) 97 Oxygen Delivery Method Room Air Intake Visit Reasons: 3m follow up Accompanied by: daughter in law Allergies simvastatin Allergy (Unknown, Verified 08/24/24 15:20) shortness of breath Medication List - Last Reconciled 08/24/24 by Josse Robles MD acetaminophen 650 mg (20.3 mL) PO TID PRN 30 days Alcohol Prep Pads (alcohol swabs) 1 pad topical TID NS alprazolam 0.5 mg PO BEDTIME aspirin (Adult Aspirin Regimen) 81 mg PO DAILY 90 days atenolol 50 mg PO BID [bed rails as ordered As directed] blood sugar diagnostic (FreeStyle Lite Strips) test blood sugar three times a day clonidine HCl 0.1 mg PO BID commode (bedside commode) Extra large bedside commode use As directed commode 3-in-1 commode chair cyanocobalamin (vitamin B-12) 1,000 mcg PO DAILY 90 days Held on 07/28/23. Instructions: Doctor's Order diaper,brief,adult,disposable (Select Disposable Briefs) Uses 3 per day As directed, Extra Large diltiazem HCl CD 180 mg PO DAILY [Disposable bed pads-uses 3/day As directed] [disposable body wipes Use As directed] disposable gloves Use As directed docusate sodium (DOK) 100 mg PO DAILY PRN 90 days glipizide 5 mg PO BID 90 days hospital bed Full electric hospital bed with bilateral half rails hydralazine 75 mg (3 x 25 mg) PO TID lancets (FreeStyle Lancets) check blood sugar 3 times daily as directed losartan 50 mg PO BID metformin 1,000 mg PO BID 90 days metoclopramide HCl 5 mg PO DAILY Held on 11/03/23. Instructions: Doctor's Order pantoprazole 40 mg PO DAILY polyethylene glycol 3350 (Miralax) 17 grams PO DAILY sennosides (Natural Senna Laxative) 8.6 mg PO BEDTIME simethicone 0.6 mL PO QID PRN 90 days spironolacton-hydrochlorothiaz 25-25 mg 0.5 tabs PO DAILY [standard wheelchair-extra Lg Use As directed] [Thickit use as directed] trazodone 50 mg PO BEDTIME PRN 90 days [tub transfer bench As directed] Tobacco use date assessed: 08/24/24 Fall risk assessment: No Falls in past year Last assessed Fall Risk: 08/24/24 Dental Screening Dental Screen Date: 08/24/24 Did you have a dental visit in the last 12 months?: No Did you have a dental problem in the last 6 months where you did not have access to dental care?: No Was dental information given to patient?: Patient declined HPI 3m follow up HPI Details History - The patient is an 84-year-old female p resenting with Parkinson's like features and respiratory issues. having muscle stiffness and difficulty in movement. total dependent on house hold for her care I have placed Neurology referral for evaluation Patient has a history of multiple strokes as well - Respiratory issues: The patient is exp eriencing respiratory illness as well with chronic chest congestion and cough I have ordered x-ray today we will see if pulmonary therapy can be conducted by visiting nurses She is to start DuoNeb aerosol treatment Q 8 as needed . - Constipation and abdominal bloating: T he patient reports constipation, which is being managed with Gas-X and simethicone. Taking Tylenol for body aches and pains Patient sees Nephrology for the management of blood pressure Diabetes is controlled due to abdominal cramping I am stopping metformin She may continue glipizide 5 mg once a day, family was instructed to check fasting sugar and get back to me in a week Continue pantoprazole And laxatives Patient have developed pigmented rash both knees which is pruritic for that I have sent hydrocortisone 2.5% to be applied at night Patient Instructions - Continue taking prescribed medications as directed. - Monitor blood sugar levels and report any significant changes. - [facility] - Maintain current gastrointestinal medi cations to manage constipation. - chest x-ray to be done today Review of Systems - General: No fever no chills - Neurological: No headaches no dizziness - Ear nose throat: No sore throat no hearing difficulty no ear pain - Cardiovascular: No syncope, no chest pain, no palpitations Physical Exam General: No acute distress HEENT: No acute findings Neck: Supple Respiratory system: Able to talk in full sentences, no audible wheeze, rhonchi present right lung posteriorly Cardiovascular: S1-S2 regular in rate and rhythm, Gastrointestinal: No pain, bowel sounds positive Extremities: No new findings DEPARTMENT OF NATURAL RESOURCES OFFICER: Alert awake oriented x3 sitting in wheelchair Skin: Normal turgor, pigmentation noted both knees PFSH Medical History CVA (cerebral vascular accident) Iron deficiency Low hemoglobin Constipation by delayed colonic transit Gastroparesis Bladder disorder Anxiety, generalized Hypertension, essential Diabetes 1.5, managed as type 2 Surgical History No pertinent past surgical history Family History Father No problems noted. Mother No problems noted. Brother Diabetes Sister Diabetes Social History Household Members: Children Housing: House Are you a primary intensive care ambulance paramedic to a significant other at home: No Do you presently have visiting nurse or other home services: Yes (physical therapy) Alcohol intake: never Patient Tobacco Use Status: Never used Tobacco e-Cigarette/Vaping Use: Never Used service: No Current occupational status: retired Cognitive needs: No Hearing needs: No Vision needs: Yes Questionnaire PHQ-9 Over the last 2 weeks, how often have you been bothered by any of the following problems? 1. Little interest or pleasure in doing things: more than half the days 2. Feeling down, depressed, or hopeless: more than half the days 3. Trouble falling or staying asleep, or sleeping too much: not at all 4. Feeling tired or having little energy: nearly every day 5. Poor appetite or overeating: not at all 6. Feeling bad about yourself - or that you are a failure or have let yourself or your family down: not at all 7. Trouble concentrating on things, such as reading the newspaper or watching television: nearly every day 8. Moving or speaking so slowly that other people could have noticed. Or the opposite - being so fidgety or restless that you have been moving around a lot more than usual: nearly every day 9. Thoughts that you would be better off or of hurting yourself in some way: not at all Total score: 13 Depression Screening Interpretation: Positive Depression Screening Follow-up: Existing condition and In treatment Depression Screening Done: Yes Source: Developed by Drs. Familia Weaver, Sheri Munoz, Medhat Loza and colleagues, with an educational kyung from [employer]. Thrive Questionnaire Date Thrive assessed: 05/25/24 I am a: Parent/Caregiver What is your living situation today?: I have a steady place to live Within the past 12 months, did the food you bought not last and you didn't have the money to get more?: Never true Within the past 12 months, did you worry whether your food would run out before you got money to buy more?: Never true Do you have trouble paying for medicines?: No Do you have trouble getting transportation to medical appointments?: No Do you have trouble paying your heating and electricity bill?: No Do you have trouble taking care of your child, family member or friend?: I choose not to answer this question Do you have trouble with day-to-day activities such as bathing, preparing meals, shopping, managing finances, etc.?: I choose not to answer this question Are you currently unemployed and looking for a job?: I choose not to answer this question Are you interested in more education?: I choose not to answer this question Please select the resources that you would like help with: None Currently or been in a relationship where the following occur: I choose not to answer THRIVE Score: 0 AUDIT C Alcohol Use Questionnaire (AUDIT-C) 1. How often do you have a drink containing alcohol?: Never 3. How often do you have six or more drinks on one occasion?: Never Total Score: 0 Score Reviewed/Action Taken: Yes RICHARD-7 AMB Questionnaire RICHARD-7 Date RICHARD - 7 assessed: 05/25/24 Feeling nervous, anxious, or on edge: 1 = Several days Not being able to stop or control worryin = Nearly every day Worrying too much about different things: 1 = Several days Trouble relaxin = More than half the days Being so restless that it is hard to sit still: 0 = Not at all Becoming easily annoyed or irritable: 2 = More than half the days Feeling afraid as if something awful might happen: 0 = Not at all Total RICHARD-7 score (0-4 normal; 5-9 mild; 10-14 moderate; 15-21 severe): 9 Source: Developed by Drs. Familia Weaver, Sheri Munoz, Medhat Loza and colleagues, with an educational kyung from [employer]. Physical exam (Primary Care) Vital Signs: Last Vital Signs Temp 97.8 F 08/24/24 15:18 Pulse 71 08/24/24 15:18 BP 120/78 08/24/24 15:18 Pulse Ox 97 08/24/24 15:18 Oxygen Delivery Method Room Air 08/24/24 15:18 Tobacco/Smoking Status: Tobacco use Status Tobacco use date assessed 08/24/24 08/24/24 15:23 Patient Tobacco Use Status Never used Tobacco 08/24/24 15:23 e-Cigarette/Vaping Use Never Used 08/24/24 15:23 PHQ-9: PHQ-9 Score PHQ-9: Total score 13 08/24/24 15:43 Depression Screening Interpretation: Positive Depression Screening Follow-up: Existing condition and In treatment Thrive Assessment: Date of Thrive Assessment Date Thrive assessed 05/25/24 08/24/24 15:23 Currently or been in a relationship where the following occur: I choose not to answer Results AMB Hemoglobin A1c AMB Hemoglobin A1c 5.8 % Last Edit by Linn Mcgrath CMA on 08/24/24 15:31 Results Reviewed Results Reviewed: Laboratory Last Values Hgb A1c (Clinic) 5.8 % (4.0-6.0) 08/24/24 15:24 Coding Level of Care Code Est Pt Level 5 (32855) Complex EM visit Add On G2211 Diagnoses Chest congestion R09.89 Muscle stiffness M62.89 Diabetes 1.5, managed as type 2 E13.9 Hypertension, essential I10 Anxiety, generalized F41.1 Microcytic hypochromic anemia D50.9 Recurrent strokes I63.9 Left hemiparesis G81.94 Wheelchair dependence Z99.3 Frail elderly R54 Weakness R53.1 Constipation by delayed colonic transit K59.01 Time Spent (min) 40 Comment Reviewing chart/previous labs/medications/njxd-oh-bsaf with patient and daughters/coordina Assessment & Plan Assessment & Plan (1) Chest congestion: Code(s): R09.89 - Other specified symptoms and signs involving the circulatory and respiratory systems Category: Medical (2) Muscle stiffness: Code(s): M62.89 - Other specified disorders of muscle Category: Medical (3) Diabetes 1.5, managed as type 2: Code(s): E13.9 - Other specified diabetes mellitus without complications Category: Medical (4) Hypertension, essential: Code(s): I10 - Essential (primary) hypertension Category: Medical (5) Anxiety, generalized: Code(s): F41.1 - Generalized anxiety disorder Category: Medical (6) Microcytic hypochromic anemia: Code(s): D50.9 - Iron deficiency anemia, unspecified Category: Medical (7) Recurrent strokes: Code(s): I63.9 - Cerebral infarction, unspecified Category: Medical (8) Left hemiparesis: Code(s): G81.94 - Hemiplegia, unspecified affecting left nondominant side Category: Medical (9) Wheelchair dependence: Code(s): Z99.3 - Dependence on wheelchair Category: Medical (10) Frail elderly: Code(s): R54 - Age-related physical debility Category: Medical (11) Weakness: Code(s): R53.1 - Weakness Category: Medical (12) Constipation by delayed colonic transit: Comment: Continue Colace daily and add MiraLax 2 to 3 times a week Code(s): K59.01 - Slow transit constipation Category: Medical Plan History - The patient is an 84-year-old female presenting with Parkinson's like features and respiratory issues. having muscle stiffness and difficulty in movement. total dependent on house hold for her care I have placed Neurology referral for evaluation Patient has a history of multiple strokes as well - Respiratory issues: The patient is experiencing respiratory illness as well with chronic chest congestion and cough I have ordered x-ray today we will see if pulmonary therapy can be conducted by visiting nurses She is to start DuoNeb aerosol treatment Q 8 as needed . - Constipation and abdominal bloating: The patient reports constipation, which is being managed with Gas-X and simethicone. Taking Tylenol for body aches and pains Patient sees Nephrology for the management of blood pressure Diabetes is controlled due to abdominal cramping I am stopping metformin She may continue glipizide 5 mg once a day, family was instructed to check fasting sugar and get back to me in a week Continue pantoprazole And laxatives Patient have developed pigmented rash both knees which is pruritic for that I have sent hydrocortisone 2.5% to be applied at night Patient Instructions - Continue taking prescribed medications as directed. - Monitor blood sugar levels and report any significant changes. - Schedule and attend a neurology appointment for Parkinson's evaluation. - Maintain current gastrointestinal medications to manage constipation. - chest x-ray to be done today Orders: Orders XR chest 2V Today R09.89 - Other specified symptoms and signs involving the circulatory and respiratory systems AMB Hemoglobin A1c Today Z13.9 - Encounter for screening, unspecified Referrals Neurology Referral M62.89 - Other specified disorders of muscle Medications: New ipratropium-albuterol 0.5 mg-3 mg(2.5 mg base)/3 mL 3 mL inhalation Q8H PRN 90 mL 0RF wheezing 30 days hydrocortisone 2.5% 1 appl topical BID PRN 30 grams 0RF skin irritation 30 days Changed From docusate sodium (DOK) 1-2 capsules by mouth every night at bedtimes PRN 100 mg PO DAILY 90 days PRN 90 caps 8RF constipation To docusate sodium 1-2 capsules by mouth every night at bedtimes PRN 100 mg PO DAILY PRN 90 caps 8RF constipation 90 days From glipizide 5 mg PO BID 90 days 180 tabs 3RF Diabetes To glipizide 5 mg PO ONCE 90 tabs 0RF Diabetes 90 days Discontinued metformin Discontinued Reason: Doctor's Order 1,000 mg PO BID 90 days 180 tabs 1RF Diabetes
--- OUTSIDE RECORDS SUMMARY | 2024-08-24 15:17 | XMS_ITS | Encounter Summary ---
Author Organization [facility] Address [address] [place] [address] Phone Care Team Providers Care Weight Control Engineer Name Role Phone Josse Robles MD Primary Care Provider [phone] Encounter Details Date Type Department Care Team (Late st Contact Info) Description 04/20/2021 Telephone [facility] [address] [place] [address] Darius Alexander MD Social History [...] a refill for atenolol. Please send to [facility] on [address] Thank you documented in this encounter Plan of Treatment Not on file documented as of this encounter Visit Diagnoses Not on filedocumented in this encounter Care Teams Weight Control Engineer Relationship Specialty Start Date End Date Josse Robles MD [address] [place] [id number] PCP - General 03/10/20 documented as of this encounter
[2024-08-24 15:18] VITALS: BP 120/78; PULSE 71; TEMP 36.6; O2SAT 97
== END 2024-08-24 15:41 | disposition home or self-care (01) ==
LOC: HO.HMCC 15:12
PROVIDERS: PCP Internal Medicine; Visit Provider Internal Medicine
DX: R09.89 Other specified symptoms and signs involving the circulatory and respiratory systems (principal); E13.9 Other specified diabetes mellitus without complications; I63.9 Cerebral infarction, unspecified; G81.94 Hemiplegia, unspecified affecting left nondominant side; I10 Essential (primary) hypertension; M62.89 Other specified disorders of muscle; F41.1 Generalized anxiety disorder; D50.9 Iron deficiency anemia, unspecified; Z99.3 Dependence on wheelchair; R54 Age-related physical debility; R53.1 Weakness; K59.01 Slow transit constipation

== ENCOUNTER → 2024-08-24 15:11 | Outpatient (BNVA) | payer MEDICAID, SELFPAY | PROVIDERS: PCP Internal Medicine; Visit Provider Internal Medicine | DX: I10 Essential (primary) hypertension (principal); M62.89 Other specified disorders of muscle; R05.9 Cough, unspecified; R09.89 Other specified symptoms and signs involving the circulatory and respiratory systems; K59.00 Constipation, unspecified; E11.9 Type 2 diabetes mellitus without complications; F41.1 Generalized anxiety disorder; D50.9 Iron deficiency anemia, unspecified; G81.94 Hemiplegia, unspecified affecting left nondominant side; R54 Age-related physical debility; K59.01 Slow transit constipation; Z99.3 Dependence on wheelchair; Z86.73 Personal history of transient ischemic attack (TIA), and cerebral infarction without residual deficits | CPT/HCPCS: 83036; 99212 ==

== ENCOUNTER 2024-08-27 13:53 | Outpatient (REF) | payer MEDICAID, SELFPAY ==
--- NOTE | ~2024-08-27 | XR_ITS ---
EXAMINATION: XR CHEST CLINICAL INFORMATION: R09.89 - Other specified symptoms and signs involving the circulatory an... COMPARISON: Correlated to CT chest dated April 16, 2016 TECHNIQUE: Frontal view of the chest was obtained. FINDINGS: There is a large, 14 cm laterally convexed opacity extending from the left cardiomediastinal silhouette to the periphery of the left hemithorax. No pleural effusion or pneumothorax. Pulmonary reticular pattern. Calcified plaque thoracic aorta. Multilevel thoracic and lumbar spondylosis. Osteopenia versus osteoporosis. Degenerative changes in the right shoulder. XR/XR chest 1V IMPRESSION: 14 cm mass, left mediastinal versus left lung. Electronically signed by: Fede Ozuna MD 08/27/2024 03:08 PM EDT
--- OUTSIDE RECORDS SUMMARY | 2024-08-27 14:28 | XMS_ITS | Encounter Summary ---
Author Organization [facility] Address [address] [place] [address] Phone Care Team Providers Care Non Clinical Advisor Name Role Phone Josse oRbles MD Primary Care Provider [phone] Encounter Details Date Type Department Care Team (Late st Contact Info) Description 04/20/2021 Telephone [facility] [address] [place] [address] Darius Alexander MD Social History [...] a refill for atenolol. Please send to [facility] on [address] Thank you documented in this encounter Plan of Treatment Not on file documented as of this encounter Visit Diagnoses Not on filedocumented in this encounter Care Teams Non Clinical Advisor Relationship Specialty Start Date End Date Josse Robles MD [address] [place] [id number] PCP - General 03/10/20 documented as of this encounter
--- OUTSIDE RECORDS SUMMARY | 2024-08-27 14:28 | XMS_ITS | Patient Health Record ---
Author Organization [facility] Address [address] [place] [address] Support Name Relationship Address Phone CRISTINA VILLANUEVA Guarantor Unknown [phone] Reason For Referral No Information Medications Medication SIG (Take, Route, Fr equency, Duration) Notes Start Date End Date Status Synthroid 50 MCG Oral qd Synthroid 05/08/2012 Ac tive Tricor 145 mg PO qd TriCor 05/08/2012 Activ e Plan Of Treatment No Information Insurance Providers Payer Name Payer Address Payer Phone Subscriber Number Group Number Insured Name Patient Relationship to Insured Coverage Start Date Coverage End Date [facility] [employer] [address] [address] [place], [place] [id number] CRISTINA VILLANUEVA Self - patient is the insured
== END 2024-08-27 13:54 | disposition home or self-care (01) ==
LOC: HO.HMGCX 13:53
PROVIDERS: PCP Internal Medicine; Visit Provider Internal Medicine
DX: R09.89 Other specified symptoms and signs involving the circulatory and respiratory systems (principal)
CPT/HCPCS: 71045

== ENCOUNTER → 2024-08-27 13:59 | Outpatient (BNV) | payer MEDICAID, SELFPAY | PROVIDERS: PCP Internal Medicine; Visit Provider Radiology Diagnostic Radiology | DX: R91.8 Other nonspecific abnormal finding of lung field (principal) | CPT/HCPCS: 71045 ==

== ENCOUNTER 2025-01-03 12:21 | Outpatient (AMB) | payer MEDICAID, SELFPAY ==
--- NOTE | 2025-01-03 12:26 | MHC.OFFVIS ---
Vital Signs 01/03/25 12:27 Height 5 ft BP 142/78 H Blood Pressure Location Rt brachial Position Sitting Pulse 75 Pulse Source Pulse Oximeter Pulse Oximetry (%) 95 Oxygen Delivery Method Room Air Intake Visit Reasons: INP-Other specified disorders of muscle Intake Note: Other specific disorders of muscle Emergency Room Clerk Required: No Accompanied by: Son and in law Allergies simvastatin Allergy (Unknown, Verified 01/10/25 13:51) shortness of breath Medication List - Last Reconciled 01/03/25 by Nanette Alexander MD acetaminophen 650 mg (20.3 mL) PO TID PRN 30 days Alcohol Prep Pads (alcohol swabs) 1 pad topical TID NS alprazolam 0.5 mg PO BEDTIME aspirin (Adult Aspirin Regimen) 81 mg PO DAILY 90 days atenolol 50 mg PO BID baclofen 5 mg PO BID [bed rails as ordered As directed] blood sugar diagnostic (FreeStyle Lite Strips) test blood sugar three times a day clonidine HCl 0.1 mg PO BID commode (bedside commode) Extra large bedside commode use As directed commode 3-in-1 commode chair cyanocobalamin (vitamin B-12) 1,000 mcg PO DAILY 90 days Held on 07/28/23. Instructions: Doctor's Order diaper,brief,adult,disposable (Select Disposable Briefs) Uses 3 per day As directed, Extra Large diltiazem HCl CD 180 mg PO DAILY [Disposable bed pads-uses 3/day As directed] [disposable body wipes Use As directed] disposable gloves Use As directed docusate sodium orally daily PRN; 1-2 capsules by mouth every night at bedtimes PRN 90 days glipizide 5 mg PO ONCE 90 days hospital bed Full electric hospital bed with bilateral half rails hydralazine 75 mg (3 x 25 mg) PO TID hydrocortisone 2.5% 1 appl topical BID PRN 30 days ipratropium-albuterol 0.5 mg-3 mg(2.5 mg base)/3 mL 3 mL inhalation Q8H PRN 30 days lancets (FreeStyle Lancets) check blood sugar 3 times daily as directed losartan 50 mg PO BID metformin 1,000 mg PO DAILY metoclopramide HCl 5 mg PO DAILY nebulizers As directed for updraft treatment, with supplies pantoprazole 40 mg PO DAILY polyethylene glycol 3350 (Miralax) 17 grams PO DAILY sennosides (Natural Senna Laxative) 8.6 mg PO BEDTIME simethicone 0.6 mL PO QID PRN 90 days [standard wheelchair-extra Lg Use As directed] [Thickit use as directed] trazodone 50 mg PO BEDTIME PRN 90 days [tub transfer bench As directed] HPI Comments Details: 84y/o Right handed female comes with her son and daughter in law for evaluation of possible parkinsons disease. she had a CVA 1 mick ago with residual left sided weakness. In 2016 and 2022 - she had a CVA with right sided weakness but recovered . she was able to walk with walker and independent in her ADLs. But 2023 stroke - has residual left sided weakness- she is totally dependant , wheel chair dependant. MRI showed acute Right thalamic and Posterior limb of internal capsule lacunar infarcts , chronic lac infarcts and PVWMd she was discharged on aspirin 81mg qd she denies tremors she has word finding difficulty dysarthria .her voice is softer. she also price surinary icnontinence memory is good [facility] Medical History (Updated 01/03/25 @ 13:01 by Nanette Alexander MD) Dysarthria CVA (cerebral vascular accident) Iron deficiency Low hemoglobin Constipation by delayed colonic transit Gastroparesis Bladder disorder Anxiety, generalized Hypertension, essential Diabetes 1.5, managed as type 2 Surgical History No pertinent past surgical history Family History Father No problems noted. Mother No problems noted. Brother Diabetes Sister Diabetes Social History Household Members: Children Housing: House Are you a primary companion caregiver to a significant other at home: No Do you presently have visiting nurse or other home services: Yes (physical therapy) Alcohol intake: never Patient Tobacco Use Status: Never used Tobacco e-Cigarette/Vaping Use: Never Used service: No Current occupational status: retired Cognitive needs: No Hearing needs: No Vision needs: Yes Physical Exam Vital Signs: Last Vital Signs Pulse 75 01/03/25 12:27 BP 142/78 H 01/03/25 12:27 Pulse Ox 95 01/03/25 12:27 Oxygen Delivery Method Room Air 01/03/25 12:27 Const Orientation/consciousness: oriented to person Neuro Other: SPeech- hypophonia Slow movements decrease FFM and foot taps , very slow hand movements Motor- 4-/5 claudine LE 3/5 Increased tone claudine Keeps he rmouth open No tremors No cogwheel rigidity abnormal tongue movements mild left facial droop General: oriented to person, moves all extremities and Unable to assess gait Cranial nerves: Yes Nystagmus not present and Yes Normal facial strength present Cognition (Neuro): normal cognition Gait exam (Neuro): Unable to assess gait Deep tendon reflexes (DTR's): Right triceps reflex intensity grade: 1+, Left triceps reflex intensity grade: 1+, Rt Biceps (C5, C6): 1+, Left biceps reflex intensity grade: 1+, Right brachioradialis reflex intensity grade: 1+, Left brachioradialis reflex intensity grade: 1+, Right patellar reflex intensity grade: 1+ and Left patellar reflex intensity grade: 1+ Coordination: [id number] test normal Assessment & Plan Assessment & Plan (1) Left hemiparesis: Comment: right basal ganglia lacunar stroke - thalamus and posterior limb of internal capsule Code(s): G81.94 - Hemiplegia, unspecified affecting left nondominant side Category: Medical (2) Dysarthria: Code(s): R47.1 - Dysarthria and anarthria Category: Medical (3) Recurrent strokes: Code(s): I63.9 - Cerebral infarction, unspecified Category: Medical Plan No evidence of Parkinson's on today's exam the muscle stiffness is likey related to her CVA I will trail her on baclofen 5 mg bid and see if she improves i will consider a sinemet trial next visit continue aspirin 81mg qd discussed risk factor reduction Medications: New baclofen 5 mg PO BID 60 tabs 4RF Coding Level of Care Code Complex visit Add On G2211 Diagnoses Left hemiparesis G81.94 Dysarthria R47.1 Recurrent strokes I63.9
[2025-01-03 12:27] VITALS: BP 142/78; PULSE 75; O2SAT 95
--- OUTSIDE RECORDS SUMMARY | 2025-01-03 15:16 | XMS_ITS | Patient Health Record ---
Author Organization [facility] Address [address] [place] [address] Support Name Relationship Address Phone CRISTINA VILLANUEVA Guarantor Unknown Reason For Referral No Information Medications Medication [...] Insured Coverage Start Date Coverage End Date [facility] [employer]IC[employer] [address] [address] [place], [place] [id number] [phone] [id number] CRISTINA VILLANUEVA Self - patient is the insured
== END 2025-01-03 13:09 | disposition home or self-care (01) ==
LOC: HO.HSMS 12:22
PROVIDERS: PCP Internal Medicine; Visit Provider Psychiatry & Neurology Neurology
DX: G81.94 Hemiplegia, unspecified affecting left nondominant side (principal); R47.1 Dysarthria and anarthria; I63.9 Cerebral infarction, unspecified
CPT/HCPCS: 99214

== ENCOUNTER → 2025-01-03 12:21 | Outpatient (BNVA) | payer MEDICAID, SELFPAY | PROVIDERS: PCP Internal Medicine; Visit Provider Psychiatry & Neurology Neurology | DX: G81.94 Hemiplegia, unspecified affecting left nondominant side (principal); R47.1 Dysarthria and anarthria; Z86.73 Personal history of transient ischemic attack (TIA), and cerebral infarction without residual deficits | CPT/HCPCS: 99212 ==

== ENCOUNTER 2025-01-08 13:02 | Outpatient (REF) | payer MEDICAID, SELFPAY ==
--- OUTSIDE RECORDS SUMMARY | 2025-01-08 14:47 | XMS_ITS | Patient Health Record ---
Author Organization [facility] Address [address] [facility] [address] [place] [address] Support Name Relationship Address Phone CRISTINA VILLANUEVA [...] Insured Coverage Start Date Coverage End Date [facility] [employer]ICI[employer] [address] [address] [place], [place] [id number] [phone] [id number] CRISTINA VILLANUEVA Self - patient is the insured
[2025-01-08 16:55] LABS: Iron 71 mcg/dL (30-160); Percent Iron Saturation 29 % (15-50); Total Iron Binding Capacity 248 mcg/dL (228-428); Unsaturated Iron Binding 177 ug/dL
[2025-01-08 17:01] LABS: Ferritin 117 ng/mL (10-250)
[2025-01-08 17:11] LABS: Folate 4.9 ng/mL (> or = 4.0); Vitamin B12 > 2000 pg/mL (200-900)
== END 2025-01-08 13:03 | disposition home or self-care (01) ==
LOC: HO.HMGCLDS 13:02
PROVIDERS: PCP Internal Medicine; Visit Provider Internal Medicine Hypertension Specialist
DX: E61.1 Iron deficiency (principal)
CPT/HCPCS: 36415; 82607; 82728; 82746; 83540

== ENCOUNTER 2025-01-09 11:54 | Outpatient (AMB) | payer MEDICAID, SELFPAY ==
--- NOTE | 2025-01-09 12:00 | HO.NEPHOV ---
Vital Signs 01/09/25 12:01 Height 5 ft BP 170/82 H Blood Pressure Location Rt brachial Position Sitting Pulse 77 Pulse Source Pulse Oximeter Pulse Oximetry (%) 95 Oxygen Delivery Method Room Air Intake Visit Reasons: F/U Veterans Service Officer Required: No Accompanied by: Son Allergies simvastatin Allergy (Unknown, Verified 01/09/25 12:02) shortness of breath Medication List - Last Reconciled 01/09/25 by Darius Alexander MD acetaminophen 650 mg (20.3 mL) PO TID PRN 30 days Alcohol Prep Pads (alcohol swabs) 1 pad topical TID NS alprazolam 0.5 mg PO BEDTIME aspirin (Adult Aspirin Regimen) 81 mg PO DAILY 90 days atenolol 50 mg PO BID [bed rails as ordered As directed] blood sugar diagnostic (FreeStyle Lite Strips) test blood sugar three times a day clonidine HCl 0.1 mg PO BID commode (bedside commode) Extra large bedside commode use As directed commode 3-in-1 commode chair cyanocobalamin (vitamin B-12) 1,000 mcg PO DAILY 90 days Held on 07/28/23. Instructions: Doctor's Order diaper,brief,adult,disposable (Select Disposable Briefs) Uses 3 per day As directed, Extra Large diltiazem HCl CD 180 mg PO DAILY [Disposable bed pads-uses 3/day As directed] [disposable body wipes Use As directed] disposable gloves Use As directed docusate sodium orally daily PRN; 1-2 capsules by mouth every night at bedtimes PRN 90 days glipizide 5 mg PO ONCE 90 days hospital bed Full electric hospital bed with bilateral half rails hydralazine 75 mg (3 x 25 mg) PO TID hydrocortisone 2.5% 1 appl topical BID PRN 30 days ipratropium-albuterol 0.5 mg-3 mg(2.5 mg base)/3 mL 3 mL inhalation Q8H PRN 30 days lancets (FreeStyle Lancets) check blood sugar 3 times daily as directed losartan 50 mg PO BID metformin 1,000 mg PO DAILY metoclopramide HCl 5 mg PO DAILY nebulizers As directed for updraft treatment, with supplies pantoprazole 40 mg PO DAILY polyethylene glycol 3350 (Miralax) 17 grams PO DAILY sennosides (Natural Senna Laxative) 8.6 mg PO BEDTIME simethicone 0.6 mL PO QID PRN 90 days [standard wheelchair-extra Lg Use As directed] [Thickit use as directed] trazodone 50 mg PO BEDTIME PRN 90 days [tub transfer bench As directed] HPI Comments Details: Elderly woman with a history of resistant hypertension Recently hospitalized at [facility]. She probably had a TIA. During workup she was found to have a mediastinal mass. According to her son she has had this mass for almost 10-15 years however the recent scan shows an increase in the size. The mediastinal mass measures about 9 cm. The family does not want to proceed with any further workup. 01/11/2024. Here for follow-up. Accompanied by family members. Home blood pressure readings have been elevated. 05/16/24 Home BP fluctuates Minimal use of Clonidine due to sleepiness Has constipation on and off. 01/09/25 The patient is an 84-year-old female presenting with hypertension and constipation. The patient has a history of constipation, experiencing episodes every week or every other week, lasting three to four days without bowel movements. She has been using stool softeners and magnesium to alleviate symptoms, which have provided some relief. Hypertension has been a persistent issue, with blood pressure readings consistently high both at home and in the clinic. The patient also reports sleep disturbances, characterized by increased sleepiness during the day and fragmented sleep at night. Additionally, the patient experiences shoulder pain, particularly in the left shoulder, which has been ongoing for six to eight months. She uses Tylenol for pain management, which provides some relief. [facility] Medical History (Updated 01/03/25 @ 13:01 by Nanette Alexander MD) Dysarthria CVA (cerebral vascular accident) Iron deficiency Low hemoglobin Constipation by delayed colonic transit Gastroparesis Bladder disorder Anxiety, generalized Hypertension, essential Diabetes 1.5, managed as type 2 Surgical History No pertinent past surgical history Family History Father No problems noted. Mother No problems noted. Brother Diabetes Sister Diabetes Social History Household Members: Children Housing: House Are you a primary home health care case manager to a significant other at home: No Do you presently have visiting nurse or other home services: Yes (physical therapy) Alcohol intake: never Patient Tobacco Use Status: Never used Tobacco e-Cigarette/Vaping Use: Never Used service: No Current occupational status: retired Cognitive needs: No Hearing needs: No Vision needs: Yes Physical Exam Vital Signs: Last Vital Signs Pulse 77 01/09/25 12:01 BP 170/82 H 01/09/25 12:01 Pulse Ox 95 01/09/25 12:01 Oxygen Delivery Method Room Air 01/09/25 12:01 Comfortable Neck supple no JVD. Lungs entry equal no rales. Heart S1-S2 heard no gallop or rub. Abdomen soft nontender. Neuro alert awake oriented. No asterixis. Extremities no edema. Results Reviewed Nephrology Results: Urine Protein, (Neg-Trace) Trace mg/dL 06/21/24 Assessment & Plan Assessment & Plan (1) Hypertension, essential: Code(s): I10 - Essential (primary) hypertension Category: Medical (2) Microcytic hypochromic anemia: Code(s): D50.9 - Iron deficiency anemia, unspecified Category: Medical Plan Elderly woman with resistant hypertension. History of CVA Avoid hypotensive episodes. All medications reviewed. Unable to take clonidine due to increased sleepiness. Increase hydralazine up to 100 mg 3 times a day. Use clonidine 0.1 mg p.r.n. if systolic blood pressure more than 160 mm Hg. Significant anemia. In the past she had iron-deficiency. Unable to tolerate oral iron tablets. Hemoglobin has improved Orders: Orders Complete Blood Count no Diff 6 Months D64.9 - Anemia, unspecified, I10 - Essential (primary) hypertension Basic Metabolic Panel 6 Months D64.9 - Anemia, unspecified, I10 - Essential (primary) hypertension Medications: New hydralazine 100 mg PO TID 90 tabs 3RF Changed From clonidine HCl 0.1 mg PO BID To clonidine HCl 0.1 mg PO BID PRN Refilled atenolol 50 mg PO BID 180 tabs 3RF diltiazem HCl CD 180 mg PO DAILY 90 caps 4RF Discontinued hydralazine Discontinued Reason: Doctor's Order 75 mg (3 x 25 mg) PO TID 810 tabs 0RF Coding Level of Care Code Est Pt Level 4 (01210) Diagnoses Hypertension, essential I10 Microcytic hypochromic anemia D50.9
[2025-01-09 12:01] VITALS: BP 170/82; PULSE 77; O2SAT 95
--- OUTSIDE RECORDS SUMMARY | 2025-01-09 14:47 | XMS_ITS | Encounter Summary ---
Author Organization [facility] Address [address] [place] [address] Phone Care Team Providers Care Sdc Teacher Name Role Phone Josse Robles MD Primary Care Provider [phone] Encounter Details Date Type Department Care Team (Late st Contact Info) Description 04/20/2021 Telephone [facility] [address] [place] [address] Darius Alexander MD Social History [...] a refill for atenolol. Please send to [facility] on [address] Thank you documented in this encounter Plan of Treatment Not on file documented as of this encounter Visit Diagnoses Not on filedocumented in this encounter Care Teams Sdc Teacher Relationship Specialty Start Date End Date Josse Robles MD [address] [place] [id number] PCP - General 03/10/20 documented as of this encounter
--- OUTSIDE RECORDS SUMMARY | 2025-01-09 14:47 | XMS_ITS | Clinical Summary ---
Author Organization [facility] Address [address] [facility] [address] [place] [address] Phone Care Team Providers Care Heavy Forger Helper Name Role Phone Josse Robles MD Primary Care Provider [phone] Allergies No known active allergies Medications aspirin [...] 50+ Ye ars (2 of 2 - PPSV23, PCV20, or PCV21) 05/16/2016 03/21/2016 Diabetes: Hemoglobin A1C 01/13/2021 Diabetes: Ophthalmology Exam 01/13/2021 Diabetes: Pedal Pulse Checked 01/13/2021 Diabetes: Sensory Foot Exam 01/13/2021 Diabetes: Visual Foot Exam 01/13/2021 Influenza Vaccine (#1) 2024 Pneumococcal Vaccine: Peds ( 0 to [...] ID:Not on file Type:Not on file Address: [address] Medicaid [place] Member Subscriber Plan / Payer (Ef fective 2020-Present) Name:Bimal Bower Relation to Subscriber:Self Name:Bimal Bower Payer ID:Not on file Group ID:Not on file Type:Not on file Address: [place] [id number] Care Teams Heavy Forger Helper Relationship Specialty Start Date End Date Josse Robles MD [address] [place] [id number] PCP - General 03/10/20
--- OUTSIDE RECORDS SUMMARY | 2025-01-09 14:47 | XMS_ITS | Patient Health Record ---
Author Organization [facility] Address [address] [facility] [address] [place] [address] Support Name Relationship Address Phone CRISTINA VILLANUEVA [...] Insured Coverage Start Date Coverage End Date [facility] MEDICIAD [address] [address] [place], [place] [id number] CRISTINA VILLANUEVA Self - patient is the insured
== END 2025-01-09 12:34 | disposition home or self-care (01) ==
LOC: HO.HKAS 11:54
PROVIDERS: PCP Internal Medicine; Visit Provider Internal Medicine Hypertension Specialist
DX: I10 Essential (primary) hypertension (principal); D50.9 Iron deficiency anemia, unspecified
CPT/HCPCS: 99214

== ENCOUNTER → 2025-01-09 11:54 | Outpatient (BNVA) | payer MEDICAID, SELFPAY | PROVIDERS: PCP Internal Medicine; Visit Provider Internal Medicine Hypertension Specialist | DX: I1A.0 Resistant hypertension (principal); D50.9 Iron deficiency anemia, unspecified | CPT/HCPCS: 99212 ==

== ENCOUNTER 2025-01-10 13:47 | Outpatient (AMB) | payer MEDICAID, SELFPAY ==
--- NOTE | 2025-01-10 13:51 | MHC.OFFVIS ---
Vital Signs 01/10/25 13:52 Height 5 ft Weight 124 lb BMI 24.2 BP 208/94 H Blood Pressure Location Lt brachial Position Sitting Pulse 78 Pulse Oximetry (%) 94 Oxygen Delivery Method Room Air Intake Visit Reasons: Slow transit constipation/Gastroparesis Intake Note: Patient complex follow up for Slow transit constipation/Gastroparesis, benito was 07/07/2020 Patient cc: abdominal pain with bloating, burping a lot with acid reflux,between constipation with gasses to regular BM every 4 dates, poor appetite with slow swallowing. Public Area Attendant Required: No Accompanied by: Family/Other Allergies simvastatin Allergy (Unknown, Verified 01/10/25 13:51) shortness of breath Medication List - Last Reconciled 01/10/25 by Symone Walls MD acetaminophen 650 mg (20.3 mL) PO TID PRN 30 days Alcohol Prep Pads (alcohol swabs) 1 pad topical TID NS alprazolam 0.5 mg PO BEDTIME aspirin (Adult Aspirin Regimen) 81 mg PO DAILY 90 days atenolol 50 mg PO BID [bed rails as ordered As directed] blood sugar diagnostic (FreeStyle Lite Strips) test blood sugar three times a day carbidopa-levodopa 25-100 mg 1 tab PO BID clonidine HCl 0.1 mg PO BID PRN commode (bedside commode) Extra large bedside commode use As directed commode 3-in-1 commode chair cyanocobalamin (vitamin B-12) 1,000 mcg PO DAILY 90 days Held on 07/28/23. Instructions: Doctor's Order diaper,brief,adult,disposable (Select Disposable Briefs) Uses 3 per day As directed, Extra Large diltiazem HCl CD 180 mg PO DAILY [Disposable bed pads-uses 3/day As directed] [disposable body wipes Use As directed] disposable gloves Use As directed docusate sodium orally daily PRN; 1-2 capsules by mouth every night at bedtimes PRN 90 days glipizide 5 mg PO ONCE 90 days hospital bed Full electric hospital bed with bilateral half rails hydralazine 100 mg PO TID hydrocortisone 2.5% 1 appl topical BID PRN 30 days ipratropium-albuterol 0.5 mg-3 mg(2.5 mg base)/3 mL 3 mL inhalation Q8H PRN 30 days lancets (FreeStyle Lancets) check blood sugar 3 times daily as directed losartan 50 mg PO BID metformin 1,000 mg PO DAILY metoclopramide HCl 5 mg PO DAILY nebulizers As directed for updraft treatment, with supplies pantoprazole 40 mg PO DAILY polyethylene glycol 3350 (Miralax) 17 grams PO DAILY sennosides (Natural Senna Laxative) 8.6 mg PO BEDTIME simethicone 0.6 mL PO QID PRN 90 days [standard wheelchair-extra Lg Use As directed] [Thickit use as directed] trazodone 50 mg PO BEDTIME PRN 90 days [tub transfer bench As directed] HPI HPI Slow transit constipation/Gastroparesis: Details: GI clinic visit for this 84 year old Amharic speaking Gabonese Irish female with stable anterior mediastinal mass followed in GI for evaluation of longstanding iron def anemia and Vitamin b12 deficiency. Celiac sprue serologies were negative in 2015. BENITO in 06/2020 Medical and Surgical History 1. Hypercholesterolemia. 2. Hypertension. 3. Type 2 diabetes with mononeuropathy. 4. Arthritis. 5. GERD. 6. Constipation. 7. Iron deficiency anemia. 8. Vitamin B12 deficiency. 9. Urinary incontinence. 10. Mediastinal Mass:. TODAY'S VISIT: Patient reports abdominal pain with bloating, burping a lot with acid reflux,between constipation with gasses to regular BM every 4 days, poor appetite with slow swallowing. Pt is accompanied by son and her [id number] Chronic constipation and has a BM every 3-4 days - Uses a bedside commode Abd pain when she is constipated. Decreased appetite Pt has oropharyngeal dysphagia with intermittent coughing spells with thin liquids. Had a modified barium swallow a year ago at [facility] [place] and family is following advice of speech pathologist PAST VISITS: Spoke to patient and her [id number] Complains of weakness and rapid heartbeat. Had a stroke 4 yrs ago at [facility] - she was unable to walk then and now able to ambulate with the help of a walker. Complains of intermittent coughing spells with shortness of breath after eating - can happen with fluids and solids and sometimes while on an empty stomach. Above episodes have become less frequent - once every 15 to 20 days Scheduled for a barium swallow and did not go due to concern for COVID infection Notes bloating. Has coughing spells though her mouth feels dry. Patient denies symptoms of nausea, vomiting. Has intermittent constipation and takes Senna prn. Takes a tablet daily. Can have a BM daily or every other day. Thinks she has had gradual weight loss over the past 10 yrs - weight has been stable. Patient denies major cardiac or pulmonary problems, loud snoring or sleep apnea Denies problems with anesthesia in the past. Denies being on chronic anticoagulation. Patient denies known family history of colon polyps, colon cancer or other GI malignancies. PAST VISIT: Takes iron intermittently due to constipation. Patient is accompanied by her daughter who provided some of the history. Diagnosed with Vitamin B 12 deficiency and treated with Vitamin B 12 injections and then stopped. Diagnosed with iron and vitamin B 12 deficiency last month and has resumed taking oral Vitamin B 12 tablets and iron once daily. Notes constipation with oral iron intake Denies abdominal pain, heartburn, or diarrhea. Has problems with gas, bloating and constipation. has a BM daily or every other day with straining. Taking colace twice a day. Black stools due to oral iron. Denies rectal bleeding. Decreased appetite with weight loss. Known history of anem [facility] Medical History (Updated 01/03/25 @ 13:01 by Nanette Alexander MD) Dysarthria CVA (cerebral vascular accident) Iron deficiency Low hemoglobin Constipation by delayed colonic transit Gastroparesis Bladder disorder Anxiety, generalized Hypertension, essential Diabetes 1.5, managed as type 2 Surgical History No pertinent past surgical history Family History Father No problems noted. Mother No problems noted. Brother Diabetes Sister Diabetes Social History Household Members: Children Housing: House Are you a primary emergency care attendant to a significant other at home: No Do you presently have visiting nurse or other home services: Yes (physical therapy) Alcohol intake: never Patient Tobacco Use Status: Never used Tobacco e-Cigarette/Vaping Use: Never Used service: No Current occupational status: retired Cognitive needs: No Hearing needs: No Vision needs: Yes Review of Systems Const All systems reviewed & are unremarkable except as noted in HPI and below Physical Exam Vital Signs: Last Vital Signs Pulse 78 01/10/25 13:52 BP 208/94 H 01/10/25 13:52 Pulse Ox 94 01/10/25 13:52 Oxygen Delivery Method Room Air 01/10/25 13:52 BMI result Body Mass Index 24.2 Const General: no acute distress and ill appearing chronically Nutritional Appearance: average body habitus Orientation/consciousness: patient oriented x3 Limitations: wheelchair HEENT Head: Yes normal to inspection Ears: hearing grossly normal bilaterally Eyes Sclerae: sclerae normal Pupils: Equal, round and reactive pupils present Neck Neck: Yes normal visual inspection Chest Chest palpation & inspection: normal inspection of the chest Resp Effort & Inspection: normal respiratory effort Auscultation: clear to auscultation bilaterally Cardio Palpation: normal PMI Rate: regular rate Rhythm: regular rhythm Heart sounds: S1 normal heart sound present, S2 normal heart sound present and no murmurs GI Palpation (GI): Soft to palpation, nontender and No hepatosplenomegaly present Auscultation: normal bowel sounds Rectal Exam - Female: deferred Skin General skin exam: no rashes or lesions noted Neuro General: patient oriented x3, gait normal and moves all extremities Cranial nerves: Yes Equal, round and reactive pupils present Psych Appearance: grossly normal Mental Status: mental status grossly normal Assessment & Plan Assessment & Plan (1) Gastroparesis: Code(s): K31.84 - Gastroparesis Category: Medical (2) Difficulty swallowing: Comment: Related to past CVA - gradually improving Patient is scheduled for modified barium swallow - did not come in for her appointment due to concern for exposure to COVID-19 Code(s): R13.10 - Dysphagia, unspecified Category: Medical (3) Constipation by delayed colonic transit: Comment: Continue Colace daily and add MiraLax 2 to 3 times a week Code(s): K59.01 - Slow transit constipation Category: Medical (4) Vitamin B12 deficiency: Comment: Vitamin B 12 Deficiency can be due to atrophic gastritis or celiac sprue. Of note celiac ab panel was negative 2 years ago. Code(s): E53.8 - Deficiency of other specified B group vitamins Category: Medical (5) Iron deficiency: Comment: Taking ferrous sulfate once daily Code(s): E61.1 - Iron deficiency Category: Medical Plan 84 YF with intermittent coughing spells with and without eating and drinking for the past 4 years (after she had a stroke). She likely has oropharyngeal dysphagia related to past CVA. Symptoms are gradually improving and becoming less frequent Patient has a long history of iron def anemia likely related to upper versus LGI blood loss. She was taking Celebrex and has discontinued taking it several months ago. Further evaluation with EGD and Colonoscopy was discussed with the patient and her daugher during her previous visit and patient is still reluctant to undergo endoscopic evaluation. She would prefer to continue taking oral iron and monitor her CBC. She was advised to increase iron to twice daily due to worsening iron deficiency anemia. Advised to take senna daily after increasing ferrous sulfate. Follow-up GI clinic appointment in 2 months with repeat CBC and ferritin 01/10/25 Chronic constipation and has a BM every 3-4 days - Abd pain when she is constipated. Pt has oropharyngeal dysphagia with intermittent coughing spells with thin liquids. Had a modified barium swallow a year ago at [facility] [place] and family is following advice of speech pathologist Pt's [id number] was advised to start a regular bowel program with MiraLax 1 scoop in a glass of water every other day (She has been using 2 scoops) and senna 1 tab at bedtime alternating with Miralax Advised to give one dose of Mag Citrate today or tomorrow before starting the patient on a regular bowel program. 09/28/2023 MBS at [facility] SHOWED: Pan[place], honey and applesauce consistency without laryngeal penetration or subglottic aspiration Mixed fruit/juice with pooling that is within normal limits. Appears to be slightly increased tracheal residue likely due to additional cough and settling of prior aspiration with thin consistency, trace amount of additional aspiration can not be ruled out. Notably patient was not able to adequately chew food and this was spit out Gross aspiration with strong cough with thin barium consistency - possible aspiration with mixed fruit juice For dietary concern the recommendation please refer to speech pathologist report Patient Instructions: Take Miralax 1 scoop in a glass of water every other day Take Senna 1 tablet every other day alternating with Miralax Coding Level of Care Code New Pt Level 4 (80721) Diagnoses Gastroparesis K31.84 Difficulty swallowing R13.10 Constipation by delayed colonic transit K59.01 Vitamin B12 deficiency E53.8 Iron deficiency E61.1 Time Spent (min) 27
[2025-01-10 13:52] VITALS: BP 208/94; PULSE 78; O2SAT 94; BMI 24.2
--- OUTSIDE RECORDS SUMMARY | 2025-01-10 17:14 | XMS_ITS | Encounter Summary ---
Author Organization [facility] Address [address] [place] [address] Phone Care Team Providers Care Security Intelligence Analyst Name Role Phone Josse Robles MD Primary Care Provider [phone] Encounter Details Date Type Department Care Team (Late st Contact Info) Description 04/20/2021 Telephone [facility] [address] [place] [address] Darius Alexander MD Social History [...] a refill for atenolol. Please send to [facility] on [address] Thank you documented in this encounter Plan of Treatment Not on file documented as of this encounter Visit Diagnoses Not on filedocumented in this encounter Care Teams Security Intelligence Analyst Relationship Specialty Start Date End Date Josse Robles MD [address] [place] [id number] PCP - General 03/10/20 documented as of this encounter
--- OUTSIDE RECORDS SUMMARY | 2025-01-10 17:14 | XMS_ITS | Clinical Summary ---
Author Organization [facility] Address [address] [facility] [address] [place] [address] Phone Care Team Providers Care Cad Manager Name Role Phone Josse Robles MD Primary Care Provider [phone] Allergies No known active allergies Medications aspirin [...] ID:Not on file Type:Not on file Address: [address] Medicaid [place] Member Subscriber Plan / Payer (Ef fective 2020-Present) Name:Bimal Bower Relation to Subscriber:Self Name:Bimal Bower Payer ID:Not on file Group ID:Not on file Type:Not on file Address: [place] [id number] Care Teams Cad Manager Relationship Specialty Start Date End Date Josse Robles MD [address] [place] [id number] PCP - General 03/10/20
--- OUTSIDE RECORDS SUMMARY | 2025-01-10 17:14 | XMS_ITS | Patient Health Record ---
Author Organization [facility] Address [address] [facility] [address] [place] [address] Support Name Relationship Address Phone CRISTINA VILLANUEVA [...] Insured Coverage Start Date Coverage End Date [facility] MEDICIAD [address] [address] [place], [place] [id number] [phone] [id number] CRISTINA VILLANUEVA Self - patient is the insured
== END 2025-01-10 15:10 | disposition home or self-care (01) ==
LOC: HO.HGI 13:48
PROVIDERS: PCP Internal Medicine; Visit Provider Internal Medicine Gastroenterology
DX: K31.84 Gastroparesis (principal); R13.10 Dysphagia, unspecified; K59.01 Slow transit constipation; E53.8 Deficiency of other specified B group vitamins; E61.1 Iron deficiency
CPT/HCPCS: 99204

== ENCOUNTER → 2025-01-10 13:47 | Outpatient (BNVA) | payer MEDICAID, SELFPAY | PROVIDERS: PCP Internal Medicine; Visit Provider Internal Medicine Gastroenterology | DX: K31.84 Gastroparesis (principal); R13.10 Dysphagia, unspecified; K59.01 Slow transit constipation; E53.8 Deficiency of other specified B group vitamins; E61.1 Iron deficiency | CPT/HCPCS: 99202 ==

== ENCOUNTER 2025-02-25 16:40 | Emergency (ER) | payer MEDICAID, SELFPAY ==
--- OUTSIDE RECORDS SUMMARY | 2025-02-22 00:57 | XMS_ITS | Continuity of Care Document ---
Author Organization [facility] ter Address [address] [place] [id number]- Care Team Providers Care Latin Teacher Name Role Phone Travis BOND, Asma [id number] Date[facility]s): [facility]21/25 - 02/22/[address] [address]- Encounter Diagnosis Stercoral colitis(Final) - 02/21/25 Discharge Disposition: A-D/C Home Attending Physician: Telma Higgibnotham MD Admitting Physician: Telma Higginbotham MD Referring Physician: Not on Staff, Referring MD Encounter Type: Disch ES Allergies, Adverse Reactions, Alerts No Known Allergies Immunizations Given and Recorded Vaccine Date Status Refusal Reason influenza virus vaccine, inactivated 01/05/20 Give n influenza virus vaccine, inactivated 03/21/16 Give n pneumococcal 13-valent vaccine 03/21/16 Given Medications ALPRAZolam 0.25 mg oral tablet TAKE 1 TABLET BY MOUTH 1 TIME NEEDED FOR ANXIETY Start Date: 09/21/23 Status: Ordered Medication Dispense Status: Completed Total Allowed Fills: 1 Fills Dispensed: 0 Aspirin Low Dose 81 mg oral delayed release tablet 1 tablet = 81 mg, By Mouth, Daily, # 30 tablet, 0 Refills, Maintenance, 09/21/23 2:07:00 PM EDT, EC Tablet, Partial fill upon patient request if the prescription is for a schedule II opioid drug. Start Date: 09/21/23 Status: Ordered Medication Dispense Status: Completed Quantity: 30.0 Unit: tablet Total Allowed Fills: 1 Fills Dispensed: 0 atenolol 50 mg oral tablet 50 mg, 1, tablet, By Mouth, 2 times a day, # 60 tablet, Refills 0, Maintenance, 03/20/16 9:24:18 AM EST Start Date: 03/20/16 Status: Ordered Medication Dispense Status: Completed Quantity: 60.0 Unit: tablet Total Allowed Fills: 1 Fills Dispensed: 0 cloNIDine 0.1 mg oral tablet 0.3 mg, By Mouth, 2 times a day, # 180 tablet, Refills 0, Tot. Refills 0, Maintenance, 09/29/23 12:17:00 PM EDT, Route to Pharmacy Electronically, [facility], Partial fill upon patient request if the prescription is for a schedule II opioid drug., 153.6, cm, 09/29/23 6:29:00 EDT, Height, 72.8, kg, 09/27/23 21:10:00 EDT, Dry Weight Start Date: 09/29/23 Stop Date: 10/29/23 Status: Ordered Medication Dispense Status: Completed Quantity: 180.0 Unit: tablet Total Allowed Fills: 1 Fills Dispensed: 0 Colace sodium 100 mg oral capsule 100 mg, 1, capsule, By Mouth, 2 times a day, PRN, # 20 capsule, Refills 0, Maintenance, for constipation, 01/04/20 6:19:00 PM EST Start Date: 01/04/20 Status: Ordered Medication Dispense Status: Completed Quantity: 20.0 Unit: capsule Total Allowed Fills: 1 Fills Dispensed: 0 DilTIAZem (Eqv-Cardizem CD) 180 mg/24 hours oral capsule, extended release TAKE 1 CAPSULE BY MOUTH DAILY Start Date: 09/21/23 Status: Ordered Medication Dispense Status: Completed Total Allowed Fills: 1 Fills Dispensed: 0 ezetimibe 10 mg oral tablet 1 tablet = 10 mg, By Mouth, Daily, # 30 tablet, 0 Refills, Maintenance, 09/29/23 10:05:00 AM EDT, Tablet, [facility], Partial fill upon patient request if the prescription is for a schedule II opioid drug., 153.6, cm, 09/29/23 6:29:00 EDT, Height, 72.8, kg, 09/27/23 21:10:00 EDT, Dry Weight Start Date: 09/29/23 Stop Date: 10/29/23 Status: Ordered Medication Dispense Status: Completed Quantity: 30.0 Unit: tablet Total Allowed Fills: 1 Fills Dispensed: 0 glipiZIDE 5 mg oral tablet 5 mg, 1, tablet, By Mouth, Daily, Refills 0, Maintenance, 03/20/16 9:28:17 AM EST Start Date: 03/20/16 Status: Ordered Medication Dispense Status: Completed Total Allowed Fills: 1 Fills Dispensed: 0 hydrALAZINE 25 mg oral tablet 50 mg, By Mouth, 3 times a day, # 180 tablet, Refills 0, Tot. Refills 0, Maintenance, 09/29/23 9:48:00 AM EDT, Route to Pharmacy Electronically, [facility], Partial fill upon patient request if the prescription is for a schedule II opioid drug., 153.6, cm, 09/29/23 6:29:00 EDT, Height, 72.8, kg, 09/27/23 21:10:00 EDT, Dry Weight Start Date: 09/29/23 Stop Date: 10/29/23 Status: Ordered Medication Dispense Status: Completed Quantity: 180.0 Unit: tablet Total Allowed Fills: 1 Fills Dispensed: 0 losartan 50 mg oral tablet TK 1 T PO BID Start Date: 03/15/17 Status: Ordered Medication Dispense Status: Completed Total Allowed Fills: 1 Fills Dispensed: 0 metformin 1000 mg oral tablet 1 tablet = 1,000 mg, By Mouth, 2 times a day, # 60 tablet, 3 Refills, Maintenance, 12/27/09 11:01:09 AM EDT, Tablet Start Date: 12/27/09 Stop Date: 04/26/10 Status: Ordered Medication Dispense Status: Completed Quantity: 60.0 Unit: tablet Total Allowed Fills: 4 Fills Dispensed: 0 metoclopramide 5 mg oral tablet TAKE 1 TABLET BY MOUTH 1 TIME NEEDED FOR NAUSEA OR VOMITING Start Date: 09/21/23 Status: Ordered Medication Dispense Status: Completed Total Allowed Fills: 1 Fills Dispensed: 0 MorPHINE Inj 2 mg, Injection, IV Push Slowly, Once, STAT, 02/21/25 5:03:00 PM EST, Stop date 02/21/25 6:50:09 PMEST Start Date: 02/21/25 Stop Date: 02/21/25 Status: Completed Medication Dispense Status: Completed Total Allowed Fills: 1 Fills Dispensed: 0 omeprazole 20 mg oral delayed release tablet 1 tablet = 20 mg, By Mouth, Daily, # 30 tablet, 0 Refills, Maintenance, 01/04/20 6:18:00 PM EST, CR Tablet Start Date: 01/04/20 Status: Ordered Medication Dispense Status: Completed Quantity: 30.0 Unit: tablet Total Allowed Fills: 1 Fills Dispensed: 0 spironolactone 100 mg oral tablet 100 mg, By Mouth, Daily, # 30 tablet, Refills 0, Tot. Refills 0, Maintenance, 09/29/23 9:48:00 AM EDT, Route to Pharmacy Electronically, [facility], Partial fill upon patient request if the prescription is for a schedule II opioid drug., 153.6, cm, 09/29/23 6:29:00 EDT, Height, 72.8, kg, 09/27/23 21:10:00 EDT, Dry Weight Start Date: 09/29/23 Stop Date: 10/29/23 Status: Ordered Medication Dispense Status: Completed Quantity: 30.0 Unit: tablet Total Allowed Fills: 1 Fills Dispensed: 0 tolterodine 2 mg oral tablet 1 tablet = 2 mg, By Mouth, 2 times a day, # 60 tablet, 0 Refills, Maintenance, 01/04/20 6:18:00 PM EST, Tablet Start Date: 01/04/20 Status: Ordered Medication Dispense Status: Completed Quantity: 60.0 Unit: tablet Total Allowed Fills: 1 Fills Dispensed: 0 Vitamin D2 2000 intl units oral capsule 1 capsule = 2,000 International_Units, By Mouth, Daily, with food, # 60 capsule, 0 Refills, Maintenance, 01/04/20 6:19:00 PM EST, Capsule Start Date: 01/04/20 Status: Ordered Medication Dispense Status: Completed Quantity: 60.0 Unit: capsule Total Allowed Fills: 1 Fills Dispensed: 0 Problem List Condition Confirmation Course Effective Dates Status Health Status Informant Anxiety Confirmed Active DM (diabetes mellitus) Confirmed Active Hypercholesterolemia Confirmed Active Hypertension Confirmed Active Mediastinal mass Confirmed Active OA - Osteoarthritis Confirmed Active Results Radiology Reports * Exam Date Time Procedure Performing Provider Status 02/21/25 8:[address] Abd/Pelvis W/ IV + Oral Contrast Auth (Verified) Notes: (CT Abd/Pelvis W/ IV + Oral Contrast) Reason For Exam: RLQ abdominal pain;Other: RESULT: CT Abd/Pelvis W/ IV + Oral Contrast CT Chest W/ Contrast, CT Abd/Pelvis W/ IV + Oral Contrast INDICATION: Hx of Present Illness: coming from home for the past 2 days diarrhea and lower abd painthat wraps going to the bathroom very 15 min . not toelerating food or water it goes right threw her hx of 3 strokes, diabetic uses wheelchair- stand to pivot 2 assist; Reason: Trauma; Pulmonary Lesion; Clinical Question(s): Bone Lesion - TECHNIQUE: Helical CT scan of the chest, abdomen, and pelvis with IV contrast, formatted in 3 planes. 100 cc of Isovue 300 100cc vials was administered intravenously. This study was performed with oral contrast. Weight-based protocol was performed using automatic exposure control. CTDIvol Body: 7.20 mGy, DLP Body: 501 mGy*cm. COMPARISON: None. FINDINGS: Energy Sales Consultant view findings, lines and tubes: None. Trachea and airways: Patent without evidence of tracheal or endobronchial lesion. Lungs and pleura: Clear lungs. No effusion or pneumothorax. Mediastinum and shawna: Mediastinal mass noted in the left chest with measurements similar to previous examination 2 maximally 11 cm. Portions appears slightly more full and this may have mildly increased in size. Left lower lobe nodules appear increased in size with largest measuring 9 mm maximum dimension compared to 4 mm on the previous examination from 09/27/2023. Right lower lobe subpleural nodule unchanged. Heart: Heart is normal in size. No pericardial effusion. Aorta: No aortic aneurysm. Pulmonary arteries: Normal caliber. No evidence of pulmonary embolism on this study performed without angiographic technique. Chest wall soft tissues: No acute abnormality. Diaphragm: Intact. Liver: Normal in attenuation and morphology. No suspicious lesion. Gallbladder: No CT evidence of gallbladder pathology. Bile ducts: No biliary ductal dilation. Spleen: Normal in size. Pancreas: No suspicious lesion or ductal dilatation. Adrenal glands: No nodule. Kidneys and ureters: No hydronephrosis, stone, or suspicious lesion. Bladder: No wall thickening or surrounding stranding. Reproductive organs: Probable uterine fibroids. Stomach, small bowel, and large bowel: Stranding noted in the perirectal area. Possible proctitis. Appendix: No evidence of acute appendicitis. Peritoneum and retroperitoneum: No ascites or pneumoperitoneum. No omental or mesenteric lesions. Lymph nodes: No enlarged lymph nodes. Blood vessels: Moderate atherosclerotic vascular calcification. No aortic aneurysm. No evidence of venous thrombosis. Abdominal and pelvic wall soft tissues: No acute abnormality. Bones: No acute abnormality. IMPRESSION: Possible slight increase in size of the large left mediastinal mass. Increase in size of left lower lobe pulmonary nodules previous imaging. Differential includes metastatic disease as well as primary malignancy. PET/CT could be considered. Possible findings of proctitis. Otherwise unremarkable study. WSN: [id number] Ordering Physician: Telma Higginbotham Dictated By: Jersey Li MD Dictated Date/Time: 02/21/25 8:56 pm Reviewed By: Jersey Li MD Signed By: Jersey Li MD Signed Date/Time: 02/21/25 8:56 pm Transcribed By: HORACIO Transcribed Date/Time: 02/21/25 8:43 pm * Exam Date Time Procedure Performing Provider Status 02/21/25 8:[address] Chest W/ Contrast Aut h (Verified) Notes: (CT Chest W/ Contrast) Reason For Exam: Pulmonary Lesion;Trauma RESULT: CT Chest W/ Contrast CT Chest W/ Contrast, CT Abd/Pelvis W/ IV + Oral Contrast INDICATION: Hx of Present Illness: coming from home for the past 2 days diarrhea and lower abd painthat wraps going to the bathroom very 15 min . not toelerating food or water it goes right threw her hx of 3 strokes, diabetic uses wheelchair- stand to pivot 2 assist; Reason: Trauma; Pulmonary Lesion; Clinical Question(s): Bone Lesion - TECHNIQUE: Helical CT scan of the chest, abdomen, and pelvis with IV contrast, formatted in 3 planes. 100 cc of Isovue 300 100cc vials was administered intravenously. This study was performed with oral contrast. Weight-based protocol was performed using automatic exposure control. CTDIvol Body: 7.20 mGy, DLP Body: 501 mGy*cm. COMPARISON: None. FINDINGS: Energy Sales Consultant view findings, lines and tubes: None. Trachea and airways: Patent without evidence of tracheal or endobronchial lesion. Lungs and pleura: Clear lungs. No effusion or pneumothorax. Mediastinum and shawna: Mediastinal mass noted in the left chest with measurements similar to previous examination 2 maximally 11 cm. Portions appears slightly more full and this may have mildly increased in size. Left lower lobe nodules appear increased in size with largest measuring 9 mm maximum dimension compared to 4 mm on the previous examination from 09/27/2023. Right lower lobe subpleural nodule unchanged. Heart: Heart is normal in size. No pericardial effusion. Aorta: No aortic aneurysm. Pulmonary arteries: Normal caliber. No evidence of pulmonary embolism on this study performed without angiographic technique. Chest wall soft tissues: No acute abnormality. Diaphragm: Intact. Liver: Normal in attenuation and morphology. No suspicious lesion. Gallbladder: No CT evidence of gallbladder pathology. Bile ducts: No biliary ductal dilation. Spleen: Normal in size. Pancreas: No suspicious lesion or ductal dilatation. Adrenal glands: No nodule. Kidneys and ureters: No hydronephrosis, stone, or suspicious lesion. Bladder: No wall thickening or surrounding stranding. Reproductive organs: Probable uterine fibroids. Stomach, small bowel, and large bowel: Stranding noted in the perirectal area. Possible proctitis. Appendix: No evidence of acute appendicitis. Peritoneum and retroperitoneum: No ascites or pneumoperitoneum. No omental or mesenteric lesions. Lymph nodes: No enlarged lymph nodes. Blood vessels: Moderate atherosclerotic vascular calcification. No aortic aneurysm. No evidence of venous thrombosis. Abdominal and pelvic wall soft tissues: No acute abnormality. Bones: No acute abnormality. IMPRESSION: Possible slight increase in size of the large left mediastinal mass. Increase in size of left lower lobe pulmonary nodules previous imaging. Differential includes metastatic disease as well as primary malignancy. PET/CT could be considered. Possible findings of proctitis. Otherwise unremarkable study. WSN: [id number] Ordering Physician: Telma Higginbotham Dictated By: Jersey Li MD Dictated Date/Time: 02/21/25 8:56 pm Reviewed By: Jersey Li MD Signed By: Jersey Li MD Signed Date/Time: 02/21/25 8:56 pm Transcribed By: HORACIO Transcribed Date/Time: 02/21/25 8:43 pm Vital Signs Most recent to oldest [Reference Range]: 1 2 3 Oxygen Saturation [94-100 %] 100 % (02/22/25 12:53 AM) 94 % (02/21/25 4:26 PM) Pulse Rate [55-90 bpm] 70 bpm (02/22/25 12:53 AM) 72 bpm (02/21/25 4:26 PM) Blood Pressure [90-138/55-84 mm Hg] 190/80mm Hg *H* (02/22/25 12:53 AM) 165/72mm Hg *H* (02/21/25 4:26 PM) Respiratory Rate [16-30 br/min] 18 br/min (02/22/25 12:53 AM) 18 br/min (02/21/25 6:49 PM) 16 br/min (02/21/25 4:26 PM) Temperature [96.8-100.4 DegF] 98.6 DegF (02/21/25 4:26 PM) Mode of Delivery (Oxygen) Room air (02/22/25 12:53 AM) Room air (02/21/25 4:26 PM) Blood pressure sites Arm, right (02/22/25 12:53 AM) Arm, right (02/21/25 4:26 PM) Temperature Route Oral (02/21/25 4:26 PM) Social History Social History Type Response Smoking Status Never smoker entered on: 05/01/13 Sex Sex Representation Female (finding) Status Unknown EKG study * Event Display: EKG Authored Date: Patient Care team information Care Team Personnel Name: Catherine BOND, Darius Abbott Position: [facility] Renal MD Member Role: Lifetime Consulting Physician Address: [address] [place] [address] [address] [facility] [place], [place] [address] Telecom: Name: Kellie Maria RN Position: [facility] SN RN Member Role: Primary Care Nurse Name: Vance Huerta RN Position: [facility] ED RN W/OE and Tasks Member Role: Primary Care Nurse Name: Dairon Chappell RN Position: S RN Member Role: Primary Care Nurse Name: Alyse Byers RN Position: S RN Member Role: Primary Care Nurse Name: Delilah Aranda RN Position: [facility] RN Member Role: Primary Care Nurse Name: Travis BOND, Josse Position: Reference Physician Member Role: PCP Address: [address] [place], [place] [address] Telecom: Name: Maryann Sanchez RN Position: S RN Member Role: Primary Care Nurse Name: Emma Hagen RN Position: [facility] AMB Nurse Member Role: Primary Care Nurse Name: Paul Emery MD Position: [facility] Renal MD Member Role: Lifetime Consulting Physician Address: [address] [facility] [address] [facility] [address] Telecom: Name: Yaneli Lindquist RN Position: [facility] RN Member Role: Primary Care Nurse Care Team Related Persons Name: GUSTAVO VILLANUEVA Name: CHERRY VILLANUEVA Insurance Providers Guarantor [facility]: [facility] Information #: 1 Payer: [employer] Payer Identifier: JOSÉ MIGUEL Member Number: [id number] Group Number: [id number] [id number] Subscriber Identifier: [id number] Relationship to Subscriber: self Coverage Type: MEDICAID Coverage Verification Date: Telecom: Address:
--- NOTE | ~2025-02-25 | XR_ITS ---
CLINICAL HISTORY: constipation 1 view abdomen Comparison: None provided Findings: No pneumoperitoneum or pneumatosis. No abnormal calcifications. Mild colonic stool burden. No acute fractures. IMPRESSION: Mild colonic stool burden. This document has been electronically signed by: Nkechi Grayson MD on 02/25/2025 23:33:47
[2025-02-25 17:13] VITALS: BP 179/86; PULSE 64; RESP 16; TEMP 36.4; O2SAT 94; BMI 25.1
--- NOTE | 2025-02-25 17:13 | ED_ITS ---
HPI - General Adult General Chief complaint: Abdominal Pain Stated complaint: ABD Pain For Four Days Time Seen by Provider: 02/25/25 21:20 Source: patient, family, RN notes reviewed and old records reviewed Mode of arrival: ambulatory Limitations: language barrier History of Present Illness ED Provider: Hali HPI narrative: 84-year-old female with a past medical history significant for hypertension, obesity, previous CVA with left-sided deficits, diabetes presents for evaluation of abdominal pain with nausea and vomiting. Per the patient's son, the patient has had constipation for about the last 5 days. She was seen at [facility] on 02/21/[address] scan of the chest and abdomen which showed mild proctitis. She was treated with an enema and has had several small bowel movements but no large bowel movement. She continues to complain of lower abdominal pain Denies any rectal pain, black or bloody stool She has tried some MiraLax, Dulcolax and senna without improvement Related Data Home Medications ?Medication ?Instructions ?Recorded ?Confirmed polyethylene glycol 3350 17 gram 17 g PO DAILY 0 01/10/25 oral powder packet (Miralax) metformin 1,000 mg tablet 1,000 mg PO DAILY 01/03/25 1 03/12/24 Previous Rx's ?Medication ?Instructions ?Recorded commode #1 ea 09/24/22 tub transfer bench #1 ea 09/24/22 cyanocobalamin (vitamin B-12) 1,000 mcg PO DAILY 90 da ys #90 tabs 07/20/23 1,000 mcg tablet Held on 07/28/23. Instructions: Doctor's Order sennosides 8.6 mg tablet (Natural 8.6 mg PO BEDTIME #9 0 tabs 07/20/23 Senna Laxative) simethicone 40 mg/0.6 mL oral 0.6 ml PO QID PRN Gas 90 days #30 07/20/23 drops,suspension mL Disposable bed pads-uses 3/day #100 ea 10/06/23 commode (bedside commode) #1 ea 10/06/23 diaper,brief,adult,disposable #100 ea 10/06/23 (Select Disposable Briefs) disposable body wipes #100 ea 10/06/23 disposable gloves #100 ea 10/06/23 standard wheelchair-extra Lg #1 ea 10/06/23 bed rails as ordered #2 ea 10/18/23 hospital bed #1 ea 10/24/23 Thickit See Rx Instructions .Route 0 11/03/23 .COMPLEX #3 packets acetaminophen 650 mg/20.3 mL oral 650 mg (20.3 mL) PO TID PRN pain 11/03/23 suspension 30 days #609 mL Alcohol Prep Pads (alcohol swabs) 1 pad topical TID #2 00 ea 03/01/24 blood sugar diagnostic (FreeStyle #200 ea 03/01/24 Lite Strips) lancets 28 gauge (FreeStyle #200 ea 03/01/24 Lancets) pantoprazole 40 mg tablet,delayed 40 mg PO DAILY #90 t abs 05/25/24 release glipizide 5 mg tablet 5 mg PO ONCE Diabetes 90 day s #90 08/24/24 tabs hydrocortisone 2.5 % topical cream 1 appl topical BID PRN skin 08/24/24 irritation 30 days #30 grams nebulizers #1 ea 08/24/24 trazodone 50 mg tablet 50 mg PO BEDTIME PRN sleep 9 0 days 08/24/24 #90 tabs docusate sodium 100 mg capsule See Rx Instructions PO DAILY PRN 10/09/24 constipation 90 days #180 caps aspirin 81 mg tablet,delayed 81 mg PO DAILY 90 days #9 0 tabs 12/21/24 release (Adult Aspirin Regimen) alprazolam 0.5 mg tablet 0.5 mg PO BEDTIME #30 tabs 1 atenolol 50 mg tablet 50 mg PO BID #180 tabs 01/09 carbidopa 25 mg-levodopa 100 mg 1 tab PO BID #60 tabs 01/09/25 tablet diltiazem HCl 180 mg 180 mg PO DAILY #90 caps 02/21 capsule,extended release 24 hr hydralazine 100 mg tablet 100 mg PO TID #90 tabs 01/09 ipratropium 0.5 mg-albuterol 3 mg 3 ml inhalation Q8H PRN wheezing 01/28/25 (2.5 mg base)/3 mL nebulization 30 days #90 mL soln clonidine HCl 0.1 mg tablet 0.1 mg PO BID PRN HTN #180 tabs 02/06/25 metoclopramide HCl 5 mg tablet 5 mg PO Q8H for nausea/ vomiting 90 02/12/25 days #270 tabs losartan 50 mg tablet 50 mg PO BID #180 tabs 02/19 Allergies Allergy/AdvReac Type Severity Reaction Status Date / Time simvastatin Allergy Unknown shortness Verified 02/25/25 17:18 of breath Review of Systems 2 Constitutional: Constitutional: Denies body ache(s), Denies chills, Denies fever(s) and Denies headache(s) Eyes: Eyes: Denies blurry vision ENT: Denies headache(s) Cardiovascular: Cardiovascular: Denies chest pain and Denies dyspnea on exertion Respiratory: Respiratory: Denies cough and Denies dyspnea on exertion Gastrointestinal: Gastrointestinal: Reports abdominal pain, Reports constipation, Denies diarrhea, Reports nausea and Reports vomiting Musculoskeletal: Musculoskeletal: Denies back pain Integumentary/Breasts: Skin/Breast: Denies rash Neurologic: Denies headache(s) FOR[facility]LY [facility], [facility] Past Medical History Medical History (Updated 02/25/25 @ 23:46 by Israel Lal) Dysarthria CVA (cerebral vascular accident) Iron deficiency Low hemoglobin Constipation by delayed colonic transit Gastroparesis Bladder disorder Anxiety, generalized Hypertension, essential Diabetes 1.5, managed as type 2 Surgical History No pertinent past surgical history Family History Family History Father No problems noted. Mother No problems noted. Brother Diabetes Sister Diabetes Social History Social History Household Members: Children Housing: House Are you a primary lead care manager to a significant other at home: No Do you presently have visiting nurse or other home services: Yes (physical therapy) Alcohol intake: never Patient Tobacco Use Status: Never used Tobacco Smoked in Last 30 Days: No e-Cigarette/Vaping Use: Never Used Use of substances other than those prescribed or required for medical reasons: No Advance Directives: No Advance Directives Information Provided: No Do you have a plan to hurt others: No Plan service: No Current occupational status: retired Cognitive needs: No Hearing needs: No Vision needs: Yes Physical Exam ED Vital Signs: Vital Signs - 24 hr 02/25/25 17:13 Temperature 97.6 F Pulse Rate 64 Respiratory Rate 16 Blood Pressure 179/86 H Pulse Oximetry 94 Oxygen Delivery Method Room Air BMI result Body Mass Index 25.1 Const General: healthy appearing, comfortable, no acute distress, alert and awake Nutritional Appearance: well nourished Orientation/consciousness: patient oriented x3 HENMT Head: Yes normocephalic and Yes atraumatic Eyes Eyelids: Yes eyelids normal Conjunctivae: conjunctivae normal Sclerae: sclerae normal Corneas: corneas normal Pupils: Equal, round and reactive pupils present EOM: EOMs intact bilaterally Neck Neck: Yes full ROM Resp Effort & Inspection: normal respiratory effort, able to speak in complete sentences and not labored GI Inspection: No distended Palpation (GI): Soft to palpation, not firm, nontender, no guarding and not rigid Skin General skin exam: elasticity normal Neuro General: patient oriented x3 Cranial nerves: Yes Equal, round and reactive pupils present and Yes Bilaterally intact EOM present Cognition (Neuro): normal cognition Extrem Other: Moving all extremities well without any obvious deformities Course Course Course Narrative: Rapid medical examination performed in triage by Christine Cuenca PA-C: Patient is an 84 year old female presenting to the emergency department with lower abdominal pain. Patient states nausea, vomiting, and abdominal pain. Patient's son states that the patient was recently seen at [facility] and diagnosed with a large stool ball, given an enema and was able to go, but the pain continues. Detailed physical exam and review of systems are deferred to the melting furnace skimmer. Labs ordered. Patient placed back in the waiting room pending room availability and results. Reevaluation(s) Reevaluation #1: The patient had a very large bowel movement after lactulose. She was not given the enema or magnesium citrate and family did not want her to have these. He is orders were canceled. Still awaiting official report of KUB Time: 23:05 Medications Administered Discontinued Medications Generic Name Dose Route Start Last Admin Trade Name Freq PRN Reason Stop Dose Admin Lactulose 40 gm 02/25/25 21:50 02/25/25 22:02 Lactulose 20 Gm/30 Ml Solution PO 02/25/25 21:51 40 gm ONCE ONE Administration Medical Decision Making Medical Decision Making MDM Narrative: 84-year-old female presents for evaluation of continued constipation abdominal pain, nausea and vomiting. She has had no improvement with an enema. I was able to view [facility] records through [facility]. She did have a CT scan performed on the , 4 days ago. This showed possible proctitis. The patient is quite well appearing with a reassuring exam. We will obtain a KUB to evaluate for rectal stool ball versus more diffuse constipation. We will treat with lactulose, magnesium citrate and an enema in the meantime Differential Diagnosis Differential Diagnoses: The differential diagnosis associated with the presentation includes constipation Proctitis Gastroenteritis Stool ball Lab Data MDM Lab Attestation statement: I reviewed the patient's lab results. No leukocytosis or significant anemia. The patient has a mild hyponatremia of 132. This may be due to her recent laxatives. I do not see any diuretics on her medication list. No other significant chemistry abnormalities. The patient has an elevated glucose of 176, but is a known diabetic. There was no evidence of DKA 02/25/25 17:29 02/25/25 17:29 Labs: Lab Results 02/25/25 Range/Units 17:29 WBC 7.6 (4.8-10.8) X10*3/uL RBC 4.40 (4.20-5.50) X10*6/uL Hgb 12.1 D (12.0-16.0) g/dl Hct 36.4 L D (37.0-47.0) % MCV 82.7 (80.0-98.0) fL MCH 27.5 (27.0-33.0) pg MCHC 33.2 (31.0-35.0) g/dl RDW 13.5 (11.0-16.0) % Plt Count 357 D (160-400) X10*3/uL MPV 9.3 L (9.4-12.3) fL Immature Gran % (Auto) 0.3 (0.0-0.4) % Neut % (Auto) 62.4 (45-73) % Lymph % (Auto) 27.4 (20-40) % [place] % (Auto) 8.2 (2-11) % Eos % (Auto) 1.2 (0-4) % Baso % (Auto) 0.5 (0-2) % Lymph # (Auto) 2.1 (1.2-4.9) X10*3/uL [place] # (Auto) 0.6 (0.1-1.2) X10*3/uL Eos # (Auto) 0.1 (0.0-0.4) X10*3/uL Baso # (Auto) 0.0 (0.0-0.2) X10*3/uL Abs Immat Gran (auto) 0.02 (0.00-0.03) X10*3/uL Absolute Neuts (auto) 4.7 (2.0-8.3) x10*3/uL Absolute Nucleated RBC 0.000 (0.0-0.012) X10*3/uL Nucleated RBC % (auto) 0.0 (0.0-0.2) /100WBC Sodium 132 L (135-145) mmol/L Potassium 3.8 (3.3-5.1) mmol/L Chloride 102 (96-108) mmol/L Carbon Dioxide 22 (22-29) mmol/L Anion Gap 12 (12-20) BUN 9 (9-16) mg/dL Creatinine 0.52 (0.5-1.4) mg/dL Estim Creat Clear Calc 63.2 Estimated GFR > 60 Random Glucose 176 H (60-115) mg/dL Calcium 9.7 (8.4-10.2) mg/dL Magnesium 2.2 (1.6-2.6) mg/dL Total Bilirubin 0.7 (0.0-1.0) mg/dL AST 13 (5-31) U/L ALT 6 (0-31) U/L Alkaline Phosphatase 97 (39-117) U/L Total Protein 7.8 (6.5-8.0) g/dL Albumin 3.9 (3.5-5.0) g/dL Radiology Impression Discussion of test interpretation with radiology: I have reviewed the radiologist's reading. Radiologist Impression: Findings: No pneumoperitoneum or pneumatosis. No abnormal calcifications. Mild colonic stool burden. No acute fractures. IMPRESSION: Mild colonic stool burden. This document has been electronically signed by: Nkechi Grayson MD on 02/25/2025 23:33:47 Discharge Plan Discharge Clinical Impression: Constipation Patient Disposition: Home, Self-Care Instructions: Constipation (ED), High Fiber Diet (ED) Additional Instructions: Your x-ray only showed mild constipation. I recommend MiraLax every day for the next 2 weeks. Increase fluid and fiber intake in your diet. Your sodium was slightly low at 132, this could be due from the laxative that you has been taking. If you have no history of congestive heart failure or significant swelling, you may increase your salt intake slightly Follow up with your primary doctor to have your labs rechecked in the next 2 weeks Prescriptions: No Action (DME) tub transfer bench See Rx Instructions .Route .MEDSUPPLY Qty: 1 0RF Rx Instructions: As directed (DME) commode Kit See Rx Instructions .Route Qty: 1 0RF Rx Instructions: 3-in-1 commode chair (DME) bedside commode Kit See Rx Instructions .Route Qty: 1 0RF Rx Instructions: Extra large bedside commode use As directed (DME) Disposable bed pads-uses 3/day See Rx Instructions .Route .MEDSUPPLY Qty: 100 11RF Rx Instructions: As directed (DME) Select Disposable Briefs Misc See Rx Instructions .Route Qty: 100 11RF Rx Instructions: Uses 3 per day As directed, Extra Large (DME) disposable gloves Misc See Rx Instructions .Route Qty: 100 11RF Rx Instructions: Use As directed (DME) disposable body wipes See Rx Instructions .Route .MEDSUPPLY Qty: 100 11RF Rx Instructions: Use As directed (DME) standard wheelchair-extra Lg See Rx Instructions .Route .MEDSUPPLY Qty: 1 0RF Rx Instructions: Use As directed (DME) bed rails as ordered See Rx Instructions .Route .MEDSUPPLY Qty: 2 0RF Rx Instructions: As directed (DME) hospital bed Kit See Rx Instructions .Route Qty: 1 0RF Rx Instructions: Full electric hospital bed with bilateral half rails (DME) lancets [FreeStyle Lancets] 28 gauge misc See Rx Instructions .Route Qty: 200 11RF Rx Instructions: check blood sugar 3 times daily as directed alcohol swabs [Alcohol Prep Pads] Pads, Medicated 1 pad topical TID Qty: 200 11RF (DME) nebulizers Misc See Rx Instructions .Route Qty: 1 0RF Rx Instructions: As directed for updraft treatment, with supplies trazodone 50 mg tablet 50 mg PO BEDTIME PRN (Reason: sleep) 90 Days Qty: 90 1RF docusate sodium 100 mg capsule See Rx Instructions PO DAILY PRN (Reason: constipation) 90 Days Qty: 180 1RF Rx Instructions: orally daily PRN; 1-2 capsules by mouth every night at bedtimes PRN aspirin [Adult Aspirin Regimen] 81 mg tablet,delayed release (DR/EC) 81 mg PO DAILY 90 Days Qty: 90 3RF alprazolam 0.5 mg tablet 0.5 mg PO BEDTIME Qty: 30 3RF carbidopa-levodopa 25-100 mg tablet 1 tab PO BID Qty: 60 0RF ipratropium-albuterol 0.5 mg-3 mg(2.5 mg base)/3 mL solution for nebulization 3 ml inhalation Q8H PRN (Reason: wheezing) 30 Days Qty: 90 6RF clonidine HCl 0.1 mg tablet 0.1 mg PO BID PRN (Reason: HTN) Qty: 180 1RF metoclopramide HCl 5 mg tablet 5 mg PO Q8H 90 Days Qty: 270 3RF losartan 50 mg tablet 50 mg PO BID Qty: 180 1RF polyethylene glycol 3350 [Miralax] 17 gram powder in packet 17 g PO DAILY cyanocobalamin (vitamin B-12) 1,000 mcg tablet 1,000 mcg PO DAILY 90 Days Qty: 90 3RF sennosides [Natural Senna Laxative] 8.6 mg tablet 8.6 mg PO BEDTIME Qty: 90 3RF Rx Instructions: take 1-2 tablets by mouth every night at bedtimes PRN for constipation simethicone 40 mg/0.6 mL drops,suspension 0.6 ml PO QID PRN (Reason: Gas) 90 Days Qty: 30 3RF Thickit See Rx Instructions .ROUTE .COMPLEX Qty: 3 3RF Rx Instructions: use as directed acetaminophen 650 mg/20.3 mL suspension 650 mg PO TID PRN (Reason: pain) 30 Days Qty: 609 2RF hydralazine 100 mg tablet 100 mg PO TID Qty: 90 3RF atenolol 50 mg tablet 50 mg PO BID Qty: 180 3RF diltiazem HCl 180 mg capsule,extended release 24hr 180 mg PO DAILY Qty: 90 4RF metformin 1,000 mg tablet 1,000 mg PO DAILY (DME) FreeStyle Lite Strips Strip See Rx Instructions .ROUTE .MEDSUPPLY Qty: 200 3RF Rx Instructions: test blood sugar three times a day pantoprazole 40 mg tablet,delayed release (DR/EC) 40 mg PO DAILY Qty: 90 3RF glipizide 5 mg tablet 5 mg PO ONCE 90 Days Qty: 90 0RF hydrocortisone 2.5 % cream 1 appl topical BID PRN (Reason: skin irritation) 30 Days Qty: 30 0RF Print Language: Laurence
[2025-02-25 17:39] LABS: MANUAL DIFF FLAG NO
[2025-02-25 17:40] LABS: Hematocrit 36.4 % (37.0-47.0); Hemoglobin 12.1 g/dl (12.0-16.0); Imm Gran Abs Auto 0.02 X10*3/uL (0.00-0.03); Imm Gran Pct Auto 0.3 % (0.0-0.4); Lymphocytes Absolute Auto 2.1 X10*3/uL (1.2-4.9); Mean Corpuscular HGB Conc 33.2 g/dl (31.0-35.0); Mean Corpuscular Hemoglobin 27.5 pg (27.0-33.0); Mean Corpuscular Volume 82.7 fL (80.0-98.0); NRBC Abs Auto 0.000 X10*3/uL (0.0-0.012); NRBC Pct Auto 0.0 /100WBC (0.0-0.2); Platelet Count 357 X10*3/uL (160-400); Red Blood Count 4.40 X10*6/uL (4.20-5.50); White Blood Count 7.6 X10*3/uL (4.8-10.8)
[2025-02-25 18:08] LABS: Alanine Aminotransferase 6 U/L (0-31); Albumin Level 3.9 g/dL (3.5-5.0); Alkaline Phosphatase 97 U/L (39-117); Anion Gap 12 (12-20); Aspartate Amino Transferase 13 U/L (5-31); Blood Urea Nitrogen 9 mg/dL (9-16); Calcium 9.7 mg/dL (8.4-10.2); Carbon Dioxide 22 mmol/L (22-29); Chloride 102 mmol/L (96-108); Creatinine Clr Calc Pharmacy 63.2; Estimated Glomerular Filt Rate > 60; Magnesium 2.2 mg/dL (1.6-2.6); Potassium 3.8 mmol/L (3.3-5.1); Sodium 132 mmol/L (135-145); Total Protein 7.8 g/dL (6.5-8.0)
--- OUTSIDE RECORDS SUMMARY | 2025-02-25 21:26 | XMS_ITS | Clinical Summary ---
Author Organization [facility] Address [address] [facility] [address] [place] [address] Phone Care Team Providers Care Web Master Name Role Phone Josse Robles MD Primary Care Provider [phone] Allergies No known active allergies Medications aspirin [...] ID:Not on file Type:Not on file Address: [address] Medicaid [place] Member Subscriber Plan / Payer (Ef fective 2020-Present) Name:Bimal Bower Relation to Subscriber:Self Name:Bimal Bower Payer ID:Not on file Group ID:Not on file Type:Not on file Address: [place] [id number] Care Teams Web Master Relationship Specialty Start Date End Date Josse Robles MD [address] [place] [id number] PCP - General 03/10/20
--- OUTSIDE RECORDS SUMMARY | 2025-02-25 21:26 | XMS_ITS | Encounter Summary ---
Author Organization [facility] Address [address] [place] [address] Phone Care Team Providers Care Pillowcase Cutter Name Role Phone Josse Robles MD Primary Care Provider [phone] Encounter Details Date Type Department Care Team (Late st Contact Info) Description 04/20/2021 Telephone [facility] [address] [place] [address] Darius Alexander MD Social History [...] a refill for atenolol. Please send to [facility] on [address] Thank you documented in this encounter Plan of Treatment Not on file documented as of this encounter Visit Diagnoses Not on filedocumented in this encounter Care Teams Pillowcase Cutter Relationship Specialty Start Date End Date Josse Robles MD [address] [place] [id number] PCP - General 03/10/20 documented as of this encounter
--- OUTSIDE RECORDS SUMMARY | 2025-02-25 21:26 | XMS_ITS | Patient Health Record ---
Author Organization [facility] Address [address] [facility] [address] [place] [address] Support Name Relationship Address Phone CRISTINA VILLANUEVA [...] Coverage Start Date Coverage End Date [facility] [employer] [address] [address] [place], [place] [id number] CRISTINA VILLANUEVA Self - patient is the insured
[2025-02-25 23:48] VITALS: BP 187/76; PULSE 66; RESP 20; TEMP 36.5; O2SAT 96
[2025-02-26 00:12] VITALS: BP 187/76; PULSE 66; RESP 20; TEMP 36.5; O2SAT 96
== END 2025-02-26 00:15 | disposition home or self-care (01) ==
PROVIDERS: Physician Assistant Medical; Emergency Provider Emergency Medicine; PCP Internal Medicine
DX: K59.00 Constipation, unspecified (principal); K62.89 Other specified diseases of anus and rectum; R10.20 Pelvic and perineal pain unspecified side; R11.2 Nausea with vomiting, unspecified; E13.9 Other specified diabetes mellitus without complications; I10 Essential (primary) hypertension; Z86.73 Personal history of transient ischemic attack (TIA), and cerebral infarction without residual deficits; Z79.899 Other long term (current) drug therapy; Z79.84 Long term (current) use of oral hypoglycemic drugs
CPT/HCPCS: 36415; 74018; 80053; 83735; 85025; 99284

== ENCOUNTER → 2025-02-25 21:40 | Outpatient (BNV) | payer MEDICAID, SELFPAY | PROVIDERS: Emergency Provider Emergency Medicine; PCP Internal Medicine; Visit Provider Student in an Organized Health Care Education/Training Program | DX: K59.00 Constipation, unspecified (principal) | CPT/HCPCS: 74018 ==